=== PATIENT | female | born 1970 | race American Indian/Alaskan Native ===

== ENCOUNTER 2020-07-16 09:24 | Outpatient (REF) | payer OTHER, SELFPAY | END 2020-07-16 09:25 | disposition home or self-care (01) | LOC: HO.HAP 09:24 | PROVIDERS: Visit Provider Physician Assistant | DX: Z46.1 Encounter for fitting and adjustment of hearing aid (principal) | CPT/HCPCS: V5264; V5266 ==

== ENCOUNTER 2020-08-17 08:19 | Outpatient (REF) | payer OTHER, SELFPAY ==
--- NOTE | 2020-08-17 08:23 | CT_ITS ---
EXAMINATION: CT HEAD WITHOUT CONTRAST CLINICAL INFORMATION: Headaches. COMPARISON: None TECHNIQUE: Contiguous axial imaging was performed from the skull base to vertex without intravenous administration of contrast. Coronal and sagittal reformatted images were obtained. This CT examination was performed using dose optimization techniques as appropriate, variously including the following: *Automated exposure control *Adjustment of mA and/or kV according to patient size (this includes techniques or standardized protocols for targeted exams where dose is matched to indication/reason for exam; i.e. extremities or head) *Use of iterative reconstruction technique DLP: 708 mGy-cm FINDINGS: There is no evidence of acute intracranial hemorrhage or territorial infarction. No abnormal mass effect or midline shift is seen. Thompson to white matter differentiation is well preserved. No extra-axial fluid collections are identified. The ventricles are normal in size. There is no abnormal attenuation within the brain parenchyma. The osseous structures and soft tissues are normal. The visualized paranasal sinuses are clear. There is hypoaeration of the left mastoid air cells without abnormality. The right mastoid air cells are clear. CT/CT head/brain wo con IMPRESSION: No acute intracranial pathology.
== END 2020-08-17 08:20 | disposition home or self-care (01) ==
LOC: HO.CT 08:19
PROVIDERS: PCP Physician Assistant; Visit Provider Physician Assistant
DX: R51.9 Headache, unspecified (principal)
CPT/HCPCS: 70450

== ENCOUNTER 2020-11-02 12:11 | Outpatient (REF) | payer OTHER, SELFPAY | END 2020-11-02 12:12 | disposition home or self-care (01) | LOC: HO.LAB 12:11 | PROVIDERS: Visit Provider Internal Medicine | DX: Z20.822 Contact with and (suspected) exposure to COVID-19 (principal) | CPT/HCPCS: 36415; C9803; U0003; U0005 ==

== ENCOUNTER 2020-11-23 15:40 | Outpatient (REF) | payer OTHER, SELFPAY | END 2020-11-23 15:41 | disposition home or self-care (01) | LOC: HO.LAB 15:40 | PROVIDERS: Visit Provider Internal Medicine | DX: Z20.822 Contact with and (suspected) exposure to COVID-19 (principal) | CPT/HCPCS: 36415; C9803; U0003; U0005 ==

== ENCOUNTER 2020-11-28 12:06 | Outpatient (REF) | payer OTHER, SELFPAY ==
[2020-11-28 13:19] LABS: MANUAL DIFF FLAG NO
[2020-11-28 13:34] LABS: Basophils Percent Auto 0.5 % (0-2); Eosinophils Absolute Auto 0.1 X10*3/uL (0.0-0.4); Eosinophils Percent Auto 0.9 % (0-4); Hematocrit 35.9 % (37-47); Hemoglobin 11.2 g/dl (12.0-16.0); Imm Gran Abs Auto 0.03 X10*3/uL (0.00-0.03); Imm Gran Pct Auto 0.5 % (0.0-0.4); Lymphocytes Absolute Auto 1.9 X10*3/uL (1.2-4.9); Lymphocytes Percent Auto 29.2 % (20-40); Mean Corpuscular HGB Conc 31.2 g/dl (31.0-35.0); Mean Corpuscular Hemoglobin 26.4 pg (27.0-33.0); Mean Corpuscular Volume 84.7 fL (80-98); Mean Platelet Volume 10.6 fL (9.4-12.3); Monocytes Absolute Auto 0.6 X10*3/uL (0.1-1.2); Monocytes Percent Auto 9.1 % (2-11); Neutrophils Absolute Auto 3.9 X10*3/uL (2.0-8.3); Neutrophils Percent Auto 59.8 % (45-73); Platelet Count 415 X10*3/uL (160-400); Red Blood Count 4.24 X10*6/uL (4.20-5.50); Red Cell Distribution Width 12.4 % (11.0-16.0); White Blood Count 6.6 X10*3/uL (4.8-10.8)
[2020-11-28 13:48] LABS: Alanine Aminotransferase 21 U/L (0-31); Albumin Level 4.6 g/dL (3.5-5.0); Alkaline Phosphatase 70 U/L (39-117); Amylase 146 U/L (28-100); Anion Gap 13 (12-20); Aspartate Amino Transferase 19 U/L (5-31); Bilirubin Total 0.6 mg/dL (0.0-1.0); Blood Urea Nitrogen 14 mg/dL (9-16); Calcium 9.4 mg/dL (8.4-10.2); Carbon Dioxide 26 mmol/L (22-29); Chloride 104 mmol/L (96-108); Estimated Glomerular Filt Rate > 60; Glucose Fasting 92 mg/dL (60-99); Lipase 41 U/L (8-78); Potassium 4.6 mmol/L (3.3-5.1); Sodium 138 mmol/L (135-145); Total Protein 7.9 g/dL (6.5-8.0)
[2020-11-28 13:49] LABS: Glucose Urine UA NEG (NEG); Leukocyte Esterase Urine 2+ (NEG); Nitrite Urine NEG (NEG); Specific Gravity - Urine 1.025 (1.005-1.025); Urine Blood NEG (NEG); Urine Ketones NEG (NEG); Urine Protein NEG (NEG-TRACE)
[2020-11-28 13:58] LABS: Appearance Urine HAZY; Color Urine YELLOW
[2020-11-28 14:15] LABS: Bacteria Urine 1+ /LPF; Mucus Urine 1+ /LPF; RBC Urine 0 /HPF (0); Squamous Epithelial Cell Urine 2+ /LPF
== END 2020-11-28 12:07 | disposition home or self-care (01) ==
LOC: HO.LAB 12:06
PROVIDERS: PCP Physician Assistant; Visit Provider Nurse Practitioner Family
DX: K76.0 Fatty (change of) liver, not elsewhere classified (principal); Z87.19 Personal history of other diseases of the digestive system
CPT/HCPCS: 36415; 80053; 81001; 82150; 83690; 85025

== ENCOUNTER 2020-12-10 13:10 | Outpatient (REF) | payer OTHER, SELFPAY ==
--- NOTE | ~2020-12-10 | MM_ITS ---
EXAMINATION: MM SCREENING DIGITAL BREAST TOMOSYNTHESIS, BILATERAL CLINICAL INFORMATION: Screening. Asymptomatic. The lifetime risk of breast cancer based on the Tyrer-Cuzick Model is 11%. COMPARISON: Mammography: 12/07/2019, 10/15/2016 TECHNIQUE: Digital breast tomosynthesis is performed in both the craniocaudal and mediolateral oblique views along with computer-aided detection (CAD). Synthesized 2D images are generated from the tomosynthesis. FINDINGS: There are scattered areas of fibroglandular density (ACR BI-RADS breast composition Category b). There are no significant masses, abnormal calcifications, or other abnormalities. Parenchymal pattern is similar to prior study. There is biopsy clip marker again noted posterior 12:00 right breast. No significant changes. MM/MM tomosynthesis screening BI IMPRESSION: No mammographic evidence of malignancy. ASSESSMENT: BI-RADS 1: Negative RECOMMENDATION: Routine annual mammography screening. This patient's information was entered into a reminder system with a target due date for their next mammogram.
== END 2020-12-10 13:11 | disposition home or self-care (01) ==
LOC: HO.MAMMO 13:10
PROVIDERS: Visit Provider Physician Assistant
DX: Z12.31 Encounter for screening mammogram for malignant neoplasm of breast (principal)
CPT/HCPCS: 77063; 77067

== ENCOUNTER 2021-02-20 13:00 | Outpatient (RCR) | payer OTHER, SELFPAY ==
--- NOTE | 2021-02-05 13:23 | MHC.OT.OEV ---
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 WAS SEEN AT [facility] ER WITH ELEVATED BP, CP AND R UE PAIN. Pt REPORTS IMAGING CAME BACK NEGATIVE. DIAGNOSIS OF CELLULITIS. 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 (CLIENT A : 5 HOURS THURSDAY THROUGH THURSDAY + CLIENT B : 5 HOURS THURSDAY THROUGH THURSDAY) JOB DUTIES FOR CLIENT A INCLUDE: ROLLING, TRANSFERRING, HYGIENE, USING JENNY LIFT MACHINE (150 LB CLIENT) CLIENT B : COOKING, CLEANING, TRANSPORTATION, BATHING/DRESSING AND ASSISTING WITH BED MOBILITY (230 POUND CLIENT) AT HOME, DIFFICULTLY WITH LIFTING HEAVY ITEMS, OPENING A TIGHT JAR, USING NON-DOMINANT LUE FOR STIRRING, VACUUMING DUE TO PAIN IN RUE FOR IADLs Sleep: MODERATE INTERRUPTION WITH SLEEPING DUE TO PAIN Driving: PAIN WITH TURNING WHEEL Pain Assessment Pain Score: 3-9/10 Pain Scale Used: Numeric (0 - 10) Pain Location and Description: RIGHT AUXILIARY REGION, R LATERAL/ MEDIAL ELBOW AND VOLAR FOREARM AND WRIST NONSPECIFIC RADIATING PAIN Aggravating Factors: LIFTING, CARRYING Alleviating Factors: USING IBUPROPHEN FOR PAIN RELIEF, HAS NOT TRIED ICE OR HEAT Skin and Soft Tissue Assessment Skin and Soft Tissue: Swelling Ecchymosis Comments: R VOLAR FOREARM AND ELBOW WITH MILD SWELLING MEDIALLY > PROXIMALLY , SMALL AREAS OF ECCHYMOSIS AT R FOREARM Nerve assessment Ulnar Nerve: Not Tested Median Nerve: Not Tested Radial Nerve: Not Tested Comments: CONTINUE TO ASSESS Sensory Assessment Temperature: Light Touch: WFL Proprioception: Vibration: Comments: Edema Assessment Upper Extremity: Right Impaired Lower Extremity: Comments: CIRCUMFERENCE OF WRIST, DISTAL TO U.S. : RIGHT 14.6 CM, LEFT 14.9 CM CIRCUMFERENCE OF FOREARM, 17 CM FROM U.S.: RIGHT: 24.3 CM, LEFT 23.7 CM CIRCUMFERENCE OF ELBOW: RIGHT: 24.0 CM, LEFT: 23.8 CM Dexterity Assessment Dexterity: WFL Comments: FUNCTIONAL DEXTERITY TEST: RIGHT 32 SECONDS (MODERATELY FUNCTIONAL) , LEFT: 28 SECONDS (MODERATELY FUNCTIONAL) Special Tests Comments: RONNIE (+) ON R AROM(PROM) Strength Shoulder Flexion: R 150, L 180 Extension: Abduction: Internal Rotation: External Rotation: Comments: Flexion: Extension: Abduction: Internal Rotation: External Rotation: Comments: Elbow Flexion: R 140, L 140 Extension: R 0, L 0 Pronation: R 90, L 95 Supination: R 85, L 90 Comments: Flexion: Extension: Pronation: Supination: Comments: Wrist Flexion: R 80, L 70 Extension: R 75, L 70 Ulnar Deviation: Radial Deviation: Comments: Flexion: Extension: Ulnar Deviation: Radial Deviation: Comments: Digits Index MCP: PIP: DIP: Long MCP: PIP: DIP: Ring MCP: PIP: DIP: Small MCP: PIP: DIP: Comments: Gross Grasp: R 22, L 60 Lateral Pinch: R 6, L 13 Two-Point Pinch: R 4, L 8 Three-Jaw Lokesh: R 5, L 7 Comments: R ELBOW FLEXED 22 POUNDS, ELBOW EXTENDED 30 POUNDS Patient Education 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 Patient demonstrates Patient verbalizes Barriers to Learning: None Readiness for Learning: Accepting Who was educated? Patient Family/spouse Comments: Plan of Care Assessment: DALE PRESENTS WITH A DIAGNOSIS OF RIGHT LATERAL EPICONDYLITIS TO HER DOMINANT RUE. SHE REPORTS BEGINNING A NEW POSITION WITH A NEW CLIENT ABOUT A MONTH AND A HALF AGO. SHE WAS TRANSFERRING THIS PATIENT FROM BED TO CHAIR VIA A JENNY LIFT, WHEN SHE DEVELOPED A PAIN RADIATING DOWN HER RIGHT ARM. SHE HAS GENERALIZED PAIN FROM 3-9/10 THROUGHOUT HER RUE. SHE REPORTS A 41% LIMITATION PER THE QUICK DASH ASSESSMENT. 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 ONGOING SKILLED OT IS WARRANTED TO ACHIEVE HER OPTIMAL FUNCTIONAL LEVEL AND IMPROVE QOL. STG Duration: 2 WEEKS Short Term Goals: IND HEP IND USE OF HEAT/ ICE IND JOINT PROTECTION AND ACTIVITY MODIFICATION REPORT <5/10 PAIN WITH ADLs AND LIGHT IADLs LTG Duration: 4 WEEKS Mcc Goals: QUICKDASH <20 R GRASP > 40 POUNDS DEMO PROPER LIFTING, TRANSFERRING TECHNIQUES FOR WORK RELATED TASKS LIFT WAIST TO HEIGHT >10 POUNDS WITH <4/10 PAIN Frequency and Duration: The patient will be seen 2X/WEEK FOR 4 WEEKS Treatment Plan: Therapeutic Exercise Therapeutic Activity Home Exercise Program Splinting Neuro Re-ed Patient Education Desensitization/Sensory Re-ed Edema Control ADL Training Ultrasound NMES Iontophoresis Paraffin Fluidotherapy MHP Cold Packs Joint Mobilization Soft Tissue Mobilization Kinesiotaping Electronically Signed By: ARUNA YUSUF OTR/L Reviewed/agree with student documentation: N/A Therapist: Please sign and return to therapist, Thank you for your referral.
--- NOTE | 2021-03-18 13:43 | MHC.OT.DC ---
[address] [phone] F: [phone] Occupational Therapy Discharge Note Provider: Boston Garza Diagnosis: LATERAL EPICONDYLITIS OF RIGHT ELBOW Date of Evaluation: 02/05/21 Date of Discharge: 03/18/21 Treatments to Date: 4 Cancellations to Date: 3 No Shows to Date: 3 Discharge Status: Improved Function Patient Elected to Stop Discharge Summary: MS LAWSON REPORTED ONGOING PAIN TO HER DOMINANT, RIGHT ELBOW. SHE WAS EDUCATED ON JOINT PROTECTION AND THERAPEUTIC EXERCISE, WELL USE OF HEAT/COLD. SHE WAS MOTIVATED TO PARTICIPATE, HOWEVER DECLINED TO FOLLOW THROUGH WITH HER OT APPOINTMENTS DESPITE ATTEMPTS TO CONTACT PATIENT. SHE WILL BE DISCHARGED AT THIS TIME. D/C OT SERVICES. Electronically Signed By: ARUNA YUSUF OTR/Cheryl Reviewed/agree with student documentation: N/A Therapist: Please Sign and return to therapist, thank you for your referral.
== END 2021-03-18 13:45 | disposition other institution (70) ==
LOC: HO.OT 13:00
PROVIDERS: PCP Physician Assistant; Visit Provider Internal Medicine
DX: M77.11 Lateral epicondylitis, right elbow (principal)
CPT/HCPCS: 97035; 97110; 97140; 97165; 97166

== ENCOUNTER 2021-05-28 09:23 | Outpatient (REF) | payer OTHER, SELFPAY ==
[2021-05-28 10:21] LABS: Alanine Aminotransferase 16 U/L (0-31); Albumin Level 4.2 g/dL (3.5-5.0); Alkaline Phosphatase 83 U/L (39-117); Anion Gap 10 (12-20); Aspartate Amino Transferase 17 U/L (5-31); Bilirubin Total 0.6 mg/dL (0.0-1.0); Blood Urea Nitrogen 9 mg/dL (9-16); Calcium 9.1 mg/dL (8.4-10.2); Carbon Dioxide 26 mmol/L (22-29); Chloride 105 mmol/L (96-108); Cholesterol 210 mg/dL; Estimated Glomerular Filt Rate > 60; Glucose Fasting 90 mg/dL (60-99); HDL Cholesterol 57 mg/dL; LDL Cholesterol Calculated 118 mg/dl; Potassium 4.4 mmol/L (3.3-5.1); Sodium 137 mmol/L (135-145); Total Protein 7.1 g/dL (6.5-8.0); Triglycerides 175 mg/dL
[2021-05-28 10:44] LABS: TSH reflex Free T4 1.42 uIU/mL (0.32-4.0)
[2021-05-28 14:34] LABS: Estimated Average Glucose 94 mg/dL; Hemoglobin A1c % 4.9 %
== END 2021-05-28 09:24 | disposition home or self-care (01) ==
LOC: HO.LAB 09:23
PROVIDERS: PCP Physician Assistant; Visit Provider Physician Assistant
DX: Z13.220 Encounter for screening for lipoid disorders (principal); Z13.1 Encounter for screening for diabetes mellitus; I10 Essential (primary) hypertension
CPT/HCPCS: 36415; 80053; 80061; 83036; 84443

== ENCOUNTER 2021-06-28 09:44 | Outpatient (REF) | payer OTHER, SELFPAY ==
[2021-06-28 10:59] LABS: C Reactive Protein 0.43 mg/dL (< or = 0.50)
[2021-06-28 11:30] LABS: Erythrocyte Sedimentation Rate 25 MM/HR (0-20)
[2021-06-28 11:36] LABS: Appearance Urine CLEAR; Color Urine YELLOW; Glucose Urine UA NEG (NEG); Leukocyte Esterase Urine NEG (NEG); Nitrite Urine NEG (NEG); Specific Gravity - Urine 1.025 (1.005-1.025); Urine Blood NEG (NEG); Urine Ketones NEG (NEG); Urine Protein NEG (NEG-TRACE)
== END 2021-06-28 09:45 | disposition home or self-care (01) ==
LOC: HO.LAB 09:44
PROVIDERS: PCP Physician Assistant; Visit Provider Physician Assistant
DX: R51.9 Headache, unspecified (principal); R30.0 Dysuria; N39.0 Urinary tract infection, site not specified
CPT/HCPCS: 36415; 81003; 85652; 86140

== ENCOUNTER → 2021-07-02 10:31 | Outpatient (BNVA) | payer OTHER, SELFPAY | PROVIDERS: PCP Physician Assistant; Visit Provider Psychiatry & Neurology Neurology | DX: F51.01 Primary insomnia (principal); G47.9 Sleep disorder, unspecified; G47.10 Hypersomnia, unspecified; N39.0 Urinary tract infection, site not specified; A04.71 Enterocolitis due to Clostridium difficile, recurrent; Z88.6 Allergy status to analgesic agent; Z88.0 Allergy status to penicillin; Z88.7 Allergy status to serum and vaccine; Z88.8 Allergy status to other drugs, medicaments and biological substances | CPT/HCPCS: 99202 ==

== ENCOUNTER 2021-07-23 07:41 | Outpatient (REF) | payer OTHER, SELFPAY ==
--- NOTE | ~2021-07-23 | XR_ITS ---
EXAMINATION: XR KNEE AP STANDING, BILATERAL XR KNEE, 2 VIEWS, LEFT CLINICAL INFORMATION: Pain. COMPARISON: Bilateral knee radiographs dated 03/23/2020 TECHNIQUE: Standing AP view of both knees and lateral and sunrise views of the left knee. FINDINGS: Right knee: No joint space narrowing or marginal osteophytes. No osseous erosion. No abnormal soft tissue calcification. No fracture or dislocation. Left knee: No joint space narrowing. Tiny patellofemoral marginal osteophytes, unchanged. No osseous erosion. No fracture or dislocation. No significant joint effusion. XR/XR knee standing BI IMPRESSION: Mild left knee patellofemoral arthrosis, unchanged.
--- NOTE | ~2021-07-23 | XR_ITS ---
EXAMINATION: XR KNEE AP STANDING, BILATERAL XR KNEE, 2 VIEWS, LEFT CLINICAL INFORMATION: Pain. COMPARISON: Bilateral knee radiographs dated 03/23/2020 TECHNIQUE: Standing AP view of both knees and lateral and sunrise views of the left knee. FINDINGS: Right knee: No joint space narrowing or marginal osteophytes. No osseous erosion. No abnormal soft tissue calcification. No fracture or dislocation. Left knee: No joint space narrowing. Tiny patellofemoral marginal osteophytes, unchanged. No osseous erosion. No fracture or dislocation. No significant joint effusion. XR/XR knee LT 2V IMPRESSION: Mild left knee patellofemoral arthrosis, unchanged.
== END 2021-07-23 07:42 | disposition home or self-care (01) ==
LOC: HO.HOSX 07:41
PROVIDERS: Visit Provider Physician Assistant
DX: M17.12 Unilateral primary osteoarthritis, left knee (principal)
CPT/HCPCS: 20610; 73560; 73565; 99212; J1040

== ENCOUNTER → 2021-07-25 08:14 | Outpatient (REF) | payer OTHER, SELFPAY | LOC: HO.SL 08:14 | PROVIDERS: PCP Physician Assistant; Visit Provider Psychiatry & Neurology Neurology | DX: G47.10 Hypersomnia, unspecified (principal); G47.9 Sleep disorder, unspecified; F51.01 Primary insomnia | CPT/HCPCS: 95806 ==

== ENCOUNTER 2021-08-08 12:34 | Outpatient (REF) | payer OTHER, SELFPAY ==
--- NOTE | ~2021-08-08 | US_ITS ---
EXAMINATION: US TEMPORAL ARTERY, BILATERAL CLINICAL INFORMATION: Localized right temporal headache. COMPARISON: None TECHNIQUE: Color-flow duplex imaging and spectral waveform analysis was performed on the bilateral temporal arteries. FINDINGS: RIGHT: Common Temporal Artery: PSV: 98 cm/s Wall Appearance: Normal Focal Stenosis: None Frontal Ramus Artery: PSV: 84 cm/s Wall Appearance: Normal Focal Stenosis: None LEFT: Common Temporal Artery: PSV: 102 cm/s Wall Appearance: Normal Focal Stenosis: None Frontal Ramus Artery: PSV: 117 cm/s Wall Appearance: Normal Focal Stenosis: None ADDITIONAL: Along the right alevism in the subcutaneous tissues adjacent to the common temporal artery is a 3 x 5 x 4 mm ovoid hypoechoic focus with a thin vascular hilum most consistent with a small, morphologically normal-appearing lymph node. US/US soft tiss head and/or neck IMPRESSION: No duplex ultrasound evidence of temporal arteritis. Along the right alevism in the subcutaneous tissues is a 5 mm ovoid structure, most consistent with a small lymph node.
== END 2021-08-08 12:35 | disposition home or self-care (01) ==
LOC: HO.US 12:34
PROVIDERS: PCP Physician Assistant; Visit Provider Physician Assistant
DX: R51.9 Headache, unspecified (principal); H57.11 Ocular pain, right eye
CPT/HCPCS: 76536

== ENCOUNTER → 2021-11-05 14:44 | Outpatient (BNVA) | payer OTHER, SELFPAY | PROVIDERS: PCP Physician Assistant; Visit Provider Physician Assistant | DX: M23.92 Unspecified internal derangement of left knee (principal) | CPT/HCPCS: 99212 ==

== ENCOUNTER 2021-11-06 08:49 | Outpatient (REF) | payer OTHER, SELFPAY ==
[2021-11-06 10:17] LABS: Hematocrit 36.2 % (37.0-47.0); Hemoglobin 11.3 g/dl (12.0-16.0); Mean Corpuscular HGB Conc 31.2 g/dl (31.0-35.0); Mean Corpuscular Hemoglobin 26.9 pg (27.0-33.0); Mean Corpuscular Volume 86.2 fL (80.0-98.0); Mean Platelet Volume 11.3 fL (9.4-12.3); Platelet Count 342 X10*3/uL (160-400); Red Cell Distribution Width 11.6 % (11.0-16.0); White Blood Count 9.6 X10*3/uL (4.8-10.8)
[2021-11-06 12:23] LABS: Creatinine Urine 88.12 mg/dL; Microalbum/Creatinine Ratio Ur 11.3 ug/mg cr
[2021-11-06 13:08] LABS: TSH reflex Free T4 1.59 uIU/mL (0.32-4.0)
[2021-11-06 13:25] LABS: Alanine Aminotransferase 15 U/L (0-31); Albumin Level 4.4 g/dL (3.5-5.0); Alkaline Phosphatase 81 U/L (39-117); Anion Gap 12 (12-20); Aspartate Amino Transferase 18 U/L (5-31); Bilirubin Total 0.5 mg/dL (0.0-1.0); Carbon Dioxide 27 mmol/L (22-29); Chloride 106 mmol/L (96-108); Cholesterol 250 mg/dL; Estimated Glomerular Filt Rate > 60; Glucose Fasting 88 mg/dL (60-99); HDL Cholesterol 63 mg/dL; LDL Cholesterol Calculated 156 mg/dl; Potassium 4.5 mmol/L (3.3-5.1); Sodium 140 mmol/L (135-145); Total Protein 7.5 g/dL (6.5-8.0); Triglycerides 155 mg/dL
[2021-11-06 15:35] LABS: Blood Urea Nitrogen 17 mg/dL (9-16); Calcium 9.7 mg/dL (8.4-10.2)
== END 2021-11-06 08:50 | disposition home or self-care (01) ==
LOC: HO.LAB 08:49
PROVIDERS: PCP Physician Assistant; Visit Provider Physician Assistant
DX: I10 Essential (primary) hypertension (principal)
CPT/HCPCS: 36415; 80053; 80061; 82043; 84443; 85027

== ENCOUNTER 2021-12-03 10:33 | Outpatient (REF) | payer OTHER, SELFPAY ==
--- NOTE | ~2021-12-03 | MR_ITS ---
EXAMINATION: MR KNEE WITHOUT CONTRAST, LEFT CLINICAL INFORMATION: Internal derangement of left knee. COMPARISON: X-ray the left knee June 2021 TECHNIQUE: MRI of the knee without contrast was performed using routine sequences on a high-field scanner. FINDINGS: MENISCI: Medial Meniscus: There is blunting of the free edge of the medial meniscus. There appears to be a small meniscal fragment extending along the meniscal tibial recess in the region of the body. This has the appearance of a partially detached torn meniscal fragment. Lateral Meniscus: Intact LIGAMENTS: Cruciate: Intact Collateral: Intact EXTENSOR MECHANISM: Intact ARTICULAR CARTILAGE/BONE: Patellofemoral Compartment: There is scattered cartilage heterogeneity in surface fissuring of the median ridge and lateral facet of the patella. Trochlear cartilage normal. Medial Compartment: Normal Lateral Compartment: Normal JOINT FLUID AND BURSAE: There is a mild joint effusion and synovitis. MR/MR knee LT wo con IMPRESSION: 1. Tear the medial meniscus with a small partially detached meniscal fragment extending into the meniscal tibial recess. 2. Mild patellofemoral arthrosis.
== END 2021-12-03 10:34 | disposition home or self-care (01) ==
LOC: HO.MRI 10:33
PROVIDERS: Visit Provider Physician Assistant
DX: M17.12 Unilateral primary osteoarthritis, left knee (principal); M23.92 Unspecified internal derangement of left knee
CPT/HCPCS: 73721

== ENCOUNTER → 2021-12-16 11:02 | Outpatient (BNVA) | payer OTHER, SELFPAY | PROVIDERS: PCP Physician Assistant; Visit Provider Orthopaedic Surgery | DX: M25.562 Pain in left knee (principal); S83.242A Other tear of medial meniscus, current injury, left knee, initial encounter; X58.XXXA Exposure to other specified factors, initial encounter; Y93.9 Activity, unspecified; Y92.9 Unspecified place or not applicable; Y99.8 Other external cause status; Z88.6 Allergy status to analgesic agent; Z88.1 Allergy status to other antibiotic agents; Z88.0 Allergy status to penicillin; Z88.7 Allergy status to serum and vaccine; Z88.8 Allergy status to other drugs, medicaments and biological substances | CPT/HCPCS: 99212 ==

== ENCOUNTER 2021-12-27 07:26 | Day surgery (SDC) | payer OTHER, SELFPAY ==
[2021-12-23 11:00] VITALS: BMI 29.2
--- NOTE | 2021-12-25 13:53 | P.CONAN_ITS ---
Documented by User: Anushka Oden NP 12/25/21 13:58 HPI - Anesthesia Eval Consult details Narrative: 51yo F for Left Knee Arthroscopy *Multiple Med Allergies* PMFSH Active Problems Active Problems: All Active Problems (Updated 12/16/21 @ 11:55 by Neel Olivarez MD) Tear of medial meniscus of left knee (Acute) Colon cancer screening (Acute) Internal derangement of left knee (Acute) Osteoarthritis of left knee (Acute) Spastic bladder (Acute) Hypersomnia (Acute) Dermatitis (Acute) Right-sided headache (Acute) Ocular pain, right eye (Acute) HTN (hypertension) (Acute) Screening for hypercholesterolemia (Acute) Screening for diabetes mellitus (DM) (Acute) Annual physical exam (Acute) Sleep disturbance (Acute) Insomnia (Acute) Lateral epicondylitis of right elbow (Acute) Hypertriglyceridemia (Acute) Anemia (Acute) Blood pressure elevated without history of HTN (Acute) Frequency of micturition (Acute) Otitis media (Acute) Dysuria (Acute) Constipation (Acute) Allergic rhinitis (Acute) Insomnia (Acute) Migraines (Acute) UTI (urinary tract infection) (Acute) CHIDI (generalized anxiety disorder) (Acute) Frequent headaches (Acute) Hepatic steatosis (Acute) History of pancreatitis (Acute) GERD (gastroesophageal reflux disease) (Acute) Trigeminal neuralgia of right side of face (Acute) Chronic left-sided headache (Acute) Past Medical History Medical History History of Clostridioides difficile colitis UTI (urinary tract infection) Family History Family History Father Colon cancer Mother No problems noted. Sister No problems noted. 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 Allergies Allergy/AdvReac Type Severity Reaction Status Date / Time penicillin G [Penicillin G] Allergy Mild ITCH,HIVES Verified 11/06/21 08:02 codeine Allergy Unknown hives Verified 11/06/21 08:02 diphtheria,pertussis Allergy Unknown swollen Verified 11/06/21 08:02 (acellular),te [From Adacel(Tdap Adolesn/Adult)(PF)] Influenza Virus Vaccines Allergy Unknown arm Verified 11/06/21 08:02 swelling morphine Allergy Unknown hives Verified 11/06/21 08:02 trazodone Allergy Unknown rash Verified 11/06/21 08:02 amlodipine AdvReac Mild dizziness Verified 11/06/21 08:02 Exam Exam Date and Time: December 25, 2021 1353 Height,Weight and Vital Signs: Height 5 ft 1 in Weight 70.307 kg Pertinent Lab Results Pertinent Lab Results: Laboratory Tests 11/06/21 11/06/21 09:05 09:05 WBC 9.6 Hgb 11.3 L Hct 36.2 L Plt Count 342 Sodium 140 Potassium 4.5 Chloride 106 Carbon Dioxide 27 BUN 17 H Creatinine 0.78 Assessment and Plan Assessment Anesthesia Assessment: Chart Reviewed Documented by User: Jayna Pal MD 12/27/21 08:19 [facility] Past Medical History Medical History History of Clostridioides difficile colitis UTI (urinary tract infection) Family History Family History Father Colon cancer Mother No problems noted. Sister No problems noted. Maternal Grandmother Esophageal cancer Surgical History Surgical History History of laparoscopic cholecystectomy History of Problems with Anesthesia: No Social History Social History Housing: Apartment Alcohol intake: current Alcohol intake frequency: does not drink Patient Tobacco Use Status: Former Tobacco user Quit Date: 2015 e-Cigarette/Vaping Use: Never Used Second Hand Smoke Exposure: No Use of substances other than those prescribed or required for medical reasons: No Substance Use Type: Marijuana Are you DNR?: No Advance Directives: No Advance Directives Information Provided: Yes Current occupational status: 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 Allergies Allergy/AdvReac Type Severity Reaction Status Date / Time penicillin G [Penicillin G] Allergy Mild ITCH,HIVES Verified 11/06/21 08:02 codeine Allergy Unknown hives Verified 11/06/21 08:02 diphtheria,pertussis Allergy Unknown swollen Verified 11/06/21 08:02 (acellular),te [From Adacel(Tdap Adolesn/Adult)(PF)] Influenza Virus Vaccines Allergy Unknown arm Verified 11/06/21 08:02 swelling morphine Allergy Unknown hives Verified 11/06/21 08:02 trazodone Allergy Unknown rash Verified 11/06/21 08:02 amlodipine AdvReac Mild dizziness Verified 11/06/21 08:02 Exam Airway Mallampati Class: II TM Dist: >3cm Neck ROM: Full Partial: Upper Loose/Missing/Broken Teeth: Yes and Upper Heart: RRR Lungs: CTA Assessment and Plan Assessment Anesthesia Assessment: Anesthesia Plan Discussed Final Anesthetic Review History of Problems with Anesthesia: No NPO: Yes ASA Class: II Final Preanesthetic Review: Meds/Allgs Chart Reviewed, Consent Obtained/Reviewed and Anes Risks/Benef Reviewed Patient Risk: Low Procedure Risk: Low Anesthetic Plan Anesthetic Plan: GA Disposition: Standard PACU
[2021-12-27] VITALS (7 sets, daily range): BP systolic 131–159; BP diastolic 77–90; PULSE 76–100; RESP 16–18; TEMP 37.1–37.3; O2SAT 98–100
[2021-12-27] MEDS: Lactated Ringers 1,000 ML 100 ML IVCONT (08:09)
--- NOTE | 2021-12-27 08:35 | P.CONAN_ITS ---
REPLACED BY [facility] Active Problems Active Problems: All Active Problems (Updated 12/16/21 @ 11:55 by Neel Olivarez MD) Tear of medial meniscus of left knee (Acute) Colon cancer screening (Acute) Internal derangement of left knee (Acute) Osteoarthritis of left knee (Acute) Spastic bladder (Acute) Hypersomnia (Acute) Dermatitis (Acute) Right-sided headache (Acute) Ocular pain, right eye (Acute) HTN (hypertension) (Acute) Screening for hypercholesterolemia (Acute) Screening for diabetes mellitus (DM) (Acute) Annual physical exam (Acute) Sleep disturbance (Acute) Insomnia (Acute) Lateral epicondylitis of right elbow (Acute) Hypertriglyceridemia (Acute) Anemia (Acute) Blood pressure elevated without history of HTN (Acute) Frequency of micturition (Acute) Otitis media (Acute) Dysuria (Acute) Constipation (Acute) Allergic rhinitis (Acute) Insomnia (Acute) Migraines (Acute) UTI (urinary tract infection) (Acute) CHIDI (generalized anxiety disorder) (Acute) Frequent headaches (Acute) Hepatic steatosis (Acute) History of pancreatitis (Acute) GERD (gastroesophageal reflux disease) (Acute) Trigeminal neuralgia of right side of face (Acute) Chronic left-sided headache (Acute) Past Medical History Medical History History of Clostridioides difficile colitis UTI (urinary tract infection) Family History Family History Father Colon cancer Mother No problems noted. Sister No problems noted. Maternal Grandmother Esophageal cancer Family history of problems with anesthesia: No Surgical History Surgical History History of laparoscopic cholecystectomy History of Problems with Anesthesia: No Social History Social History Housing: Apartment Alcohol intake: current Alcohol intake frequency: does not drink Patient Tobacco Use Status: Former Tobacco user Quit Date: 2015 e-Cigarette/Vaping Use: Never Used Second Hand Smoke Exposure: No Use of substances other than those prescribed or required for medical reasons: No Substance Use Type: Marijuana Are you DNR?: No Advance Directives: No Advance Directives Information Provided: Yes Current occupational status: 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 Allergies Allergy/AdvReac Type Severity Reaction Status Date / Time penicillin G [Penicillin G] Allergy Mild ITCH,HIVES Verified 11/06/21 08:02 codeine Allergy Unknown hives Verified 11/06/21 08:02 diphtheria,pertussis Allergy Unknown swollen Verified 11/06/21 08:02 (acellular),te [From Adacel(Tdap Adolesn/Adult)(PF)] Influenza Virus Vaccines Allergy Unknown arm Verified 11/06/21 08:02 swelling morphine Allergy Unknown hives Verified 11/06/21 08:02 trazodone Allergy Unknown rash Verified 11/06/21 08:02 amlodipine AdvReac Mild dizziness Verified 11/06/21 08:02 Active Medications: Current Medications Acetaminophen (Acetaminophen 325 Mg Tablet) 650 mg PO ONCE PRN PRN Reason: Pain, Mild (Pain Scale 1-3) Albuterol Sulfate (Albuterol Sulfate (0.083%) 2.5 Mg/3 Ml Vial.Neb) 2.5 mg INHALE ONCE PRN PRN Reason: Wheezing Fentanyl (Fentanyl Citrate/Pf 100 Mcg/2 Ml Vial) 50 mcg IVPUSH Q5M PRN; Protocol PRN Reason: Pain, Severe (Pain Scale 7-10) Fentanyl (Fentanyl Citrate/Pf 100 Mcg/2 Ml Vial) 25 mcg IVPUSH Q5M PRN; Protocol PRN Reason: Pain, Moderate (Pain Scale 4-6 Lactated Ringer's (Lr) 1,000 mls @ 100 mls/hr IVCONT .Q10H RUBÉN Last Admin: 12/27/21 08:09 Dose: 100 mls/hr Documented by: Ondansetron HCl (Ondansetron Hcl 4 Mg/2 Ml Vial) 4 mg IVPUSH ONCE PRN PRN Reason: Nausea and Vomiting Oxycodone HCl (Oxycodone Hcl Immed Release 5 Mg Tablet) 10 mg PO ONCE PRN PRN Reason: Pain, Severe (Pain Scale 7-10) Oxycodone HCl (Oxycodone Hcl Immed Release 5 Mg Tablet) 5 mg PO ONCE PRN PRN Reason: Pain, Severe (Pain Scale 7-10) Exam Exam Date and Time: December 27, 2021 0835 Height,Weight and Vital Signs: Height 5 ft 1 in Weight 70.307 kg Last Vital Signs Temp 99.1 F 12/27/21 07:52 Pulse 76 12/27/21 07:52 Resp 16 12/27/21 07:52 BP 140/77 H 12/27/21 07:52 Pulse Ox 98 12/27/21 07:52 Airway Mallampati Class: II Neck ROM: Full Assessment and Plan Assessment Anesthesia Assessment: Anesthesia Plan Discussed and Chart Reviewed Final Anesthetic Review Family History of Problems with Anesthesia: No History of Problems with Anesthesia: No NPO: Yes ASA Class: II Final Preanesthetic Review: No Changes in Pt Med Stat, Meds/Allgs Chart Reviewed and Consent Obtained/Reviewed Patient Risk: Intermediate Procedure Risk: Intermediate Anesthetic Plan Anesthetic Plan: GA Disposition: Standard PACU
--- NOTE | 2021-12-27 09:07 | MHC.SHP ---
Pre-Procedural Eval Section A Date of Service: 12/27/21 The patient is an INPATIENT: No Changes since office visit: Yes Patient answered all questions; No Cold of Flu in the past 2 weeks, No New Medical Problems and No Changes in Medication The History & Physical has been completed within 30 days and I have reviewed it.: Yes Section B Chief Complaint: medial meniscus tear Allergies: Allergies Allergy/AdvReac Type Severity Reaction Status Date / Time penicillin G [Penicillin G] Allergy Mild ITCH,HIVES Verified 11/06/21 08:02 codeine Allergy Unknown hives Verified 11/06/21 08:02 diphtheria,pertussis Allergy Unknown swollen Verified 11/06/21 08:02 (acellular),te [From Adacel(Tdap Adolesn/Adult)(PF)] Influenza Virus Vaccines Allergy Unknown arm Verified 11/06/21 08:02 swelling morphine Allergy Unknown hives Verified 11/06/21 08:02 trazodone Allergy Unknown rash Verified 11/06/21 08:02 amlodipine AdvReac Mild dizziness Verified 11/06/21 08:02 Plan I have reviewed the history and physical and performed a pertinent physical examination on my patient. No changes have occurred unless specified.
--- NOTE | 2021-12-27 10:07 | P.BOP_ITS ---
Brief Operative Note Date of Service: 12/27/21 Pre-op diagnosis: left knee MMT Post-op diagnosis: same Procedure: left knee partial medial meniscectomy Implants: none Surgeon: Neel Olivarez MD Anesthesia: GETA Was an Charging Board Operator used for this Procedure?: No Estimated blood loss (mL): 0 IV fluids (mL): 800 Pathology: none sent Condition: stable Disposition: PACU
[2021-12-27] MEDS: oxyCODONE HCl Immed Release 5 MG TABLET PO (10:18)
[2021-12-27] MEDS: Acetaminophen 325 MG TABLET 650 MG PO (10:19)
--- NOTE | 2021-12-27 12:17 | W.PM.OPN ---
Operative Note Operative Note Date of Service: 12/27/21 Narrative: Pre-op diagnosis: left knee MMT Post-op diagnosis: same Procedure: left knee partial medial meniscectomy Implants: none Surgeon: Neel Olivarez MD Anesthesia: GETA Was an Jig Bore Operator used for this Procedure?: No Estimated blood loss (mL): 0 IV fluids (mL): 800 Pathology: none sent Condition: stable Disposition: PACU Procedure in detail: Patient was brought to the operating room placed supine on the arthroscopic table and prepped and draped in standard sterile fashion. A time-out was called to identify proper site proper procedure proper surgeon and IV antibiotics per weight were administered. I began by exsanguinating the limb and insufflating tourniquet to 300 mm Hg. I made a standard anterolateral stab incision. The knee was insufflated with water and 30 degree arthroscope was placed. There was grade 1 fibrillations of the patella but overall suprapatellar pouch was plane and the gutters were clean. I descended into the medial compartment where I made my medial portal under direct visualization. There was obvious of complex tear of the body and posterior horn of the medial meniscus with a loose flap of the undersurface of the meniscal body. Root was intact and there was grade 1 changes with some scattered grade 2 changes throughout the medial compartment. I used a combination of biter shaver and cautery to remove unstable portions of the meniscus. Approximately 40% meniscal volume was removed. Once I was happy with this the ACL was examined and found to be intact and the lateral compartment also was without the need for intervention. I then removed all instrumentation and closed the portals with skin glue. 25 mL of 2% Marcaine with epinephrine was injected into the joint and the surrounding soft tissues. Patient was then placed in sterile dressing extubated brought recovery room stable condition. There were no known complications.
== END 2021-12-27 11:35 | disposition home or self-care (01) ==
PROVIDERS: PCP Physician Assistant; Visit Provider Orthopaedic Surgery
PROC: (CPT 29870; principal; 2021-12-27 09:00)
DX: S83.232A Complex tear of medial meniscus, current injury, left knee, initial encounter (principal); X58.XXXA Exposure to other specified factors, initial encounter; Y93.9 Activity, unspecified; Y92.9 Unspecified place or not applicable; Y99.9 Unspecified external cause status; Z88.0 Allergy status to penicillin; Z88.5 Allergy status to narcotic agent; Z88.8 Allergy status to other drugs, medicaments and biological substances
CPT/HCPCS: 29881; J0171; J0690; J1100; J1885; J2250; J2405; J3010

== ENCOUNTER → 2022-01-02 09:20 | Outpatient (BNVA) | payer OTHER, SELFPAY | PROVIDERS: PCP Physician Assistant; Visit Provider Physician Assistant | DX: S83.242D Other tear of medial meniscus, current injury, left knee, subsequent encounter (principal) | CPT/HCPCS: 99212 ==

== ENCOUNTER 2022-01-29 11:00 | Outpatient (RCR) | payer OTHER, SELFPAY ==
--- NOTE | 2022-01-02 10:30 | MHC.PT.EP ---
[facility] [place] Office [place] [facility] [place] Office [address] Rubi Carrizales [address] [phone] F: [phone] F: [phone] F: [phone] F: [phone] Physical Therapy Plan of Care Date of Evaluation: Date of Surgery: 12/27/21 Diagnosis: S/P LEFT KNEE -> Left knee partial medial meniscectomy Assessment: 51 YO FEMALE S/P LEFT KNEE PARTIAL MEDIAL MENISCECTOMY ON 12/27/21; SHE IS CURRENTLY AMB [facility]. 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 OBJECTIVE FINDINGS: LIMITED AROM Lt KNEE, TIGHT PSOAS MM NINI AND DECR ANKLE DF NINI; DECR STRENGTH IN PROX / LUMBOPELVIC AND Lt LE, POST-OP PAIN IN LEFT KNEE ,AND HEALING ANT Lt KNEE INCISIONS. FUNCTIONALLY, Pt HAS COMPENSATORY GAIT, MODIFIED STAIR MGMT, DECR STANDING, SLEEPING, AND DECR BRIANNA TO ADLs REQ KNEE FLEX. Pt IS A VERY GOOD PT CANDIDATE TO GUIDE HER IN HER POST-OP COURSE, ADDRESSING THE ABOVE FINDINGS, PAIN MGMT, AND MAXIMIZING FUNCTIONAL INDEPENDENCE. Frequency and Duration: The patient will be seen 2 x WK X 8 wks Short Term Goals: Pt DEMON PROPER QUAD SET IN 1 WK Pt'S KNEE PAIN DECREASED TO 2-3/10 IN 2 WKS Pt DEMON WFL AROM HIP EXT AND ANKLE DF/PF AND AROM KNEE 0* TO 120* IN 3 WKS Pt DEMO IMPROVED GAIT MECH W LEAST RESTRICTIVE AD ON LEVEL GROUND AND STAIRS IN 2 WKS Cilnical Scientist Goals: Pt INDEP W HEP PROGRESSION AND SELF-SX MGMT STRATEGIES IN 5 WKS Pt RESUME REG ADLs EVIDENT W IMPROVED LEFI SCORE BY 8-10 POINTS (AT EVAL 24/80 ) IN 5 WKS Pt INCR LE STRENGTH BY 1 GRADE IN 5 WKS Treatment Plan: Modalities to reduce pain, spasms and effusion. Manual therapy to restore motion and function. Therapeutic exercise to improve strength and flexibility. Neuromuscular re-education for posture and balance. Therapeutic activities to return to functional activities of daily living. Electronically signed by: Rosio Boyer,PT Please sign and return to therapist. Thank you for your referral.
--- NOTE | 2022-04-15 08:31 | MHC.PT.DC ---
[facility] [place] Office [place] Office [place] Office [address] Rubi Carrizales 140 [facility] [phone] F: [phone] F: [phone] F: [phone] F: [phone] Physical Therapy Discharge Report Diagnosis: S/P LEFT KNEE -> Left knee partial medial meniscectomy Date of Surgery: 12/27/21 Date of Evaluation: 01/02/22 Date of Discharge: 04/15/22 Treatments to Date: 3 Cancellations to Date: 2 No Shows to Date: 2 Discharge Status: Improved Function Independent with HEP Patient Elected to Stop Discharge Summary: Pt PROGRESSED FAIRLY WELL IN PT- SHE HAS A THOROUGH HEP AND DEMON IMPROVED POSTURE/ EFFICIENT GAIT, AND OVERALL DECR PAIN IN LEFT LE. HER ATTENDANCE WAS INCONSISTENT NOTED ABOVE, DESPITE TEXTS / REMINDERS. Electronically signed by: Rosio Boyer,PT Please sign and return to therapist. Thank you for your referral.
== END 2022-04-15 08:31 | disposition home or self-care (01) ==
LOC: HO.PT 11:00
PROVIDERS: Visit Provider Physician Assistant
DX: S83.242D Other tear of medial meniscus, current injury, left knee, subsequent encounter (principal)
CPT/HCPCS: 97110; 97112; 97140; 97161

== ENCOUNTER → 2022-02-06 11:57 | Outpatient (BNVA) | payer OTHER, SELFPAY | PROVIDERS: PCP Physician Assistant; Visit Provider Physician Assistant | DX: S83.242D Other tear of medial meniscus, current injury, left knee, subsequent encounter (principal) | CPT/HCPCS: 99212 ==

== ENCOUNTER 2022-04-02 08:01 | Outpatient (REF) | payer OTHER, SELFPAY | END 2022-04-02 08:02 | disposition home or self-care (01) | LOC: HO.HOSX 08:01 | PROVIDERS: Visit Provider Orthopaedic Surgery | DX: Z13.89 Encounter for screening for other disorder (principal) ==

== ENCOUNTER 2022-04-24 10:22 | Outpatient (REF) | payer OTHER, SELFPAY ==
--- NOTE | ~2022-04-24 | MM_ITS ---
EXAMINATION: MM SCREENING DIGITAL BREAST TOMOSYNTHESIS, BILATERAL CLINICAL INFORMATION: Screening. Asymptomatic. The lifetime risk of breast cancer based on the Tyrer-Cuzick Model is 9%. COMPARISON: Mammography: 12/10/2020, 12/07/2019, outside exam 10/15/2016 ([facility]). TECHNIQUE: Digital breast tomosynthesis is performed in both the craniocaudal and mediolateral oblique views along with computer-aided detection (CAD). Synthesized 2D images are generated from the tomosynthesis. Additional right MLO view is provided. FINDINGS: There are scattered areas of fibroglandular density (ACR BI-RADS breast composition Category b). Parenchymal pattern is similar to prior studies. There is no interval mass or architectural abnormality or developing density. There is a stable intramammary node posterior upper outer right breast and a biopsy clip marker again seen posterior 12:00 right breast. Small parenchymal asymmetry posterior medial left breast on CC view is also chronic finding. The axilla and skin contours are unremarkable. MM/MM tomosynthesis screening BI IMPRESSION: No mammographic evidence of malignancy. ASSESSMENT: BI-RADS 2: Benign RECOMMENDATION: Routine annual mammography screening. This patient's information was entered into a reminder system with a target due date for their next mammogram.
== END 2022-04-24 10:23 | disposition home or self-care (01) ==
LOC: HO.MAMMO 10:22
PROVIDERS: PCP Physician Assistant; Visit Provider Physician Assistant
DX: Z12.31 Encounter for screening mammogram for malignant neoplasm of breast (principal)
CPT/HCPCS: 77063; 77067

== ENCOUNTER → 2022-05-19 | Outpatient (BNVA) | payer SELFPAY | PROVIDERS: PCP Physician Assistant; Visit Provider Internal Medicine | DX: Z02.79 Encounter for issue of other medical certificate (principal) ==

== ENCOUNTER 2022-05-31 09:16 | Outpatient (REF) | payer OTHER, SELFPAY ==
[2022-05-31 09:38] LABS: Hematocrit 36.4 % (37.0-47.0); Hemoglobin 11.4 g/dl (12.0-16.0); Mean Corpuscular HGB Conc 31.3 g/dl (31.0-35.0); Mean Corpuscular Hemoglobin 26.6 pg (27.0-33.0); Mean Corpuscular Volume 84.8 fL (80.0-98.0); Mean Platelet Volume 10.5 fL (9.4-12.3); Platelet Count 315 X10*3/uL (160-400); Red Blood Count 4.29 X10*6/uL (4.20-5.50); Red Cell Distribution Width 12.2 % (11.0-16.0); White Blood Count 6.9 X10*3/uL (4.8-10.8)
[2022-05-31 10:28] LABS: Alanine Aminotransferase 17 U/L (0-31); Albumin Level 4.3 g/dL (3.5-5.0); Alkaline Phosphatase 82 U/L (39-117); Anion Gap 14 (12-20); Aspartate Amino Transferase 19 U/L (5-31); Bilirubin Total 0.6 mg/dL (0.0-1.0); Blood Urea Nitrogen 14 mg/dL (9-16); Calcium 9.2 mg/dL (8.4-10.2); Carbon Dioxide 23 mmol/L (22-29); Chloride 105 mmol/L (96-108); Estimated Glomerular Filt Rate > 60; Glucose Fasting 103 mg/dL (60-99); Iron 58 mcg/dL (30-160); Percent Iron Saturation 16 % (15-50); Potassium 4.4 mmol/L (3.3-5.1); Sodium 138 mmol/L (135-145); Total Iron Binding Capacity 352 mcg/dL (228-428); Total Protein 7.7 g/dL (6.5-8.0); Unsaturated Iron Binding 294 ug/dL
[2022-05-31 10:50] LABS: TSH reflex Free T4 1.64 uIU/mL (0.32-4.0)
[2022-05-31 10:53] LABS: Appearance Urine Clear; Color Urine Yellow; Glucose Urine UA Negative (Negative); Leukocyte Esterase Urine Negative (Negative); Nitrite Urine Negative (Negative); Urine Blood Negative (Negative); Urine Ketones Negative (Negative); Urine Protein Negative (Neg-Trace)
[2022-05-31 11:38] LABS: Creatinine Urine 152.36 mg/dL; Microalbum/Creatinine Ratio Ur 6.5 ug/mg cr
== END 2022-05-31 09:17 | disposition home or self-care (01) ==
LOC: HO.LAB 09:16
PROVIDERS: Absent Provider Physician Assistant; PCP Physician Assistant; Visit Provider Internal Medicine
DX: R30.0 Dysuria (principal); I10 Essential (primary) hypertension; D50.9 Iron deficiency anemia, unspecified; D64.9 Anemia, unspecified
CPT/HCPCS: 36415; 80053; 81003; 82043; 83540; 84443; 85027

== ENCOUNTER 2022-06-11 17:46 | Outpatient (REF) | payer OTHER, SELFPAY ==
[2022-06-12 12:22] LABS: BV Int Neg Control Negative (Negative); BV Int Pos Control Positive (Positive)
== END 2022-06-11 17:47 | disposition home or self-care (01) ==
LOC: HO.LNP 17:46
PROVIDERS: Visit Provider Emergency Medicine
DX: N89.8 Other specified noninflammatory disorders of vagina (principal)
CPT/HCPCS: 87480; 87510; 87660

== ENCOUNTER 2022-07-10 11:06 | Outpatient (REF) | payer OTHER, SELFPAY ==
[2022-07-10 13:32] LABS: Appearance Urine Clear; Color Urine Yellow; Glucose Urine UA Negative (Negative); Leukocyte Esterase Urine Negative (Negative); Nitrite Urine Negative (Negative); Urine Blood Negative (Negative); Urine Ketones Negative (Negative); Urine Protein Negative (Neg-Trace)
== END 2022-07-10 11:07 | disposition home or self-care (01) ==
LOC: HO.LAB 11:06
PROVIDERS: PCP Physician Assistant; Visit Provider Physician Assistant
DX: R30.0 Dysuria (principal); I10 Essential (primary) hypertension
CPT/HCPCS: 81003

== ENCOUNTER → 2022-07-16 10:10 | Outpatient (BNVA) | payer OTHER, SELFPAY | PROVIDERS: PCP Physician Assistant; Referring Provider Physician Assistant; Visit Provider Nurse Practitioner | DX: K21.9 Gastro-esophageal reflux disease without esophagitis (principal); K59.00 Constipation, unspecified; J45.909 Unspecified asthma, uncomplicated; Z86.19 Personal history of other infectious and parasitic diseases | CPT/HCPCS: 99202 ==

== ENCOUNTER 2023-04-03 07:36 | Day surgery (SDC) | payer OTHER, SELFPAY ==
[2023-04-01 14:34] VITALS: BMI 28.9
--- NOTE | 2023-04-02 09:55 | P.CONAN_ITS ---
HPI - Anesthesia Eval Consult details Narrative: 52yo F for Colonoscopy [facility] Active Problems Active Problems: All Active Problems (Updated 04/01/23 @ 14:35 by Renata Daigle RN) Chronic left-sided headache (Acute) Trigeminal neuralgia of right side of face (Acute) GERD (gastroesophageal reflux disease) (Acute) History of pancreatitis (Acute) Hepatic steatosis (Acute) Frequent headaches (Acute) CHIDI (generalized anxiety disorder) (Acute) Migraines (Acute) Insomnia (Acute) Allergic rhinitis (Acute) Constipation (Acute) Dysuria (Acute) Otitis media (Acute) Frequency of micturition (Acute) Blood pressure elevated without history of HTN (Acute) Anemia (Acute) Hypertriglyceridemia (Acute) Lateral epicondylitis of right elbow (Acute) Insomnia (Acute) Sleep disturbance (Acute) Annual physical exam (Acute) Screening for diabetes mellitus (DM) (Acute) Screening for hypercholesterolemia (Acute) HTN (hypertension) (Acute) Ocular pain, right eye (Acute) Right-sided headache (Acute) Dermatitis (Acute) Hypersomnia (Acute) Spastic bladder (Acute) Osteoarthritis of left knee (Acute) Internal derangement of left knee (Acute) Colon cancer screening (Acute) Tear of medial meniscus of left knee (Acute) Tenosynovitis of left wrist (Acute) Annual physical exam (Acute) Colon cancer screening (Acute) Breast cancer screening (Acute) Obese (Acute) Asthma (Acute) HTN (hypertension) (Acute) Protein in urine (Acute) Pre-op examination (Acute) UTI (urinary tract infection) (Acute) Past Medical History Medical History (Updated 04/01/23 @ 14:35 by Renata Daigle RN) Anemia COPD (chronic obstructive pulmonary disease) GERD (gastroesophageal reflux disease) History of Clostridioides difficile colitis HTN (hypertension) Hypertriglyceridemia Osteoarthritis Pancreatitis Trigeminal neuralgia of right side of face UTI (urinary tract infection) Family History Family History Father Colon cancer Mother No problems noted. Sister No problems noted. Maternal Grandmother Esophageal cancer Family history of problems with anesthesia: No Surgical History Surgical History (Updated 04/01/23 @ 14:24 by Renata Daigle RN) H/O breast biopsy History of laparoscopic cholecystectomy Hx of arthroscopy of left knee History of Problems with Anesthesia: No Social History Social History Housing: Apartment Alcohol intake: current Alcohol intake frequency: holidays/special occasions o nly Alcohol type: wine Patient Tobacco Use Status: Never used Tobacco e-Cigarette/Vaping Use: Never Used Second Hand Smoke Exposure: No Substance Use Type: Marijuana Current occupational status: employed 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 Cognitive needs: No Hearing needs: Yes Vision needs: Yes (reading glasses) Meds Allergies Allergy/AdvReac Type Severity Reaction Status Date / Time diphtheria,pertussis Allergy Severe Swelling Verified 04/01/23 14:34 (acellular),te [From Adacel(Tdap Adolesn/Adult)(PF)] codeine Allergy Intermediate hives Verified 04/01/23 14:34 Influenza Virus Vaccines Allergy Intermediate arm Verified 04/01/23 14:34 swelling morphine Allergy Intermediate hives Verified 04/01/23 14:34 penicillin G [Penicillin G] Allergy Mild ITCH,HIVES Verified 09/18/22 12:20 doxepin AdvReac Intermediate urinary Verified 09/18/22 12:20 frequency lisinopril AdvReac Intermediate Cough Verified 09/18/22 12:20 amlodipine AdvReac Mild dizziness Verified 09/18/22 12:20 Home Medications Medication Instructions Recorded Confirmed Last Taken Type ascorbic acid (vitamin C) 500 mg 500 mg PO DAILY 07/16/22 04/01/23 Unknown History capsule cholecalciferol (vitamin D3) 25 25 mcg PO DAILY 07/16/22 04/01/23 Unknown History mcg (1,000 unit) capsule multivitamin 1 tab PO DAILY 07/16/22 04/01/23 Unknown History multivitamin with minerals 1 tab PO DAILY 07/16/22 09/18/22 Unknown History (Hair,Skin and Nails tablet) Exam Exam Date and Time: April 02, 2023 0955 Height,Weight and Vital Signs: Height 5 ft 1 in Weight 69.4 kg Assessment and Plan Assessment Anesthesia Assessment: Chart Reviewed Final Anesthetic Review Family History of Problems with Anesthesia: No History of Problems with Anesthesia: No
[2023-04-03 08:24] VITALS: BP 141/84; PULSE 65; RESP 18; TEMP 36.7; O2SAT 99
--- NOTE | 2023-04-03 08:31 | HO.ANESPROP2 ---
[facility] Active Problems Active Problems: All Active Problems (Updated 04/01/23 @ 14:35 by Renata Daigle RN) Chronic left-sided headache (Acute) Trigeminal neuralgia of right side of face (Acute) GERD (gastroesophageal reflux disease) (Acute) History of pancreatitis (Acute) Hepatic steatosis (Acute) Frequent headaches (Acute) CHIDI (generalized anxiety disorder) (Acute) Migraines (Acute) Insomnia (Acute) Allergic rhinitis (Acute) Constipation (Acute) Dysuria (Acute) Otitis media (Acute) Frequency of micturition (Acute) Blood pressure elevated without history of HTN (Acute) Anemia (Acute) Hypertriglyceridemia (Acute) Lateral epicondylitis of right elbow (Acute) Insomnia (Acute) Sleep disturbance (Acute) Annual physical exam (Acute) Screening for diabetes mellitus (DM) (Acute) Screening for hypercholesterolemia (Acute) HTN (hypertension) (Acute) Ocular pain, right eye (Acute) Right-sided headache (Acute) Dermatitis (Acute) Hypersomnia (Acute) Spastic bladder (Acute) Osteoarthritis of left knee (Acute) Internal derangement of left knee (Acute) Colon cancer screening (Acute) Tear of medial meniscus of left knee (Acute) Tenosynovitis of left wrist (Acute) Annual physical exam (Acute) Colon cancer screening (Acute) Breast cancer screening (Acute) Obese (Acute) Asthma (Acute) HTN (hypertension) (Acute) Protein in urine (Acute) Pre-op examination (Acute) UTI (urinary tract infection) (Acute) Past Medical History Medical History Anemia COPD (chronic obstructive pulmonary disease) GERD (gastroesophageal reflux disease) History of Clostridioides difficile colitis HTN (hypertension) Hypertriglyceridemia Osteoarthritis Pancreatitis Trigeminal neuralgia of right side of face UTI (urinary tract infection) Family History Family History Father Colon cancer Mother No problems noted. Sister No problems noted. Maternal Grandmother Esophageal cancer Family history of problems with anesthesia: No Surgical History Surgical History H/O breast biopsy History of laparoscopic cholecystectomy Hx of arthroscopy of left knee History of Problems with Anesthesia: No Social History Social History Housing: Apartment Alcohol intake: current Alcohol intake frequency: holidays/special occasions only Alcohol type: wine Patient Tobacco Use Status: Never used Tobacco e-Cigarette/Vaping Use: Never Used Second Hand Smoke Exposure: No Substance Use Type: Marijuana Are you DNR?: No Advance Directives: No Advance Directives Information Provided: Yes Nutrition Risks: No Nutritional Risk FDLMP: just finished Current occupational status: employed 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 Cognitive needs: No Hearing needs: Yes Vision needs: Yes (reading glasses) Meds Allergies Allergy/AdvReac Type Severity Reaction Status Date / Time diphtheria,pertussis Allergy Severe Swelling Verified 04/03/23 08:12 (acellular),te [From Adacel(Tdap Adolesn/Adult)(PF)] codeine Allergy Intermediate hives Verified 04/03/23 08:12 Influenza Virus Vaccines Allergy Intermediate arm Verified 04/03/23 08:12 swelling morphine Allergy Intermediate hives Verified 04/03/23 08:12 penicillin G [Penicillin G] Allergy Mild ITCH,HIVES Verified 04/03/23 08:12 doxepin AdvReac Intermediate urinary Verified 04/03/23 08:12 frequency lisinopril AdvReac Intermediate Cough Verified 04/03/23 08:12 amlodipine AdvReac Mild dizziness Verified 04/03/23 08:12 Active Medications: Current Medications Albuterol Sulfate (Albuterol Sulfate (0.083%) 2.5 Mg/3 Ml Vial.Neb) 2.5 mg INHALE ONCE PRN PRN Reason: Shortness of Breath/Wheezing Lactated Ringer's (Lr) 1,000 mls @ 100 mls/hr IVCONT .Q10H RUBÉN Last Admin: 04/03/23 08:21 Dose: 100 mls/hr Ondansetron HCl (Ondansetron Hcl 4 Mg/2 Ml Vial) 4 mg IVPUSH ONCE PRN PRN Reason: Nausea and Vomiting Ondansetron HCl (Ondansetron Hcl 4 Mg/2 Ml Vial) 4 mg IVPUSH ONCE PRN PRN Reason: Nausea and Vomiting Home Medications Medication Instructions Recorded Confirmed Last Taken Type ascorbic acid (vitamin C) 500 mg 500 mg PO DAILY 07/16/22 04/01/23 Unknown History capsule cholecalciferol (vitamin D3) 25 25 mcg PO DAILY 07/16/22 04/01/23 Unknown History mcg (1,000 unit) capsule multivitamin 1 tab PO DAILY 07/16/22 04/01/23 Unknown History multivitamin with minerals 1 tab PO DAILY 07/16/22 09/18/22 Unknown History (Hair,Skin and Nails tablet) Exam Exam Date and Time: April 03, 202331 Height,Weight and Vital Signs: Height 5 ft 1 in Weight 69.4 kg Last Vital Signs Temp 98.1 F 04/03/23 08:24 Pulse 65 04/03/23 08:24 Resp 18 04/03/23 08:24 BP 141/84 H 04/03/23 08:24 Pulse Ox 99 04/03/23 08:24 O2 Del Method Room Air 04/03/23 08:24 Pertinent Lab Results Pertinent Lab Results: Laboratory Tests 04/03/23 08:00 Urine Test NEGATIVE Airway Mallampati Class: I Partial: Upper Heart: rrr Lungs: clear Assessment and Plan Final Anesthetic Review Family History of Problems with Anesthesia: No History of Problems with Anesthesia: No NPO: Yes ASA Class: II Final Preanesthetic Review: No Changes in Pt Med Stat, Meds/Allgs Chart Reviewed, Consent Obtained/Reviewed and Anes Risks/Benef Reviewed Patient Risk: Intermediate Procedure Risk: Low Anesthetic Plan Anesthetic Plan: MAC: Disposition: Standard PACU
--- NOTE | 2023-04-03 08:36 | MHC.SHP ---
Pre-Procedural Eval Section A Date of Service: 04/03/23 The patient is an INPATIENT: No The History & Physical has been completed within 30 days and I have reviewed it.: No Section B Chief Complaint: Encounter for screening for malignant neoplasm Relevant Family History (Specify if Yes): Yes Relevant Social History: None Present Medications: see Short Stay Collaborative assessment Medical History: Significant History (Asthma Allergic rhinitis Hypertension Obesity High cholesterol Migraines History of pancreatitis Hepatic steatosis GERD Trigeminal neuralgia) History of Previous Operations: Relevant previous surgery/procedure and date(s) (H/O breast biopsy History of laparoscopic cholecystectomy) Allergies: Allergies Allergy/AdvReac Type Severity Reaction Status Date / Time diphtheria,pertussis Allergy Severe Swelling Verified 04/03/23 08:12 (acellular),te [From Adacel(Tdap Adolesn/Adult)(PF)] codeine Allergy Intermediate hives Verified 04/03/23 08:12 Influenza Virus Vaccines Allergy Intermediate arm Verified 04/03/23 08:12 swelling morphine Allergy Intermediate hives Verified 04/03/23 08:12 penicillin G [Penicillin G] Allergy Mild ITCH,HIVES Verified 04/03/23 08:12 doxepin AdvReac Intermediate urinary Verified 04/03/23 08:12 frequency lisinopril AdvReac Intermediate Cough Verified 04/03/23 08:12 amlodipine AdvReac Mild dizziness Verified 04/03/23 08:12 Review of Systems Sugical H&P ROS: Negative: Constitution, Cardiovascular, Respiratory and Gastrointestinal Exam Surgical H&P Exam: Normal: Heart, Normal: Lungs, Normal: Extremities and Normal: Abdomen Plan Diagnosis/Plan: Unchanged I have reviewed the history and physical and performed a pertinent physical examination on my patient. No changes have occurred unless specified. Time Spent With Patient Time: Total time managing care of this patient today ____ minutes.
--- NOTE | 2023-04-03 09:18 | W.PM.OPN ---
Operative Note Operative Note Date of Service: 04/03/23 Narrative: COLONOSCOPY TILL CECUM Pre-op diagnosis: colon cancer screening, family history of colon cancer ( Dad in his 90's) Post-op diagnosis:? diverticulosis, hemorrhoids Endoscopist:? Lars Casanova MD Anesthesia:?MAC Consent: Indications for the procedure and potential complications of bleeding, perforation, reaction to medications and missed diagnosis were discussed with the patient and informed consent was obtained. Instrument: Olympus PCF H 190 L variable stiffness pediatric colonoscope Monitoring: Vital signs and clinical assessment, intermittent blood pressure monitoring, continuous EKG monitoring, Pulse oximetry and Carbon Dioxide monitoring were done throughout the procedure. Please see anesthesia flowsheet. Colon withdrawl time was 14 minutes. Procedure: The patient was placed in the left lateral decubitis position and pre-procedure medications were administered. After a digital rectal examination of the ano-rectum, the video colonoscope was inserted into the rectum and advanced through the colon to the cecum. The colonoscope was slowly withdrawn in a retrograde panoramic fashion and the colon mucosa was carefully examined including a retroflexed view of the rectum. Findings and interventions are described below. Procedure Difficulty: Without difficulty Findings: Terminal Ileum: Not evaluated Cecum: Normal Ascending Colon: Normal Transverse Colon: Normal Descending Colon: Normal Sigmoid Colon: Mild diverticulosis Rectum: Normal Ano-rectum: Moderate internal hemorrhoids Colon preparation: Good after some irrigation Impression and Post Procedure Diagnosis: Colonoscopy Findings: No polyps were detected Mild diverticulosis seen in the sigmoid colon Moderate hemorrhoids on retroflexed exam. Plan: Patient has an appointment on 04/15/23 in the GI Clinic with Anette Cabrales NP. Repeat Colonoscopy in 10 years. Above findings were reviewed with the patient and diverticulosis handouts was given in the discharge area
[2023-04-03 10:00] VITALS: BP 125/79; PULSE 73; RESP 20; TEMP 36.9; O2SAT 100
[2023-04-03 10:15] VITALS: BP 120/81; PULSE 61; RESP 20; TEMP 36.8; O2SAT 99
== END 2023-04-03 10:40 | disposition home or self-care (01) ==
PROVIDERS: PCP Physician Assistant; Visit Provider Internal Medicine Gastroenterology
PROC: 0DJD8ZZ Inspection of Lower Intestinal Tract, Via Natural or Artificial Opening Endoscopic (ICD-10-PCS; CPT 45378; principal; 2023-04-03 09:20)
DX: Z12.11 Encounter for screening for malignant neoplasm of colon (principal); Z80.0 Family history of malignant neoplasm of digestive organs; K57.30 Diverticulosis of large intestine without perforation or abscess without bleeding; K64.8 Other hemorrhoids; K76.0 Fatty (change of) liver, not elsewhere classified; K21.9 Gastro-esophageal reflux disease without esophagitis; I10 Essential (primary) hypertension; E78.00 Pure hypercholesterolemia, unspecified; J45.909 Unspecified asthma, uncomplicated; G50.0 Trigeminal neuralgia; Z87.19 Personal history of other diseases of the digestive system; Z79.899 Other long term (current) drug therapy; Z88.0 Allergy status to penicillin; Z88.7 Allergy status to serum and vaccine; Z88.8 Allergy status to other drugs, medicaments and biological substances
CPT/HCPCS: 45378; 81025

== ENCOUNTER 2023-05-06 10:51 | Outpatient (REF) | payer OTHER, SELFPAY ==
--- NOTE | ~2023-05-06 | MM_ITS ---
EXAMINATION: MM SCREENING DIGITAL BREAST TOMOSYNTHESIS, BILATERAL CLINICAL INFORMATION: Screening. Asymptomatic. The lifetime risk of breast cancer based on the Tyrer-Cuzick Model is 4.5 COMPARISON: Mammography: This study is compared with prior exams dating back to 2017. TECHNIQUE: Digital breast tomosynthesis is performed in both the craniocaudal and mediolateral oblique views along with computer-aided detection (CAD). Synthesized 2D images are generated from the tomosynthesis. FINDINGS: There are scattered areas of fibroglandular density (ACR BI-RADS breast composition Category b). There are no significant masses, abnormal calcifications, or other abnormalities. There is a tissue marker in the right breast from prior benign percutaneous biopsy. MM/MM tomosynthesis screening BI IMPRESSION: No mammographic evidence of malignancy. ASSESSMENT: BI-RADS BI-RADS 2 - Benign Findings RECOMMENDATION: Routine annual mammography screening. 1 year F/U This examination should not preclude the clinical evaluation of a suspicious palpable abnormality. This patient's information was entered into a reminder system with a target due date for their next mammogram.
== END 2023-05-06 10:52 | disposition home or self-care (01) ==
LOC: HO.MAMMO 10:51
PROVIDERS: Visit Provider Physician Assistant
DX: Z12.31 Encounter for screening mammogram for malignant neoplasm of breast (principal)
CPT/HCPCS: 77063; 77067

== ENCOUNTER → 2023-05-06 11:15 | Outpatient (BNV) | payer OTHER, SELFPAY | PROVIDERS: Visit Provider Radiology Diagnostic Radiology | DX: Z12.31 Encounter for screening mammogram for malignant neoplasm of breast (principal) | CPT/HCPCS: 77063; 77067 ==

== ENCOUNTER 2023-05-21 10:12 | Outpatient (REF) | payer OTHER, SELFPAY ==
[2023-05-21 10:45] LABS: Hematocrit 37.7 % (37.0-47.0); Hemoglobin 11.7 g/dl (12.0-16.0); Mean Corpuscular Hemoglobin 27.4 pg (27.0-33.0); Mean Corpuscular Volume 88.3 fL (80.0-98.0); Mean Platelet Volume 10.5 fL (9.4-12.3); Platelet Count 362 X10*3/uL (160-400); Red Blood Count 4.27 X10*6/uL (4.20-5.50); Red Cell Distribution Width 11.8 % (11.0-16.0); White Blood Count 6.4 X10*3/uL (4.8-10.8)
[2023-05-21 11:42] LABS: Alanine Aminotransferase 12 U/L (0-31); Albumin Level 4.5 g/dL (3.5-5.0); Alkaline Phosphatase 71 U/L (39-117); Anion Gap 11 (12-20); Aspartate Amino Transferase 16 U/L (5-31); Bilirubin Total 0.4 mg/dL (0.0-1.0); Blood Urea Nitrogen 12 mg/dL (9-16); Calcium 9.8 mg/dL (8.4-10.2); Carbon Dioxide 27 mmol/L (22-29); Chloride 105 mmol/L (96-108); Cholesterol 246 mg/dL (<200); Estimated Glomerular Filt Rate > 60; Glucose Fasting 96 mg/dL (60-99); HDL Cholesterol 71 mg/dL (>40); LDL Cholesterol Calculated 146 mg/dL (<100); Potassium 4.5 mmol/L (3.3-5.1); Sodium 138 mmol/L (135-145); Triglycerides 145 mg/dL (<150)
[2023-05-21 11:57] LABS: TSH reflex Free T4 1.45 uIU/mL (0.32-4.0)
[2023-05-21 13:15] LABS: Creatinine Urine 125.09 mg/dL; Microalbum/Creatinine Ratio Ur 4.7 ug/mg cr (<30)
== END 2023-05-21 10:13 | disposition home or self-care (01) ==
LOC: HO.LAB 10:12
PROVIDERS: PCP Physician Assistant; Visit Provider Physician Assistant
DX: I10 Essential (primary) hypertension (principal)
CPT/HCPCS: 36415; 80053; 80061; 82043; 84443; 85027

== ENCOUNTER 2023-07-11 11:58 | Emergency (ER) | payer OTHER, SELFPAY ==
--- NOTE | ~2023-07-11 | XR_ITS ---
EXAMINATION: XR CHEST CLINICAL INFORMATION: Chest pain COMPARISON: May 2009 TECHNIQUE: 2 views of the chest were obtained. FINDINGS: No significant abnormality is noted involving the heart, lungs, mediastinum, bony thorax or soft tissues. XR/XR chest 2V IMPRESSION: Unremarkable examination, without interval change.
[2023-07-11 12:42] VITALS: BP 152/93; PULSE 91; RESP 16; TEMP 36.4; O2SAT 97; BMI 27.6
--- NOTE | 2023-07-11 12:42 | ED_ITS ---
HPI - Headache General Chief Complaint: Neck Pain/Injury Stated Complaint: head and neck pain Time Seen by Provider: 07/11/23 13:08 Source: patient Mode of arrival: ambulatory Limitations: no limitations History of Present Illness HPI Narrative: Patient is a 52-year-old female with history of COPD, hypertension, osteoarthritis, anemia, pancreatitis, GERD, trigeminal neuralgia of right-side of face presenting to the emergency department with primary complaint of left lateral neck pain for 5 days. States over the past several days pain has begun to radiate up to the occipital area of her head and down into her left shoulder and chest area. She also complains of left lower extremity pain/cramping which she feels is unrelated to her neck pain, states symptoms began at separate times. She denies any shortness of breath or palpitations. Denies any fevers. 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 Denies any rashes or tick bites. Reports that she received her shingles vaccine yesterday but symptoms began prior to that. Reports headache has been a gradual onset, denies worst headache of life. Denies any visual changes. Denies any dizziness, lightheadedness, syncope. MD elicited complaint: other (Neck pain) Onset (ago): day(s) Onset description: gradually Location: left and occipital Severity: severe Quality & Timing: aching and squeezing Exacerbating factors: movement of head/neck Relieving factors: nothing Context: occurred at rest Associated symptoms: none Treatments prior to arrival: ibuprofen Related Data Home Medications Medication Instructions Recorded Confirmed ascorbic acid (vitamin C) 500 mg 500 mg PO DAILY 07/16/22 04/01/23 capsule cholecalciferol (vitamin D3) 25 25 mcg PO DAILY 07/16/22 04/01/23 mcg (1,000 unit) capsule multivitamin 1 tab PO DAILY 07/16/22 04/01/23 multivitamin with minerals 1 tab PO DAILY 07/16/22 09/18/22 (Hair,Skin and Nails tablet) Previous Rx's Medication Instructions Recorded triamcinolone acetonide 0.1 % 1 appl topical DAILY 7 days #30 06/18/21 topical cream grams loratadine 10 mg tablet 10 mg PO DAILY 90 days #90 tabs 09/18/22 losartan 25 mg tablet 25 mg PO DAILY 90 days #90 tabs 09/18/22 omeprazole 20 mg capsule,delayed 20 mg PO DAILY 30 days #30 caps 09/18/22 release doxepin 25 mg capsule 25 mg PO BEDTIME 30 days #30 caps 09/23/22 fluticasone propionate 50 1 spray intranasal DAILY #16 mL 01/02/23 mcg/actuation nasal spray,suspension albuterol sulfate 90 mcg/actuation 1 puff inhalation QID PRN for 02/24/23 aerosol inhaler (Ventolin HFA) wheezing #18 ea ibuprofen 600 mg tablet 600 mg PO Q8H PRN pain 30 days #90 04/02/23 tabs trazodone 100 mg tablet 200 mg (2 x 100 mg) PO DAILY 90 04/29/23 days #180 tabs cyclobenzaprine 5 mg tablet 5 mg PO TID PRN muscle spasm #10 07/11/23 tabs lidocaine 5 % topical patch 1 patch topical DAILY #15 ea 07/11/23 Allergies Allergy/AdvReac Type Severity Reaction Status Date / Time diphtheria,pertussis Allergy Severe Swelling Verified 04/03/23 08:12 (acellular),te [From Adacel(Tdap Adolesn/Adult)(PF)] codeine Allergy Intermediate hives Verified 04/03/23 08:12 Influenza Virus Vaccines Allergy Intermediate arm Verified 04/03/23 08:12 swelling morphine Allergy Intermediate hives Verified 04/03/23 08:12 penicillin G [Penicillin G] Allergy Mild ITCH,HIVES Verified 04/03/23 08:12 doxepin AdvReac Intermediate urinary Verified 04/03/23 08:12 frequency lisinopril AdvReac Intermediate Cough Verified 04/03/23 08:12 amlodipine AdvReac Mild dizziness Verified 04/03/23 08:12 Review of Systems 2 Review of Systems: As per HPI. Yes all other systems are reviewed and are negative Constitutional: Constitutional: Reports as per HPI [facility] Past Medical History Medical History (Updated 07/11/23 @ 14:53 by Ailyn Mosley NP) COPD (chronic obstructive pulmonary disease) Osteoarthritis HTN (hypertension) Hypertriglyceridemia Anemia Pancreatitis GERD (gastroesophageal reflux disease) Trigeminal neuralgia of right side of face UTI (urinary tract infection) History of Clostridioides difficile colitis Surgical History Hx of arthroscopy of left knee H/O breast biopsy History of laparoscopic cholecystectomy Family History Family History Father Colon cancer Mother No problems noted. Sister No problems noted. 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 Blood pressure elevated. Heart rate normal. Respiratory rate normal. Temperature normal. Oxygen saturation normal. Const: General: cooperative, healthy appearing and no acute distress O rientation/consciousness: oriented to person, oriented to place, oriented to time and patient oriented x3 Limitations: no limitations HEENT: Head: Yes normal to inspection, Yes No palpable skull fracture present, Yes normocephalic, Yes atraumatic, No scalp tenderness and No Temporal artery tenderness present Ears: external ears normal General nose exam: Normal external nose present Face and sinus: Yes face symmetric Mouth: oropharynx normal and moist mucous membranes Throat: Yes uvula midline Eyes: Pupils: Equal, round and reactive pupils present Neck: Neck: Yes normal visual inspection, Yes full ROM, Yes no lymphadenopathy, Yes no meningeal signs, Yes trachea midline, Yes supple, No anterior neck swelling and Yes tender (left lateral) Lymphatic: no lymphadenopathy noted Chest: Chest palpation & inspection: normal inspection of the chest and normal palpation of entire chest wall Resp: Effort & Inspection: normal respiratory effort and able to speak in complete sentences Auscultation: clear to auscultation bilaterally Cardio: Rate: regular rate Rhythm: regular rhythm Heart sounds: S1 normal heart sound present and S2 normal heart sound present GI: Palpation (GI): Soft to palpation and nontender Auscultation: n ormoactive bowel sounds : General: Yes no CVA tenderness Back/Spine/Pelvis: Back: no CVA tenderness Skin: General skin exam: elasticity normal and turgor normal Neuro: General: oriented to person, oriented to place, oriented to time, patient oriented x3, moves all extremities, no meningeal signs, no focal motor deficits and CN's II-XI intact bilaterally Cranial nerves: Yes Equal, round and reactive pupils present Cognition (Neuro): normal cognition Extrem: General: Yes full ROM, Yes no pedal edema and Yes no calf tenderness Left upper extremity: shoulder/upper arm (Localized erythema to left upper arm an area of recent IM injection) Left lower extremity: normal to inspection, normal capillary refill, lower leg Details: normal to inspection and no edema; no erythema, no tenderness, no localized swelling, no palpable cords, no ecchymosis and no unusual warmth and foot Details: vascular exam Details: dorsalis pedis pulse present and posterior tibial pulse present Psych: Mental Status: mental status grossly normal Affect: normal affect Thought process: Normal thought process present Course Course Course Narrative: This is a rapid medical exam. Deferred additional HPI, ROS, PE to primary provider. 52 yo female with no known medical history here with complaints of left sided neck pain with radiation to the left side of the face/left head and into left chest x 5 days. Worsened with head movement. Also c/o left knee pain with radiation down left leg since yesterday. No injury or trauma. Will obtain labs, EKG, CXR VSS Medications Administered Discontinued Medications Generic Name Dose Route Start Last Admin Trade Name Freq PRN Reason Stop Dose Admin Acetaminophen 975 mg 07/11/23 14:53 07/11/23 14:59 Acetaminophen 325 Mg Tablet PO 07/11/23 14:54 975 mg ONCE ONE Administration Ketorolac Tromethamine 30 mg 07/11/23 14:53 07/11/23 14:59 Ketorolac Tromethamine 30 Mg/Ml Vial IM 07/11/23 14:54 30 mg ONCE ONE Administration Medical Decision Making Medical Decision Making MDM Narrative: Patient is a 52-year-old female with history of COPD, hypertension, osteoarthritis, anemia, pancreatitis, GERD, trigeminal neuralgia of right-side of face presenting to the emergency department with primary complaint of left lateral neck pain for 5 days. On exam patient is awake, A+Ox3, BP elevated, VS otherwise WNL, afebrile, normal neurological exam without focal deficits, physical exam findings as above. Given reported symptoms and physical exam findings, initial differential includes cervical strain, cervical radiculopathy, spondylosis, osteoarthritis, tick borne illness. Low concern for ACS, will obtain EKG and troponin. Labs notable for no leukocytosis, mild anemia consistent with baseline, no electrolyte abnormalities, negative troponin. EKG shows normal sinus rhythm. X-ray chest unremarkable. My interpretation is in agreement with the radiologist's interpretation. Feel neck symptoms are likely related to cervical muscle strain causing a tension headache. Do not suspect DVT based on Wells score. Feel lower leg pain is likely a muscle strain. Upon reassessment patient noted to be hypertensive. She states that she is no longer taking BP medications as her PCP told her she did not need to be on anything anymore. Discussed with patient that she should follow-up with PCP and advised them that her blood pressure readings were elevated while she was at the ED today. Will medicate for pain and reassess. Patient reports decreased pain after medications and BP has improved. Feel patient is stable for discharge home at this time. Tick panel is pending, patient will be contacted with any positive results. Will send prescriptions for cyclobenzaprine and lidocaine patches to pharmacy. Instructed patient follow-up with primary care provider this week. Return precautions discussed at bedside. Patient verbalized understanding of agreement with plan. Wells' Criteria for DVT from [email or web address] on 07/11/2023 All calculations should be rechecked by clinician prior to use RESULT SUMMARY: -2 points Low risk group for DVT. ?Unlikely? according to Wells? DVT studies. INPUTS: Active cancer ?> 0 = No Bedridden recently >3 days or major surgery within 12 weeks ?> 0 = No Calf swelling >3 cm compared to the other leg ?> 0 = No Collateral (nonvaricose) superficial veins present ?> 0 = No Entire leg swollen ?> 0 = No Localized tenderness along the deep venous system ?> 0 = No Pitting edema, confined to symptomatic leg ?> 0 = No Paralysis, paresis, or recent plaster immobilization of the lower extremity ?> 0 = No Previously documented DVT ?> 0 = No Alternative diagnosis to DVT as likely or more likely ?> -2 = Yes Differential Diagnosis Differential Diagnoses: The differential diagnosis associated with the presentation includes As per [facility]. Lab Data [facility] Lab Attestation statement: I reviewed the patient's lab results. As per [facility]. 07/11/23 13:03 07/11/23 13:03 Labs: Lab Results 07/11/23 07/11/23 Range/Units 13:02 13:03 WBC 6.9 (4.8-10.8) X10*3/uL RBC 4.25 (4.20-5.50) X10*6/uL Hgb 11.6 L (12.0-16.0) g/dl Hct 36.3 L (37.0-47.0) % MCV 85.4 (80.0-98.0) fL MCH 27.3 (27.0-33.0) pg MCHC 32.0 (31.0-35.0) g/dl RDW 11.4 (11.0-16.0) % Plt Count 293 (160-400) X10*3/uL MPV 10.6 (9.4-12.3) fL Immature Gran % (Auto) 0.3 (0.0-0.4) % Neut % (Auto) 69.1 (45-73) % Lymph % (Auto) 19.0 L (20-40) % Potter % (Auto) 10.8 (2-11) % Eos % (Auto) 0.4 (0-4) % Baso % (Auto) 0.4 (0-2) % Lymph # (Auto) 1.3 (1.2-4.9) X10*3/uL Potter # (Auto) 0.7 (0.1-1.2) X10*3/uL Eos # (Auto) 0.0 (0.0-0.4) X10*3/uL Baso # (Auto) 0.0 (0.0-0.2) X10*3/uL Abs Immat Gran (auto) 0.02 (0.00-0.03) X10*3/uL Absolute Neuts (auto) 4.7 (2.0-8.3) x10*3/uL Absolute Nucleated RBC 0.000 (0.0-0.012) X10*3/uL Nucleated RBC % (auto) 0.0 (0.0-0.2) /100WBC Sodium 140 (135-145) mmol/L Potassium 4.3 (3.3-5.1) mmol/L Chloride 107 (96-108) mmol/L Carbon Dioxide 24 (22-29) mmol/L Anion Gap 13 (12-20) BUN 11 (9-16) mg/dL Creatinine 0.77 (0.5-1.4) mg/dL Estim Creat Clear Calc 75.2 Estimated GFR > 60 Random Glucose 100 (60-115) mg/dL Calcium 9.7 (8.4-10.2) mg/dL Total Bilirubin 0.7 (0.0-1.0) mg/dL Direct Bilirubin 0.2 (0.0-0.5) mg/dL AST 17 (5-31) U/L ALT 13 (0-31) U/L Alkaline Phosphatase 73 (39-117) U/L Troponin I High Sens < 2.7 (<3.5-17.0) ng/L Total Protein 7.8 (6.5-8.0) g/dL Albumin 4.3 (3.5-5.0) g/dL Independent Interpretation I performed an independent interpretation of an: EKG and Plain X-Ray Interpretation: EKG shows normal sinus rhythm, rate 69 beats per minute, normal [place] interval, no evidence of STEMI. No acute abnormality on chest x-ray Radiology Impression Discussion of test interpretation with radiology: I have reviewed the radiologist's reading. Radiologist Impression: XR/XR chest 2V IMPRESSION: Unremarkable examination, without interval change. External Record Review External record reviewed: Inpatient record, Office record and Outpatient record Prescription Management I considered prescription management with: Pain Medication and Other Discharge Plan Discharge Clinical Impression: Cervical muscle strain Patient Disposition: Home, Self-Care Instructions: Cervical Strain (DC) Additional Instructions: You were evaluated in the emergency department today for neck pain. Your symptoms are likely related to a cervical muscle strain. Your EKG and blood work were reassuring. You were tested for tick-borne illnesses today and you will be contacted with any positive results. Please follow-up with her primary care provider this week and discuss your elevated blood pressure readings in the emergency department today. Return to the emergency department if you develop worsening chest pain, shortness of breath, fever 100.4F or greater, new weakness, numbness, or tingling in your arms or legs or any other concerning symptoms. Prescriptions: New cyclobenzaprine 5 mg tablet 5 mg PO TID PRN (Reason: muscle spasm) Qty: 10 0RF lidocaine 5 % adhesive patch,medicated 1 patch topical DAILY Qty: 15 0RF Rx Instructions: leave on most painful area for up to 12 hrs No Action doxepin 25 mg capsule 25 mg PO BEDTIME 30 Days Qty: 30 0RF fluticasone propionate 50 mcg/actuation spray,suspension 1 spray intranasal DAILY Qty: 16 3RF albuterol sulfate [Ventolin HFA] 90 mcg/actuation HFA aerosol inhaler 1 puff inhalation QID PRN (Reason: for wheezing) Qty: 18 2RF ibuprofen 600 mg tablet 600 mg PO Q8H PRN (Reason: pain) 30 Days Qty: 90 2RF trazodone 100 mg tablet 200 mg PO DAILY 90 Days Qty: 180 1RF triamcinolone acetonide 0.1 % cream 1 appl topical DAILY 7 Days Qty: 30 0RF loratadine 10 mg tablet 10 mg PO DAILY 90 Days Qty: 90 2RF losartan 25 mg tablet 25 mg PO DAILY 90 Days Qty: 90 2RF omeprazole 20 mg capsule,delayed release(DR/EC) 20 mg PO DAILY 30 Days Qty: 30 3RF multivitamin Tablet 1 tab PO DAILY Hair,Skin and Nails Tablet 1 tab PO DAILY cholecalciferol (vitamin D3) 25 mcg (1,000 unit) capsule 25 mcg PO DAILY ascorbic acid (vitamin C) 500 mg capsule 500 mg PO DAILY
--- NOTE | 2023-07-11 12:45 | ECG_ITS ---
Test Reason : LEFT SIDE CP Blood Pressure : / mmHG Vent. Rate : 069 BPM Atrial Rate : 069 BPM P-R Int : 146 ms QRS Dur : 072 ms QT Int : 406 ms P-R-T Axes : 031 044 007 degrees QTc Int : 435 ms Normal sinus rhythm RSR' or QR pattern in V1 suggests right ventricular conduction delay Nonspecific T wave abnormality Abnormal ECG No previous ECGs available Referred By: Veronica Peñaloza Electronically Signed By:FATUMA BARBA MD
--- NOTE | 2023-07-11 12:50 | PC.NURSE ---
While being assessed by SANTIAGO in triage the patient added she is also having chest tightness. she also reported getting her SHingle shot yesterday, redness localized to left deltoid
[2023-07-11 13:06] LABS: MANUAL DIFF FLAG NO
[2023-07-11 13:17] LABS: Basophils Percent Auto 0.4 % (0-2); Eosinophils Percent Auto 0.4 % (0-4); Hematocrit 36.3 % (37.0-47.0); Hemoglobin 11.6 g/dl (12.0-16.0); Imm Gran Abs Auto 0.02 X10*3/uL (0.00-0.03); Imm Gran Pct Auto 0.3 % (0.0-0.4); Lymphocytes Absolute Auto 1.3 X10*3/uL (1.2-4.9); Mean Corpuscular Hemoglobin 27.3 pg (27.0-33.0); Mean Corpuscular Volume 85.4 fL (80.0-98.0); Mean Platelet Volume 10.6 fL (9.4-12.3); Monocytes Absolute Auto 0.7 X10*3/uL (0.1-1.2); Monocytes Percent Auto 10.8 % (2-11); Neutrophils Absolute Auto 4.7 x10*3/uL (2.0-8.3); Neutrophils Percent Auto 69.1 % (45-73); Platelet Count 293 X10*3/uL (160-400); Red Blood Count 4.25 X10*6/uL (4.20-5.50); Red Cell Distribution Width 11.4 % (11.0-16.0); White Blood Count 6.9 X10*3/uL (4.8-10.8)
[2023-07-11 13:24] LABS: Alanine Aminotransferase 13 U/L (0-31); Albumin Level 4.3 g/dL (3.5-5.0); Alkaline Phosphatase 73 U/L (39-117); Anion Gap 13 (12-20); Aspartate Amino Transferase 17 U/L (5-31); Bilirubin Direct 0.2 mg/dL (0.0-0.5); Bilirubin Total 0.7 mg/dL (0.0-1.0); Blood Urea Nitrogen 11 mg/dL (9-16); Calcium 9.7 mg/dL (8.4-10.2); Carbon Dioxide 24 mmol/L (22-29); Chloride 107 mmol/L (96-108); Creatinine Clr Calc Pharmacy 75.2; Estimated Glomerular Filt Rate > 60; Glucose Random 100 mg/dL (60-115); Potassium 4.3 mmol/L (3.3-5.1); Sodium 140 mmol/L (135-145); Total Protein 7.8 g/dL (6.5-8.0)
[2023-07-11 13:35] LABS: Troponin-I High Sensitivity < 2.7 ng/L (<3.5-17.0)
[2023-07-11 14:50] VITALS: BP 190/101; PULSE 88; RESP 18; TEMP 36.8; O2SAT 100
[2023-07-11] MEDS: Ketorolac Tromethamine 30 MG/ML VIAL IM (14:59)
[2023-07-11] MEDS: Acetaminophen 325 MG TABLET 975 MG PO (14:59)
[2023-07-11 15:26] VITALS: BP 146/82; PULSE 70
[2023-07-14 14:38] LABS: A. Phagocytphilium DNA,RT-PCR NOT DETECTED (NOT DETECTED); Babesia Microti DNA, RT-PCR NOT DETECTED (NOT DETECTED); Borrelia Miyamotoi,DNA RT-PCR NOT DETECTED (NOT DETECTED); E.Chaffeensis DNA RT-PCR NOT DETECTED (NOT DETECTED); Lyme(Borrelia ssp)DNA RT-PCR NOT DETECTED (NOT DETECTED)
== END 2023-07-11 15:46 | disposition home or self-care (01) ==
PROVIDERS: Nurse Practitioner Family; Registered Nurse Emergency; Emergency Provider Emergency Medicine; PCP Physician Assistant
DX: S16.1XXA Strain of muscle, fascia and tendon at neck level, initial encounter (principal); X58.XXXA Exposure to other specified factors, initial encounter; Y93.9 Activity, unspecified; Y92.9 Unspecified place or not applicable; Y99.9 Unspecified external cause status; R07.9 Chest pain, unspecified; J44.9 Chronic obstructive pulmonary disease, unspecified; I10 Essential (primary) hypertension; M54.2 Cervicalgia; G50.0 Trigeminal neuralgia
CPT/HCPCS: 36415; 71046; 80048; 80076; 84484; 85025; 87468; 87469; 87478; 87484; 87798; 93005; 96372; 99284; J1885

== ENCOUNTER 2023-07-22 10:29 | Outpatient (AMB) | payer OTHER, SELFPAY ==
--- NOTE | 2023-07-22 10:38 | A.OFFPC_ITS ---
Vital Signs 07/22/23 10:41 Height 5 ft 1 in Weight 151 lb 8 oz BMI 28.6 BP 120/70 Blood Pressure Location Lt brachial Position Sitting Pulse 78 Pulse Source Pulse Oximeter Pulse Oximetry (%) 94 Oxygen Delivery Method Room Air Intake [place] [facility] [place] pain NEEDS PHQ9+THRIVE Intake Note: Patient is here to follow-up after a visit the emergency department at [facility] [place]. Epic Radiant Analyst Required: No Instructor Of Sociology: Not Required per policy Accompanied by: Self / Same As Patient Allergies diphtheria,pertussis (acellular),te [From Adacel(Tdap Adolesn/Adult)(PF)] Allergy (Severe, Verified 07/22/23 13:33) Swelling codeine Allergy (Intermediate, Verified 07/22/23 13:33) hives Influenza Virus Vaccines Allergy (Intermediate, Verified 07/22/23 13:33) arm swelling morphine Allergy (Intermediate, Verified 07/22/23 13:33) hives penicillin G [Penicillin G] Allergy (Mild, Verified 07/22/23 13:33) ITCH,HIVES doxepin Adverse Reaction (Intermediate, Verified 07/22/23 13:33) urinary frequency lisinopril Adverse Reaction (Intermediate, Verified 07/22/23 13:33) Cough amlodipine Adverse Reaction (Mild, Verified 07/22/23 13:33) dizziness Medication List - Last Reconciled 07/22/23 by Peter Singh MD albuterol sulfate 90 mcg/actuation (Ventolin HFA) 1 puff inhalation QID PRN ascorbic acid (vitamin C) 500 mg PO DAILY cholecalciferol (vitamin D3) 25 mcg PO DAILY cyclobenzaprine 5 mg PO TID PRN doxepin 25 mg PO BEDTIME 30 days ibuprofen 600 mg PO Q8H PRN 30 days loratadine 10 mg PO DAILY 90 days losartan 25 mg PO DAILY 90 days multivitamin 1 tab PO DAILY multivitamin with minerals (Hair,Skin and Nails tablet) 1 tab PO DAILY omeprazole 20 mg PO DAILY 30 days trazodone 200 mg (2 x 100 mg) PO DAILY 90 days triamcinolone acetonide 0.1% 1 appl topical DAILY 7 days Tobacco use date assessed: 07/22/23 Dental Screening Dental Screen Date: 07/22/23 Did you have a dental visit in the last 12 months?: Yes Did you have a dental problem in the last 6 months where you did not have access to dental care?: No Was dental information given to patient?: Patient has dentist [facility], 07/11,head+neck pain NEEDS PHQ9+BEBO [facility] Details 52-year-old female presents [facility] a sick visit. Patient was seen in the emergency room for neck pain on July 11. Patient was found to have elevated blood pressures and was started on a medication. She seems to be tolerating the medication well. In addition she got a muscle relaxant. Pain symptoms in her neck have subsided. Patient presents here for a follow-up on her elevated blood pressure. Reporting no symptoms of headache. Able to function and do all activities of daily living. [facility] Medical History (Updated 07/12/23 @ 00:01 by Fang Barragan) COPD (chronic obstructive pulmonary disease) Osteoarthritis HTN (hypertension) Hypertriglyceridemia Anemia Pancreatitis GERD (gastroesophageal reflux disease) Trigeminal neuralgia of right side of face UTI (urinary tract infection) History of Clostridioides difficile colitis Surgical History Hx of arthroscopy of left knee H/O breast biopsy History of laparoscopic cholecystectomy Family History Father Colon cancer Mother No problems noted. Sister No problems noted. 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 1. Little interest or pleasure in doing things: not at all 2. Feeling down, depressed, or hopeless: several days 3. Trouble falling or staying asleep, or sleeping too much: nearly every day 4. Feeling tired or having little energy: not at all 5. Poor appetite or overeating: not at all 6. Feeling bad about yourself - or that you are a failure or have let yourself or your family down: not at all 7. Trouble concentrating on things, such as reading the newspaper or watching television: not at all 8. Moving or speaking so slowly that other people could have noticed. Or the opposite - being so fidgety or restless that you have been moving around a lot more than usual: not at all 9. Thoughts that you would be better off or of hurting yourself in some way: not at all Total score: 4 Source: Developed by Drs. Russ Armstrong, Chantelle Kent, Jason Lilly and colleagues, with an educational billy from [employer]. Thrive Questionnaire Date Thrive assessed: 07/22/23 I am a: Patient What is your living situation today?: I have a steady place to live Within the past 12 months, did the food you bought not last and you didn't have the money to get more?: Never true Within the past 12 months, did you worry whether your food would run out before you got money to buy more?: Never true Do you have trouble paying for medicines?: No Do you have trouble getting transportation to medical appointments?: No Do you have trouble paying your heating and electricity bill?: No Do you have trouble taking care of your child, family member or friend?: No Do you have trouble with day-to-day activities such as bathing, preparing meals, shopping, managing finances, etc.?: No Are you currently unemployed and looking for a job?: No Are you interested in more education?: No Currently or been in a relationship where the following occur: no concerns reported AUDIT C Alcohol Use Questionnaire (AUDIT-C) 1. How often do you have a drink containing alcohol?: Never Total Score: 0 CHIDI-7 AMB Questionnaire CHIDI-7 Date CHIDI - 7 assessed: 07/22/23 Feeling nervous, anxious, or on edge: 0 = Not at all Not being able to stop or control worryin = Not at all Worrying too much about different things: 0 = Not at all Trouble relaxin = Not at all Being so restless that it is hard to sit still: 0 = Not at all Becoming easily annoyed or irritable: 0 = Not at all Feeling afraid as if something awful might happen: 0 = Not at all Total CHIDI-7 score (0-4 normal; 5-9 mild; 10-14 moderate; 15-21 severe): 0 Source: Developed by Drs. Russ Armstrong, Chantelle Kent, Jason Lilly and colleagues, with an educational billy from [employer]. Physical exam (Primary Care) Vital Signs: Last Vital Signs Pulse 78 07/22/23 10:41 BP 120/70 07/22/23 10:41 Pulse Ox 94 07/22/23 10:41 Oxygen Delivery Method Room Air 07/22/23 10:41 BMI result Body Mass Index 28.6 Tobacco/Smoking Status: Tobacco use Status Tobacco use date assessed 07/22/23 07/22/23 10:51 Patient Tobacco Use Status Never used Tobacco 07/22/23 10:51 e-Cigarette/Vaping Use Never Used 07/22/23 10:51 PHQ-9: PHQ-9 Score PHQ-9: Total score 4 07/22/23 10:51 Thrive Assessment: Date of Thrive Assessment Date Thrive assessed 07/22/23 07/22/23 10:51 Currently or been in a relationship where the following occur: no concerns reported Const General: cooperative and healthy appearing Nutritional Appearance: well nourished Orientation/consciousness: patient oriented x3 Limitations: no limitations HENMT Head: Yes normal to inspection Eyes General: appearance normal, both eyes and all related structures Neck Other: Neck: No spinal tenderness. Full range of motion. Neck: Yes normal visual inspection Chest Chest palpation & inspection: normal palpation of entire chest wall Resp Effort & Inspection: normal respiratory effort Neuro General: patient oriented x3 Assessment and Plan Assessment & Plan (1) HTN (hypertension): Code(s): I10 - Essential (primary) hypertension Qualifiers: Hypertension type: primary hypertension Qualified Code(s): I10 - Essential (primary) hypertension Plan: Continue the ARB. Blood pressure is in range. Continue current medications. Medications: Refilled cyclobenzaprine 5 mg PO TID PRN 10 tabs 0RF muscle spasm ibuprofen 600 mg PO Q8H 30 days PRN 90 tabs 2RF pain M77.11 - Lateral epicondylitis, right elbow loratadine 10 mg PO DAILY 90 days 90 tabs 2RF J30.9 - Allergic rhinitis, unspecified losartan 25 mg PO DAILY 90 days 90 tabs 2RF I10 - Essential (primary) hypertension trazodone 200 mg (2 x 100 mg) PO DAILY 90 days 180 tabs 1RF F51.01 - Primary insomnia doxepin 25 mg PO BEDTIME 30 days 30 caps 0RF F41.1 - Generalized anxiety disorder omeprazole 20 mg PO DAILY 30 days 30 caps 3RF K21.9 - Gastro-esophageal reflux disease without esophagitis triamcinolone acetonide 0.1% 1 appl topical DAILY 7 days 30 grams 0RF L30.9 - Dermatitis, unspecified Coding Level of Care Code Est Pt Level 3 (61060) Diagnoses Primary hypertension I10 Hypertension type: primary hypertension
[2023-07-22 10:41] VITALS: BP 120/70; PULSE 78; O2SAT 94; BMI 28.6
== END 2023-07-22 11:18 | disposition home or self-care (01) ==
PROVIDERS: PCP Physician Assistant; Visit Provider Internal Medicine
DX: I10 Essential (primary) hypertension (principal)
CPT/HCPCS: 99213

== ENCOUNTER 2023-10-26 11:20 | Outpatient (AMB) | payer OTHER, SELFPAY ==
[2023-10-26 11:39] VITALS: BP 122/80; PULSE 68; O2SAT 98; BMI 29.2
--- NOTE | 2023-10-26 11:39 | A.OFFPC_ITS ---
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 Accompanied by: Self / Same As Patient Allergies diphtheria,pertussis (acellular),te [From Adacel(Tdap Adolesn/Adult)(PF)] Allergy (Severe, Verified 10/26/23 12:12) Swelling codeine Allergy (Intermediate, Verified 10/26/23 12:12) hives Influenza Virus Vaccines Allergy (Intermediate, Verified 10/26/23 12:12) arm swelling morphine Allergy (Intermediate, Verified 10/26/23 12:12) hives penicillin G [Penicillin G] Allergy (Mild, Verified 10/26/23 12:12) ITCH,HIVES doxepin Adverse Reaction (Intermediate, Verified 10/26/23 12:12) urinary frequency lisinopril Adverse Reaction (Intermediate, Verified 10/26/23 12:12) Cough amlodipine Adverse Reaction (Mild, Verified 10/26/23 12:12) dizziness Medication List - Last Reconciled 10/26/23 by Angel Heard PA-C albuterol sulfate 90 mcg/actuation (Ventolin HFA) 1 puff inhalation QID PRN ascorbic acid (vitamin C) 500 mg PO DAILY cholecalciferol (vitamin D3) 25 mcg PO DAILY cyclobenzaprine 5 mg PO TID PRN doxepin 25 mg PO BEDTIME 30 days ibuprofen 600 mg PO Q8H PRN 30 days loratadine 10 mg PO DAILY 90 days losartan 25 mg PO DAILY 90 days multivitamin 1 tab PO DAILY multivitamin with minerals (Hair,Skin and Nails tablet) 1 tab PO DAILY omeprazole 20 mg PO DAILY 30 days trazodone 200 mg (2 x 100 mg) PO DAILY 90 days triamcinolone acetonide 0.1% 1 appl topical DAILY 7 days Tobacco use date assessed: 10/26/23 Dental Screening Dental Screen Date: 10/26/23 Did you have a dental visit in the last 12 months?: Yes Did you have a dental problem in the last 6 months where you did not have access to dental care?: No Was dental information given to patient?: Patient has dentist HPI PE HPI Details Patient is a 53-year-old female here today for a annual physical ? Patient has a past medical history significant for hypertension, migraines, spastic bladder, osteoarthritis. Concern--> reports over the past few weeks she has been having hot and cold flashes. She does report she is still having menstruations though have been more heavy as of lately. Likely in perimenopause. Has no follow-up with a tailer in. . .. Insomnia: Patient continues on trazodone 200 mg at night before bed with good effect.? She would like to continue this current dose.? Unfortunately still having trouble sleeping even with high dose of trazodone. Will add on magnesium before bed to help sleep. Hypertension:? Blood pressure acceptable today in office.? She had a cough with lisinopril and was transition to losartan. She reports she has not been taking losartan for some unclear reason. Will refill ? Otherwise denies any headaches, chest discomfort, vision issues of shortness of breath. ? promises to consistently take her amlodipine for better blood pressure control.? .. Borderline high cholesterol: Most recent lipid panel done October of 2019 to showing borderline high cholesterol. Patient has been working on lifestyle modifications to reduce her cholesterol. Will recheck fasting total cholesterol to assure normal? colorectal cancer screening: normal colonoscopy in 2022 repeat in 10 years vaccines: today with COVID vaccine, up-to-date with tetanus, needs flu vaccine mammograms: Mammogram done in April of 2023 BI-RADS 1 Laboratory Tests 05/31/22 06/11/22 05/21/23 09:30 13:30 10:24 Hgb Cholesterol 246 H TSH 1.64 Candie species DN A Negative Gardnerella DNA Pr obe Negative Trichomonas DNA Pr obe Negative 07/11/23 13:03 Hgb 11.6 L Cholesterol TSH Candie species DN A Gardnerella DNA Pr obe Trichomonas DNA Pr obe PFSH Medical History (Updated 10/26/23 @ 14:40 by Angel Heard PA-C) COPD (chronic obstructive pulmonary disease) Osteoarthritis HTN (hypertension) Hypertriglyceridemia Anemia Pancreatitis GERD (gastroesophageal reflux disease) Trigeminal neuralgia of right side of face UTI (urinary tract infection) History of Clostridioides difficile colitis Surgical History Hx of arthroscopy of left knee H/O breast biopsy History of laparoscopic cholecystectomy Family History Father Colon cancer Mother No problems noted. Sister No problems noted. 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 1. Little interest or pleasure in doing things: not at all 2. Feeling down, depressed, or hopeless: several days 3. Trouble falling or staying asleep, or sleeping too much: nearly every day 4. Feeling tired or having little energy: not at all 5. Poor appetite or overeating: not at all 6. Feeling bad about yourself - or that you are a failure or have let yourself or your family down: not at all 7. Trouble concentrating on things, such as reading the newspaper or watching television: not at all 8. Moving or speaking so slowly that other people could have noticed. Or the opposite - being so fidgety or restless that you have been moving around a lot more than usual: not at all 9. Thoughts that you would be better off or of hurting yourself in some way: not at all Total score: 4 Depression Screening Interpretation: Negative Depression Screening Done: Yes [id number] - PHQ-9 Billing: Yes Source: Developed by Drs. Russ Armstrong, Chantelle Kent, Jason Lilly and colleagues, with an educational billy from [employer]. Thrive Questionnaire Date Thrive assessed: 10/26/23 I am a: Patient What is your living situation today?: I have a steady place to live Within the past 12 months, did the food you bought not last and you didn't have the money to get more?: Never true Within the past 12 months, did you worry whether your food would run out before you got money to buy more?: Never true Do you have trouble paying for medicines?: No Do you have trouble getting transportation to medical appointments?: No Do you have trouble paying your heating and electricity bill?: No Do you have trouble taking care of your child, family member or friend?: No Do you have trouble with day-to-day activities such as bathing, preparing meals, shopping, managing finances, etc.?: No Are you currently unemployed and looking for a job?: No Are you interested in more education?: No Please select the resources that you would like help with: None Currently or been in a relationship where the following occur: no concerns reported THRIVE Score: 0 AUDIT C Alcohol Use Questionnaire (AUDIT-C) 1. How often do you have a drink containing alcohol?: Never Total Score: 0 CHIDI-7 AMB Questionnaire CHIDI-7 Date CHIDI - 7 assessed: 10/26/23 Feeling nervous, anxious, or on edge: 0 = Not at all Not being able to stop or control worryin = Not at all Worrying too much about different things: 0 = Not at all Trouble relaxin = Not at all Being so restless that it is hard to sit still: 0 = Not at all Becoming easily annoyed or irritable: 0 = Not at all Feeling afraid as if something awful might happen: 0 = Not at all Total CHIDI-7 score (0-4 normal; 5-9 mild; 10-14 moderate; 15-21 severe): 0 Source: Developed by Drs. Russ Armstrong, Chantelle Kent, Jason Lilly and colleagues, with an educational billy from [employer]. CHIDI-7 Assessment Billing CHIDI-7 Assessment Tool: CHIDI-7 Assessment 94601 Review of Systems Const Denies body aches, Denies chills, Denies excessive sweating, Denies fatigue, Denies fever(s) and Denies headache(s) Eyes Denies blurry vision ENT Denies dysphagia, Denies vertigo, Denies dizziness, Denies headache(s), Denies hearing loss and Denies tinnitus Card Denies chest pain, Denies chest pain with activity, Denies syncope, Denies irregular heart rhythm and Denies dyspnea Resp Denies chest congestion, Denies cough, Denies hemoptysis, Denies dyspnea and Denies wheezing GI Denies abdominal pain, Denies melena, Denies hematochezia, Denies coffee ground emesis, Denies dysphagia, Denies diarrhea, Denies nausea and Denies vomiting Denies urinary frequency, Denies dysuria, Denies urinary hesitancy and Denies urinary urgency Musc Denies arthralgias, Denies limited range of motion, Denies muscle cramps and Denies muscle weakness Skin/Breast Denies rash and Denies skin ulcer Neuro Denies Abnormal speech present, Denies confusion, Denies vertigo, Denies dizziness, Denies syncope, Denies headache(s), Denies memory loss and Denies seizure-like activity Psych Denies anxiety, Denies confusion, Denies depression, Denies memory loss, Denies panic attacks and Denies paranoia Endo Denies excessive sweating, Denies fatigue, Denies flushing, Denies polydipsia and Denies polyuria Aller/Immun Denies wheezing Physical exam (Primary Care) Vital Signs: Last Vital Signs Pulse 68 10/26/23 11:39 BP 122/80 10/26/23 11:39 Pulse Ox 98 10/26/23 11:39 Oxygen Delivery Method Room Air 10/26/23 11:39 BMI result Body Mass Index 29.2 Tobacco/Smoking Status: Tobacco use Status Tobacco use date assessed 10/26/23 10/26/23 11:45 Patient Tobacco Use Status Never used Tobacco 10/26/23 11:45 e-Cigarette/Vaping Use Never Used 10/26/23 11:45 PHQ-9: PHQ-9 Score PHQ-9: Total score 4 10/26/23 12:31 Depression Screening Interpretation: Negative Thrive Assessment: Date of Thrive Assessment Date Thrive assessed 10/26/23 10/26/23 11:45 Currently or been in a relationship where the following occur: no concerns reported Const General: cooperative, comfortable, no acute distress, alert and awake; No c onfusion Orientation/consciousness: oriented to person, oriented to place, patient oriented x3 and No confusion HENMT Head: Yes normocephalic Ears: external ears normal and TM's normal bilaterally Face and sinus: No sinus tenderness Mouth: Normal oral and palatal mucosa present and tongue normal Teeth and gingiva: dentition normal and gingiva normal Throat: Yes posterior oropharynx normal, Yes tonsils normal and Yes uvula midline Eyes Conjunctivae: conjunctivae normal Sclerae: sclerae normal Pupils: Equal, round and reactive pupils present EOM: EOMs intact bilaterally Direct Ophthalmoscopy: No no photophobia Neck Neck: Yes no lymphadenopathy, No tender and Yes no JVD Thyroid: Thyroid normal Carotids: no bruits Chest Chest palpation & inspection: no tenderness Resp Effort & Inspection: normal respiratory effort, no audible wheezes, not labored and no stridor Auscultation: no crackles, no rales, no rhonchi and no wheezes Cardio Jugular venous distension: no JVD Rate: regular rate, not bradycardic and not tachycardic Rhythm: regular rhythm Bruits: no carotid bruits Peripheral pulses: Peripheral pulses 2+ throughout GI Inspection: Yes normal to inspection, No abdominal wall ecchymosis and No visible herniation Palpation (GI): Soft to palpation, nontender, no guarding, not rigid and No hepatosplenomegaly present Auscultation: normoactive bowel sounds General: Yes no CVA tenderness Back/Spine/Pelvis Back: no CVA tenderness and No back tenderness Cervical Spine: cervical ROM normal Thoracic/Lumbar Spine: thoracic and lumbar spine normal to inspection, straight leg raise negative bilaterally, No thoraco-lumbar ROM limited and No lumbar spinal tenderness Skin Lesions: no lesions Rashes: no rashes Wounds: no wounds Neuro General: oriented to person, oriented to place, patient oriented x3, CN's II-XI intact bilaterally and No confusion Cranial nerves: Yes Equal, round and reactive pupils present and Yes Normal accommodation reflex present Cognition (Neuro): normal cognition Speech: No Abnormal speech present Gait exam (Neuro): Normal gait present Motor exam (neuro): 5/5 motor strength present throughout Extrem Right upper extremity: full ROM; no cyanosis Left upper extremity: full ROM; no cyanosis Right lower extremity: no edema Left lower extremity: no edema Psych Appearance: grossly normal Mental Status: mental status grossly normal Affect: normal affect Attitude: cooperative Thought process: Normal thought process present Office Procedures Flu Questionnaire Does the patient have a severe egg allergy?: No Does the patient have severe life threatening allergies?: No Does the patient have a fever or illness today?: No Has the patient ever had Guillain-Denver Syndrome?: No Has the patient ever had any past reaction to a flu shot?: No Immunizations flu vacc [id number] 6mos up(PF) 60 mcg(15 mcgx4)/0.5 mL IM syringe Performing Provider: Angel Heard PA-C [facility] Administered by: ASHELY Montano on 10/26/23 12:31 Dose Route Admin Location Dispensed Lot Number Expiration Date NDC Digester 0.5 mL IM Left Deltoid 0.5 mL [id number] 03/27/24 [id number] [employer] VIS Given Date VIS Provided VIS Publication Date 10/26/23 Single Vaccine 21 Eligibility Eligibility Date Funding Source Not [facility] Eligible 10/26/23 Private Assessment and Plan Assessment & Plan (1) Annual physical exam: Code(s): Z00.00 - Encounter for general adult medical examination without abnormal findings (2) HTN (hypertension): Code(s): I10 - Essential (primary) hypertension Qualifiers: Hypertension type: primary hypertension Qualified Code(s): I10 - Essential (primary) hypertension Plan: Blood pressure acceptable today in office. Will continue losartan 25 mg. 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 Advised to monitor blood pressure at home. Goal below 140/90 (3) Asthma: Code(s): J45.909 - Unspecified asthma, uncomplicated Qualifiers: Asthma complication type: uncomplicated Asthma persistence: inter mittent Asthma severity: mild Qualified Code(s): J45.20 - Mild intermittent asthma, uncomplicated Plan: Patient reports his asthma has been fairly well controlled with only p.r.n. use of her albuterol inhaler. Otherwise denies any nighttime awakenings with asthma symptoms. (4) Hypertriglyceridemia: Code(s): E78.1 - Pure hyperglyceridemia Plan: Patient's most recent lipid panel showing elevated total cholesterol and triglycerides. She will continue working on lifestyle modifications to reduce her high cholesterol foods in her diet. (5) Insomnia: Code(s): G47.00 - Insomnia, unspecified Qualifiers: Insomnia type: unspecified Qualified Code(s): G47.00 - Insomnia, unspecified Plan: Patient reports trazodone to 200 mg at night before bed which has not been working well for sleep as of late. Will add on magnesium 250mg. Will like to continue this dose of trazodone. Of note has been on Ambien, doxepin though has side effects, . Melatonin was not effective (6) RLQ abdominal pain: Code(s): R10.31 - Right lower quadrant pain Plan: Reports having right lower quadrant pain as of late. Advised on x-ray or ultrasound of abdomen though she declines at this time would like to wait to get labs. (7) Cervical cancer screening: Code(s): Z12.4 - Encounter for screening for malignant neoplasm of cervix Plan: Would like Pap screening Orders: Orders Microalbumin, Random (w Creat) Today I10 - Essential (primary) hypertension Comprehensive [place]. Panel Fast Today I10 - Essential (primary) hypertension Lipid Panel Today E78.1 - Pure hyperglyceridemia Influenza [id number] Immunization Today Z23 - Encounter for immunization Referrals [facility] Referral Z12.4 - Encounter for screening for malignant neoplasm of cervix Medications: New magnesium oxide 250 mg PO BEDTIME 30 tabs 4RF 30 days F51.01 - Primary insomnia, R51.9 - Headache, unspecified Refilled losartan 25 mg PO DAILY 90 tabs 2RF 90 days I10 - Essential (primary) hypertension Coding Level of Care Code Est Pt Prev Care 40-64y(80702) Diagnoses Annual physical exam Z00.00 Primary hypertension I10 Hypertension type: primary hypertension Mild intermittent asthma without complication J45.20 Asthma complication type: uncomplicated Asthma persistence: intermittent Asthma severity: mild Hypertriglyceridemia E78.1 Insomnia, unspecified type G47.00 Insomnia type: unspecified RLQ abdominal pain R10.31 Cervical cancer screening Z12.4 Additional Codes CHIDI-7 Assessment Billing - CHIDI-7 Assessment Tool: CHIDI-7 Assessment [id number] ([id number])
== END 2023-10-26 12:40 | disposition home or self-care (01) ==
PROVIDERS: PCP Physician Assistant; Visit Provider Physician Assistant
DX: Z00.00 Encounter for general adult medical examination without abnormal findings (principal); I10 Essential (primary) hypertension; J45.20 Mild intermittent asthma, uncomplicated; Z23 Encounter for immunization; E78.1 Pure hyperglyceridemia; G47.00 Insomnia, unspecified; R10.31 Right lower quadrant pain; Z12.4 Encounter for screening for malignant neoplasm of cervix
CPT/HCPCS: 90471; 90686; 99396

== ENCOUNTER 2023-11-05 10:24 | Outpatient (REF) | payer OTHER, SELFPAY ==
[2023-11-05 12:10] LABS: Creatinine Urine 139.84 mg/dL; Microalbum/Creatinine Ratio Ur 11.4 ug/mg cr (<30)
[2023-11-05 12:13] LABS: Alanine Aminotransferase 13 U/L (0-31); Albumin Level 4.6 g/dL (3.5-5.0); Alkaline Phosphatase 71 U/L (39-117); Anion Gap 12 (12-20); Aspartate Amino Transferase 14 U/L (5-31); Bilirubin Total 0.3 mg/dL (0.0-1.0); Blood Urea Nitrogen 14 mg/dL (9-16); Calcium 9.9 mg/dL (8.4-10.2); Carbon Dioxide 27 mmol/L (22-29); Chloride 104 mmol/L (96-108); Cholesterol 250 mg/dL (<200); Estimated Glomerular Filt Rate > 60; Glucose Fasting 94 mg/dL (60-99); HDL Cholesterol 72 mg/dL (>40); LDL Cholesterol Calculated 131 mg/dL (<100); Potassium 3.9 mmol/L (3.3-5.1); Sodium 139 mmol/L (135-145); Total Protein 8.2 g/dL (6.5-8.0); Triglycerides 239 mg/dL (<150)
== END 2023-11-05 10:25 | disposition home or self-care (01) ==
LOC: HO.LAB 10:24
PROVIDERS: PCP Physician Assistant; Visit Provider Physician Assistant
DX: I10 Essential (primary) hypertension (principal); E78.1 Pure hyperglyceridemia
CPT/HCPCS: 36415; 80053; 80061; 82043; 82570

== ENCOUNTER 2024-01-01 09:34 | Emergency (ER) | payer OTHER, SELFPAY ==
--- NOTE | ~2024-01-01 | XR_ITS ---
EXAMINATION: XR CHEST CLINICAL INFORMATION: Cough. Shortness of breath. COMPARISON: Previous chest x-ray June 2023 TECHNIQUE: 2 views of the chest were obtained. FINDINGS: No significant abnormality is noted involving the heart, lungs, mediastinum, bony thorax or soft tissues. XR/XR chest 2V IMPRESSION: Unremarkable examination.
[2024-01-01 10:55] VITALS: BP 176/86; PULSE 85; RESP 18; TEMP 37; O2SAT 96; BMI 28.0
[2024-01-01 12:15] LABS: Influenza A PCR NEGATIVE (Negative); Influenza B PCR NEGATIVE (Negative); Resp Syncy Virus RNA Qual PCR NEGATIVE (Negative); SARS COV2 PCR INHOUSE NEGATIVE (Negative)
--- NOTE | 2024-01-01 12:44 | ED.URI ---
HPI - URI/Sore Throat General Chief Complaint: Upper Respiratory Symptoms Stated Complaint: Not Feeling Well Time Seen by Provider: 01/01/24 12:44 Source: patient Mode of arrival: ambulatory Limitations: no limitations History of Present Illness HPI Narrative: Patient is a 53-year-old female who presents emergency department for evaluation of a productive cough for 5 days, progressive shortness of breath, bilateral ear pain. In addition she is also reports an episode of white /clear vaginal discharge 3 days ago when using the bathroom. Denies any further episodes. Denies any itching or burning sensation. Denies urinary frequency/ urgency /hesitancy. Denies fevers, chills, headache, dizziness, neck pain, neck stiffness, chest pain, cough, sore throat, nausea, vomiting, abdominal pain, numbness or tingling of the extremities. Related Data Home Medications ?Medication ?Instructions ?Recorded ?Confirmed ascorbic acid (vitamin C) 500 mg 500 mg PO DAILY 07/16/22 10/26/23 capsule cholecalciferol (vitamin D3) 25 25 mcg PO DAILY 07/16/22 10/26/23 mcg (1,000 unit) capsule multivitamin 1 tab PO DAILY 07/16/22 10/26/23 multivitamin with minerals 1 tab PO DAILY 07/16/22 10/26/23 (Hair,Skin and Nails tablet) Previous Rx's ?Medication ?Instructions ?Recorded albuterol sulfate 90 mcg/actuation 1 puff inhalation QID PRN for 02/24/23 aerosol inhaler (Ventolin HFA) wheezing #18 ea cyclobenzaprine 5 mg tablet 5 mg PO TID PRN muscle spasm #10 07/22/23 tabs ibuprofen 600 mg tablet 600 mg PO Q8H PRN pain 30 days #90 07/22/23 tabs loratadine 10 mg tablet 10 mg PO DAILY 90 days #90 tabs 07/22/23 triamcinolone acetonide 0.1 % 1 appl topical DAILY 7 days #30 07/22/23 topical cream grams omeprazole 20 mg capsule,delayed 20 mg PO DAILY 30 days #30 caps 09/14/23 release losartan 25 mg tablet 25 mg PO DAILY 90 days #90 tabs 10/26/23 magnesium oxide 250 mg PO BEDTIME 30 days #30 tabs 10/26/23 trazodone 100 mg tablet 200 mg (2 x 100 mg) PO DAILY 90 11/02/23 days #180 tabs azithromycin 250 mg tablet See Rx Instructions PO .COMPLEX #6 01/01/24 tabs Allergies Allergy/AdvReac Type Severity Reaction Status Date / Time diphtheria,pertussis Allergy Severe Swelling Verified 01/01/24 11:00 (acellular),te [From Adacel(Tdap Adolesn/Adult)(PF)] codeine Allergy Intermediate hives Verified 01/01/24 11:00 Influenza Virus Vaccines Allergy Intermediate arm Verified 01/01/24 11:00 swelling morphine Allergy Intermediate hives Verified 01/01/24 11:00 penicillin G [Penicillin G] Allergy Mild ITCH,HIVES Verified 01/01/24 11:00 doxepin AdvReac Intermediate urinary Verified 01/01/24 11:00 frequency lisinopril AdvReac Intermediate Cough Verified 01/01/24 11:00 amlodipine AdvReac Mild dizziness Verified 01/01/24 11:00 Review of Systems Review of Systems: Yes all other systems are reviewed and are negative PMFSH Past Medical History Attestation statement: The following information was validated with the patient. Source: old records reviewed Medical History COPD (chronic obstructive pulmonary disease) Osteoarthritis HTN (hypertension) Hypertriglyceridemia Anemia Pancreatitis GERD (gastroesophageal reflux disease) Trigeminal neuralgia of right side of face UTI (urinary tract infection) History of Clostridioides difficile colitis Surgical History Hx of arthroscopy of left knee H/O breast biopsy History of laparoscopic cholecystectomy Family History Family History Father Colon cancer Mother No problems noted. Sister No problems noted. 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 No acute distress.?Normal affect. Eyes: Pupils equal, round and reactive to light.? ENT: TM On the left is erythematous and bulging with opacity, TM on the right is mildly erythematous, intact bilaterally. Pharynx mildly erythematous, no exudates. Uvula midline. No trismus. No drooling. Neck: Normal inspection.? Neck supple.??No cervical adenopathy CVS: Heart sounds normal. Normal heart rate and rhythm.? Pulses normal.?? Respiratory: No respiratory distress.? Lung sounds clear to auscultation bilaterally?? Abdomen: Soft and non-tender. Normoactive bowel sounds. Skin: Skin warm and dry.? Normal skin color.? ? Extremities: No lower extremity edema.? Neuro: Moves all extremities spontaneously. Sensation intact bilaterally. No motor deficits. Ambulates with normal steady gait. Medical Decision Making Medical Decision Making MDM Narrative: Patient is a 53-year-old female past medical history of COPD, osteoporosis, hypertension, GERD, urinary tract infection, presenting for evaluation of upper respiratory symptoms and a single episode of vaginal discharge as per HPI. COVID-19 /influenza/RSV testing is negative. Examination is consistent with acute otitis media on the left, notable productive cough at the time of evaluation. At this time history and physical exam not consistent with ACS/PE. CXR was obtained For further evaluation, no acute cardiopulmonary abnormality, with increased cough, concern for COPD exacerbation. given allergy to penicillin; hives, will treat with azithromycin to cover acute otitis media and COPD exacerbation. Well-appearing, nontoxic, afebrile, no tachycardia or tachypnea/hypoxia. Speaking clear full sentences, ambulatory with steady gait. single episode of abnormal discharge, no further symptoms, urinalysis reveals no evidence of infection. Discussed conservative treatment including rest, hydration, Tylenol/ibuprofen as needed for fever and body aches, saline nasal spray, humidifier, [id number] cold medication. Advised to follow-up with primary care provider as needed, discussed reasons to return back to the emergency department. All questions were answered. Patient discharged home in stable condition. Differential Diagnosis Differential Diagnoses: The differential diagnosis associated with the presentation includes ( See narrative above) Admission/Observation Consideration of admission/observation: Escalation of care including admission/observation considered ( see narrative above) Lab Data MDM Lab Attestation statement: I reviewed the patient's lab results. ( see narrative above) Labs: Lab Results 01/01/24 01/01/24 Range/Units 11:17 14:53 Urine Color Yellow Urine Appearance Clear Urine pH 6.0 (5.0-9.0) Ur Specific [place] 1.010 (1.005-1.025) Urine Protein Negative (Neg-Trace) mg/dL Urine Glucose (UA) Negative (Negative) mg/dL Urine Ketones Negative (Negative) mg/dL Urine Blood Negative (Negative) Urine Nitrite Negative (Negative) Ur Leukocyte Esterase Small (1+) H (Negative) Urine RBC 0-2 (0-2) /HPF Urine WBC 0-5 (0-5) /HPF Ur Squamous Epith Cells 3-5 (0-2) /HPF Urine Bacteria None Seen (None Seen) Hyaline Casts 0-2 (0-2) /LPF Influenza Type A (PCR) NEGATIVE (Negative) Influenza Type B (PCR) NEGATIVE (Negative) RSV RNA Qual (PCR) NEGATIVE (Negative) SARS-CoV-2 RNA (RT-PCR) NEGATIVE (Negative) Independent Interpretation I performed an independent interpretation of an: Plain X-Ray ( no pneumonia) Radiology Impression Discussion of test interpretation with radiology: I have reviewed the radiologist's reading. Radiologist Impression: XR/XR chest 2V IMPRESSION: Unremarkable examination. External Record Review External record reviewed: Outpatient record Prescription Management I considered prescription management with: Pain Medication ( acetaminophen/ibuprofen) and Antibiotic Discharge Plan Discharge Clinical Impression: Acute otitis media, COPD exacerbation Patient Disposition: Home, Self-Care Instructions: Ear Infection (ED), COPD (Chronic Obstructive Pulmonary Disease) (ED) Additional Instructions: complete the entire course of antibiotics as prescribed. Contact your primary care provider to arrange for a follow-up visit. Return back to emergency department any new or worsening symptoms or concerns. Prescriptions: New azithromycin 250 mg tablet See Rx Instructions .ROUTE .COMPLEX Qty: 6 0RF Rx Instructions: For 250 mg dose pack: take 500 mg today (day 1), then 250 mg for 4 days (days 2-5) No Action albuterol sulfate [Ventolin HFA] 90 mcg/actuation HFA aerosol inhaler 1 puff inhalation QID PRN (Reason: for wheezing) Qty: 18 2RF omeprazole 20 mg capsule,delayed release(DR/EC) 20 mg PO DAILY 30 Days Qty: 30 3RF trazodone 100 mg tablet 200 mg PO DAILY 90 Days Qty: 180 1RF cyclobenzaprine 5 mg tablet 5 mg PO TID PRN (Reason: muscle spasm) Qty: 10 0RF ibuprofen 600 mg tablet 600 mg PO Q8H PRN (Reason: pain) 30 Days Qty: 90 2RF loratadine 10 mg tablet 10 mg PO DAILY 90 Days Qty: 90 2RF triamcinolone acetonide 0.1 % cream 1 appl topical DAILY 7 Days Qty: 30 0RF losartan 25 mg tablet 25 mg PO DAILY 90 Days Qty: 90 2RF magnesium oxide 250 mg magnesium tablet 250 mg PO BEDTIME 30 Days Qty: 30 4RF multivitamin Tablet 1 tab PO DAILY Hair,Skin and Nails Tablet 1 tab PO DAILY cholecalciferol (vitamin D3) 25 mcg (1,000 unit) capsule 25 mcg PO DAILY ascorbic acid (vitamin C) 500 mg capsule 500 mg PO DAILY Referrals: Angel Heard PA-C [Primary Care Provider] - Stand Alone Forms: Work/School Release Interventions: ED Discharge Assessment Last Done: 01/01/24 15:17 Discharge Date/Time: 01/01/24 15:18 Print Language: Lithuanian
[2024-01-01 15:00] LABS: Appearance Urine Clear; Color Urine Yellow; Glucose Urine UA Negative (Negative); Leukocyte Esterase Urine Small (1+) (Negative); Nitrite Urine Negative (Negative); UMIC TRIGGER UACC YES; Urine Blood Negative (Negative); Urine Ketones Negative (Negative); Urine Protein Negative (Neg-Trace)
[2024-01-01 15:13] LABS: Bacteria Urine None Seen (None Seen); Hyaline Casts Urine 0-2 /LPF (0-2); RBC Urine 0-2 /HPF (0-2); UACC Culture Trigger YES; WBC Urine 0-5 /HPF (0-5)
[2024-01-01 15:17] VITALS: BP 140/83; PULSE 101; RESP 20; TEMP 36.8; O2SAT 96
== END 2024-01-01 15:18 | disposition home or self-care (01) ==
PROVIDERS: Nurse Practitioner Family; Physician Assistant Medical; Emergency Provider Emergency Medicine; PCP Physician Assistant
DX: J44.1 Chronic obstructive pulmonary disease with (acute) exacerbation (principal); H66.92 Otitis media, unspecified, left ear; I10 Essential (primary) hypertension; Z88.0 Allergy status to penicillin; Z88.5 Allergy status to narcotic agent; Z88.8 Allergy status to other drugs, medicaments and biological substances
CPT/HCPCS: 0241U; 71046; 81001; 81003; 87086; 87147; 99282; 99283

== ENCOUNTER 2024-02-01 10:48 | Outpatient (AMB) | payer OTHER, SELFPAY ==
--- NOTE | 2024-02-01 11:13 | A.OFFPC_ITS ---
Vital Signs 02/01/24 11:15 Height 5 ft 1 in Weight 155 lb 2 oz BMI 29.3 BP 140/62 H Blood Pressure Location Lt brachial Position Sitting Pulse 68 Pulse Source Pulse Oximeter Pulse Oximetry (%) 97 Oxygen Delivery Method Room Air Intake Visit Reasons: f/u HTN/ LABS Intake Note: Patient is here to follow up on HTN, Lab result. 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 Accompanied by: Self / Same As Patient Allergies diphtheria,pertussis (acellular),te [From Adacel(Tdap Adolesn/Adult)(PF)] Allergy (Severe, Verified 02/01/24 11:40) Swelling codeine Allergy (Intermediate, Verified 02/01/24 11:40) hives Influenza Virus Vaccines Allergy (Intermediate, Verified 02/01/24 11:40) arm swelling morphine Allergy (Intermediate, Verified 02/01/24 11:40) hives penicillin G [Penicillin G] Allergy (Mild, Verified 02/01/24 11:40) ITCH,HIVES doxepin Adverse Reaction (Intermediate, Verified 02/01/24 11:40) urinary frequency lisinopril Adverse Reaction (Intermediate, Verified 02/01/24 11:40) Cough amlodipine Adverse Reaction (Mild, Verified 02/01/24 11:40) dizziness Medication List - Last Reconciled 02/01/24 by Agnel Heard PA-C albuterol sulfate 90 mcg/actuation (Ventolin HFA) 1 puff inhalation QID PRN ascorbic acid (vitamin C) 500 mg PO DAILY cholecalciferol (vitamin D3) 25 mcg PO DAILY ibuprofen 600 mg PO Q8H PRN 30 days loratadine 10 mg PO DAILY 90 days losartan 25 mg PO DAILY 90 days magnesium oxide 250 mg PO BEDTIME 30 days multivitamin 1 tab PO DAILY multivitamin with minerals (Hair,Skin and Nails tablet) 1 tab PO DAILY omeprazole 20 mg PO DAILY trazodone 200 mg (2 x 100 mg) PO DAILY 90 days triamcinolone acetonide 0.1% 1 appl topical DAILY 7 days Tobacco use date assessed: 02/01/24 Dental Screening Dental Screen Date: 10/26/23 HPI f/u HTN/ LABS HPI Details Patient is a 53-year-old female here today for a follow-up visit.? Patient has a past medical history significant for hypertension, migraines, spastic bladder, osteoarthritis. . Concern--> she does report at times f eeling some midsternal chest pain that only is a parent for few minutes. PLAN: Due to patient's history of high blood pressure and high cholesterol will send for cardiac stress testing to evaluate for cardiac ischemia .. Insomnia: Patient continues on trazodone 200 mg at night before bed with good effect.? She would like to continue this current dose.? Unfortunately still having trouble sleeping even with high dose of trazodone. Will add on magnesium before bed to help sleep. Hypertension:? Blood pressure slightly elevated today in office. She has not been taking losartan for some unclear reason. ? Otherwise denies any headaches, chest discomfort, vision issues of shortness of breath. ? promises to consistently take her amlodipine for better blood pressure control.? .. Hyperlipidemia: Most recent lipid panel showing elevated total cholesterol patient does admit to dietary indiscretion. She is now willing to start low- dose statin therapy to reduce her cardiovascular risk. Laboratory Tests 05/21/23 07/11/23 11/05/23 10:24 13:03 10:44 Hgb 11.6 L Triglycerides 145 239 H Cholesterol 246 H 250 H [facility] Medical History COPD (chronic obstructive pulmonary disease) Osteoarthritis HTN (hypertension) Hypertriglyceridemia Anemia Pancreatitis GERD (gastroesophageal reflux disease) Trigeminal neuralgia of right side of face UTI (urinary tract infection) History of Clostridioides difficile colitis Surgical History Hx of arthroscopy of left knee H/O breast biopsy History of laparoscopic cholecystectomy Family History Father Colon cancer Mother No problems noted. Sister No problems noted. 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 Russ Armstrong, Chantelle Kent, Jason Lilly and colleagues, with an educational billy from [employer]. ACT Questionnaire In the past 4 weeks, how much of the time did your asthma keep you from getting as much done at work, school or at home?: None of the time During the past 4 weeks, how often have you had shortness of breath?: Not at all During the past 4 weeks, how often did your asthma symptoms wake you up at night or earlier than usual in the morning?: Not at all During the past 4 weeks, how often have you had to use your rescue inhaler or nebulizer medication?: Once a week or less How would you rate your asthma control during the past 4 weeks?: Completely controlled ACT Interpretation: Negative Score: 24 Review of Systems Const Denies headache(s) Eyes Denies loss of vision ENT Denies vertigo, Denies dizziness, Denies headache(s) and Denies sore throat Card Denies chest pain, Denies leg edema and Denies lightheadedness Resp Denies cough, Denies hemoptysis and Denies wheezing GI Denies abdominal pain, Denies melena, Denies constipation, Denies diarrhea and Denies vomiting Denies urinary frequency, Denies dysuria and Denies urinary urgency Musc Denies arthralgias, Denies joint swelling, Denies numbness and Denies tingling Neuro Denies Abnormal speech present, Denies behavioral changes, Denies vertigo, Denies dizziness, Denies headache(s), Denies loss of vision, Denies memory loss, Denies numbness and Denies tingling Psych Denies anxiety, Denies behavioral changes, Denies depression, Denies memory loss and Denies panic attacks Gaetano/Lymph Denies easy bleeding and Denies easy bruising Aller/Immun Denies wheezing Physical exam (Primary Care) Vital Signs: Last Vital Signs Pulse 68 02/01/24 11:15 BP 140/62 H 02/01/24 11:15 Pulse Ox 97 02/01/24 11:15 Oxygen Delivery Method Room Air 02/01/24 11:15 BMI result Body Mass Index 29.3 Tobacco/Smoking Status: Tobacco use Status Tobacco use date assessed 02/01/24 02/01/24 11:23 Patient Tobacco Use Status Never used Tobacco 02/01/24 11:14 e-Cigarette/Vaping Use Never Used 02/01/24 11:14 Thrive Assessment: Date of Thrive Assessment Date Thrive assessed 10/26/23 02/01/24 11:14 Const General: healthy appearing, no acute distress, alert and awake Nutritional Appearance: well nourished Orientation/consciousness: oriented to person, oriented to place and oriented to time HENMT Ears: TM's normal bilaterally General nose exam: Normal nasal mucous membranes and turbinates present Eyes Conjunctivae: conjunctivae normal Sclerae: sclerae normal Pupils: Equal, round and reactive pupils present Neck Neck: Yes no lymphadenopathy and Yes no JVD Thyroid: Thyroid normal Carotids: no bruits Resp Effort & Inspection: normal respiratory effort and not tachypneic Auscultation: no crackles, no rales, no rhonchi and no wheezes Cardio Rate: regular rate Rhythm: regular rhythm Heart sounds: no murmurs and normal S1 and S2 GI Palpation (GI): Soft to palpation, nontender, no hepatomegaly and no splenomegaly Auscultation: normal bowel sounds Skin General skin exam: no rashes or lesions noted and dry skin Neuro General: oriented to person, oriented to place and oriented to time Cranial nerves: Yes Equal, round and reactive pupils present Speech: No Abnormal speech present Gait exam (Neuro): Normal gait present Motor exam (neuro): no tremor noted Extrem Right upper extremity: full ROM Left upper extremity: full ROM Right lower extremity: full ROM; no edema Left lower extremity: full ROM; no edema Psych Mental Status: mental status grossly normal Speech and movement: Normal speech and movement present Affect: normal affect Attitude: cooperative Thought process: Normal thought process present Assessment and Plan Assessment & Plan (1) HTN (hypertension): Code(s): I10 - Essential (primary) hypertension Qualifiers: Hypertension type: primary hypertension Qualified Code(s): I10 - Essential (primary) hypertension Plan: Blood pressure slightly elevated today in office.. Will restart losartan 25 mg. 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 Advised to monitor blood pressure at home. Goal below 140/90 (2) Asthma: Code(s): J45.909 - Unspecified asthma, uncomplicated Qualifiers: Asthma complication type: uncomplicated Asthma persistence: intermittent Asthma severity: mild Qualified Code(s): J45.20 - Mild intermittent asthma, uncomplicated Plan: Patient reports his asthma has been fairly well controlled with only p.r.n. use of her albuterol inhaler. Otherwise denies any nighttime awakenings with asthma symptoms. (3) Hypertriglyceridemia: Code(s): E78.1 - Pure hyperglyceridemia Plan: Patient's most recent lipid panel showing elevated total cholesterol . Will start low-dose statin therapy. Will recheck lipid panel in 4 months to ensure normalization.. Goal LDL is to be below 130, goal total cholesterol to be below 230. She will continue working on lifestyle modifications to reduce her high cholesterol foods in her diet. (4) Insomnia: Code(s): G47.00 - Insomnia, unspecified Qualifiers: Insomnia type: unspecified Qualified Code(s): G47.00 - Insomnia, unspecified Plan: Patient reports trazodone to 200 mg at night before bed which has not been working well for sleep as of late. Will add on magnesium 250mg. Will like to continue this dose of trazodone. Of note has been on Ambien, doxepin though has side effects, . Melatonin was not effective (5) Chest pain: Code(s): R07.9 - Chest pain, unspecified Qualifiers: Chest pain type: intercostal pain Qualified Code(s): R07.82 - Intercostal pain Plan: Patient reports intermittent episodes of midsternal chest pain. Due to patient's history of hypertension and high cholesterol will send for cardiac stress test to rule out ischemic heart disease. Orders: Orders CA stress test Today R07.82 - Intercostal pain Complete Blood Count no Diff Today I10 - Essential (primary) hypertension Lipid Panel Today E78.1 - Pure hyperglyceridemia Comprehensive [place]. Panel Fast Today I10 - Essential (primary) hypertension Microalbumin, Random (w Creat) Today I10 - Essential (primary) hypertension Medications: New simvastatin 10 mg PO DAILY 90 tabs 1RF E78.1 - Pure hyperglyceridemia Refilled magnesium oxide 250 mg PO BEDTIME 30 tabs 4RF 30 days F51.01 - Primary insomnia, R51.9 - Headache, unspecified triamcinolone acetonide 0.1% 1 appl topical DAILY 30 grams 0RF 7 days L30.9 - Dermatitis, unspecified albuterol sulfate 90 mcg/actuation (Ventolin HFA) 1 puff inhalation QID PRN 18 ea 2RF for wheezing J30.9 - Allergic rhinitis, unspecified, J45.909 - Unspecified asthma, uncomplicated ibuprofen 600 mg PO Q8H PRN 90 tabs 2RF pain 30 days M77.11 - Lateral epicondylitis, right elbow loratadine 10 mg PO DAILY 90 tabs 2RF 90 days J30.9 - Allergic rhinitis, unspecified trazodone 200 mg (2 x 100 mg) PO DAILY 180 tabs 1RF 90 days F51.01 - Primary insomnia losartan 25 mg PO DAILY 90 tabs 2RF 90 days I10 - Essential (primary) hypertension Coding Level of Care Code Est Pt Level 4 (87870) Diagnoses Primary hypertension I10 Hypertension type: primary hypertension Mild intermittent asthma without complication J45.20 Asthma complication type: uncomplicated Asthma persistence: intermittent Asthma severity: mild Hypertriglyceridemia E78.1 Insomnia, unspecified type G47.00 Insomnia type: unspecified Intercostal pain R07.82 Chest pain type: intercostal pain
[2024-02-01 11:15] VITALS: BP 140/62; PULSE 68; O2SAT 97; BMI 29.3
== END 2024-02-01 11:58 | disposition home or self-care (01) ==
PROVIDERS: PCP Physician Assistant; Visit Provider Physician Assistant
DX: I10 Essential (primary) hypertension (principal); J45.20 Mild intermittent asthma, uncomplicated; E78.1 Pure hyperglyceridemia; G47.00 Insomnia, unspecified; R07.82 Intercostal pain
CPT/HCPCS: 99214

== ENCOUNTER → 2024-02-09 09:26 | Outpatient (REF) | payer OTHER, SELFPAY ==
--- NOTE | 2024-02-09 09:31 | CA_ITS ---
Acquisition Time: 2024-02-09 10:10:34 Total Exercise Time: 00:05:50 Test Indications: COPD Medications: SEE H Protocol: DEVIN Max HR: 144 BPM 85% of Pred: 168 BPM Max BP: 162/090 mmHG Max Work Load: 7.0 METS Exericse stress test exercise 5 min 50 sec of Devin protocol achieving 85% MPHR, with 4/10 chest pain at baseline mid sternal at baseline without change in intesity, with mild SOB, without arrhythmias, with normotensive response to exercise, without EKG changes. Test reviewed with Dr. Moffett Patient reports she did not take blood pressure medication this morning but did take analgesic medication this morning. Referred By: Angel Heard Overread By: Vanessa Lawson
== END ==
LOC: HO.CARD 09:26
PROVIDERS: PCP Physician Assistant; Visit Provider Physician Assistant
DX: R07.82 Intercostal pain (principal)
CPT/HCPCS: 93017

== ENCOUNTER → 2024-02-09 09:31 | Outpatient (BNV) | payer OTHER, SELFPAY | PROVIDERS: PCP Physician Assistant; Visit Provider Nurse Practitioner | DX: R07.9 Chest pain, unspecified (principal) | CPT/HCPCS: 93016; 93018 ==

== ENCOUNTER 2024-06-07 10:33 | Outpatient (AMB) | payer OTHER, SELFPAY ==
[2024-06-07 11:13] VITALS: BP 122/78; PULSE 72; O2SAT 98
--- NOTE | 2024-06-07 11:13 | MHC.PC.OV ---
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 Accompanied by: Self / Same As Patient Allergies diphtheria,pertussis (acellular),te [From Adacel(Tdap Adolesn/Adult)(PF)] Allergy (Severe, Verified 06/07/24 11:35) Swelling codeine Allergy (Intermediate, Verified 06/07/24 11:35) hives Influenza Virus Vaccines Allergy (Intermediate, Verified 06/07/24 11:35) arm swelling morphine Allergy (Intermediate, Verified 06/07/24 11:35) hives penicillin G [Penicillin G] Allergy (Mild, Verified 06/07/24 11:35) ITCH,HIVES doxepin Adverse Reaction (Intermediate, Verified 06/07/24 11:35) urinary frequency lisinopril Adverse Reaction (Intermediate, Verified 06/07/24 11:35) Cough amlodipine Adverse Reaction (Mild, Verified 06/07/24 11:35) dizziness Medication List - Last Reconciled 06/07/24 by Angel Heard PA-C albuterol sulfate 90 mcg/actuation (Ventolin HFA) 1 puff inhalation QID PRN ascorbic acid (vitamin C) 500 mg PO DAILY cholecalciferol (vitamin D3) 25 mcg PO DAILY ibuprofen 600 mg PO Q8H PRN 30 days loratadine 10 mg PO DAILY 90 days losartan 25 mg PO DAILY 90 days multivitamin 1 tab PO DAILY multivitamin with minerals (Hair,Skin and Nails tablet) 1 tab PO DAILY omeprazole 20 mg PO DAILY simvastatin 10 mg PO DAILY trazodone 200 mg (2 x 100 mg) PO DAILY 90 days triamcinolone acetonide 0.1% 1 appl topical DAILY 7 days Tobacco use date assessed: 02/01/24 Dental Screening Dental Screen Date: 10/26/23 HPI f/u HLD / HTN HPI Details Patient is a 53-year-old female here today for a follow-up visit.? Patient has a past medical history significant for hypertension, migraines, spastic bladder, osteoarthritis. .. Insomnia: Patient continues on trazodone 200 mg at night before bed with good effect.? She would like to continue this current dose.? Unfortunately still having trouble sleeping even with high dose of trazodone. She has tried magnesium though felt it was not effective. Melatonin past was not effective though is interested in trying it again. Hypertension:? Blood pressure today in office acceptable . She has not been taking losartan for some unclear reason. ? Otherwise denies any headaches, chest discomfort, vision issues of shortness of breath. ? promises to consistently take her amlodipine for better blood pressure control.? .. Hyperlipidemia: Most recent lipid panel showing elevated total cholesterol patient does admit to dietary indiscretion. She is now willing to start low-dose statin therapy to reduce her cardiovascular risk. Laboratory Tests 05/21/23 11/05/23 10:24 10:44 Cholesterol 246 H 250 H LDL Cholesterol, C alc 146 H 131 H PFSH Medical History COPD (chronic obstructive pulmonary disease) Osteoarthritis HTN (hypertension) Hypertriglyceridemia Anemia Pancreatitis GERD (gastroesophageal reflux disease) Trigeminal neuralgia of right side of face UTI (urinary tract infection) History of Clostridioides difficile colitis Surgical History Hx of arthroscopy of left knee H/O breast biopsy History of laparoscopic cholecystectomy Family History Father Colon cancer Mother No problems noted. Sister No problems noted. 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 Russ Armstrong, Chantelle Kent, Jason Lilly and colleagues, with an educational billy from [employer]. Review of Systems Const Denies headache(s) Eyes Denies loss of vision ENT Denies vertigo, Denies dizziness, Denies headache(s) and Denies sore throat Card Denies chest pain, Denies leg edema and Denies lightheadedness Resp Denies cough, Denies hemoptysis and Denies wheezing GI Denies abdominal pain, Denies melena, Denies constipation, Denies diarrhea and Denies vomiting Denies urinary frequency, Denies dysuria and Denies urinary urgency Musc Denies arthralgias, Denies joint swelling, Denies numbness and Denies tingling Neuro Denies Abnormal speech present, Denies behavioral changes, Denies vertigo, Denies dizziness, Denies headache(s), Denies loss of vision, Denies memory loss, Denies numbness and Denies tingling Psych Denies anxiety, Denies behavioral changes, Denies depression, Denies memory loss and Denies panic attacks Gaetano/Lymph Denies easy bleeding and Denies easy bruising Aller/Immun Denies wheezing Physical exam (Primary Care) Vital Signs: Last Vital Signs Pulse 72 06/07/24 11:13 BP 122/78 06/07/24 11:13 Pulse Ox 98 06/07/24 11:13 Oxygen Delivery Method Room Air 06/07/24 11:13 BMI result Body Mass Index 30.0 Tobacco/Smoking Status: Tobacco use Status Tobacco use date assessed 02/01/24 06/07/24 11:15 Patient Tobacco Use Status Never used Tobacco 06/07/24 11:15 e-Cigarette/Vaping Use Never Used 06/07/24 11:15 Thrive Assessment: Date of Thrive Assessment Date Thrive assessed 10/26/23 06/07/24 11:15 Const General: healthy appearing, no acute distress, alert and awake Nutritional Appearance: well nourished Orientation/consciousness: oriented to person, oriented to place and oriented to time HENMT Ears: TM's normal bilaterally General nose exam: Normal nasal mucous membranes and turbinates present Eyes Conjunctivae: conjunctivae normal Sclerae: sclerae normal Pupils: Equal, round and reactive pupils present Neck Neck: Yes no lymphadenopathy and Yes no JVD Thyroid: Thyroid normal Carotids: no bruits Resp Effort & Inspection: normal respiratory effort and not tachypneic Auscultation: no crackles, no rales, no rhonchi and no wheezes Cardio Rate: regular rate Rhythm: regular rhythm Heart sounds: no murmurs and normal S1 and S2 GI Palpation (GI): Soft to palpation, nontender, no hepatomegaly and no splenomegaly Auscultation: normal bowel sounds Skin General skin exam: no rashes or lesions noted and dry skin Neuro General: oriented to person, oriented to place and oriented to time Cranial nerves: Yes Equal, round and reactive pupils present Speech: No Abnormal speech present Gait exam (Neuro): Normal gait present Motor exam (neuro): no tremor noted Extrem Right upper extremity: full ROM Left upper extremity: full ROM Right lower extremity: full ROM; no edema Left lower extremity: full ROM; no edema Psych Mental Status: mental status grossly normal Speech and movement: Normal speech and movement present Affect: normal affect Attitude: cooperative Thought process: Normal thought process present Assessment and Plan Assessment & Plan (1) HTN (hypertension): Code(s): I10 - Essential (primary) hypertension Qualifiers: Hypertension type: primary hypertension Qualified Code(s): I10 - Essential (primary) hypertension Plan: Patient's blood pressure acceptable today in office. She has not been using she feels he does not to monitor blood pressure at home. Advised to monitor blood pressure at home. Goal below 140/90 (2) Asthma: Code(s): J45.909 - Unspecified asthma, uncomplicated Qualifiers: Asthma severity: mild Asthma persistence: intermittent Asthma complication type: uncomplicated Qualified Code(s): J45.20 - Mild intermittent asthma, uncomplicated Plan: Patient reports his asthma has been fairly well controlled with only p.r.n. use of her albuterol inhaler. Otherwise denies any nighttime awakenings with asthma symptoms. (3) Hypertriglyceridemia: Code(s): E78.1 - Pure hyperglyceridemia Plan: Patient's most recent lipid panel showing elevated total cholesterol . She is not consistent with the use of statin therapy for some unclear reason Will recheck lipid panel in 4 months to ensure normalization.. Goal LDL is to be below 130, goal total cholesterol to be below 230. She will continue working on lifestyle modifications to reduce her high cholesterol foods in her diet. (4) Insomnia: Code(s): G47.00 - Insomnia, unspecified Qualifiers: Insomnia type: unspecified Qualified Code(s): G47.00 - Insomnia, unspecified Plan: Patient reports trazodone to 200 mg at night before bed which has not been working well for sleep as of late. Will like to continue this dose of trazodone for now. She reports trazodone makes her eat more does she has gained weight. He is interested in trying melatonin again for sleep Of note has been on Ambien, doxepin though has side effects, . Medications: Refilled trazodone 200 mg (2 x 100 mg) PO DAILY 90 days 180 tabs 2RF F51.01 - Primary insomnia Coding Level of Care Code Est Pt Level 4 (64530) Diagnoses Primary hypertension I10 Hypertension type: primary hypertension Mild intermittent asthma without complication J45.20 Asthma severity: mild Asthma persistence: intermittent Asthma complication type: uncomplicated Hypertriglyceridemia E78.1 Insomnia, unspecified type G47.00 Insomnia type: unspecified
== END 2024-06-07 11:52 | disposition home or self-care (01) ==
PROVIDERS: PCP Physician Assistant; Visit Provider Physician Assistant
DX: I10 Essential (primary) hypertension (principal); J45.20 Mild intermittent asthma, uncomplicated; E78.1 Pure hyperglyceridemia; G47.00 Insomnia, unspecified
CPT/HCPCS: 99214

== ENCOUNTER 2024-06-09 09:11 | Outpatient (REF) | payer OTHER, SELFPAY ==
[2024-06-09 09:54] LABS: Hematocrit 37.5 % (37.0-47.0); Hemoglobin 11.9 g/dl (12.0-16.0); Mean Corpuscular HGB Conc 31.7 g/dl (31.0-35.0); Mean Corpuscular Hemoglobin 27.9 pg (27.0-33.0); Mean Corpuscular Volume 87.8 fL (80.0-98.0); Mean Platelet Volume 10.6 fL (9.4-12.3); Platelet Count 326 X10*3/uL (160-400); Red Blood Count 4.27 X10*6/uL (4.20-5.50); Red Cell Distribution Width 11.9 % (11.0-16.0); White Blood Count 5.9 X10*3/uL (4.8-10.8)
[2024-06-09 10:45] LABS: Alanine Aminotransferase 14 U/L (0-31); Albumin Level 4.5 g/dL (3.5-5.0); Alkaline Phosphatase 77 U/L (39-117); Anion Gap 12 (12-20); Aspartate Amino Transferase 15 U/L (5-31); Bilirubin Total 0.3 mg/dL (0.0-1.0); Blood Urea Nitrogen 15 mg/dL (9-16); Calcium 9.6 mg/dL (8.4-10.2); Carbon Dioxide 26 mmol/L (22-29); Chloride 107 mmol/L (96-108); Cholesterol 266 mg/dL (<200); Estimated Glomerular Filt Rate > 60; Glucose Fasting 99 mg/dL (60-99); HDL Cholesterol 70 mg/dL (>40); LDL Cholesterol Calculated 165 mg/dL (<100); Potassium 4.5 mmol/L (3.3-5.1); Sodium 140 mmol/L (135-145); Total Protein 7.8 g/dL (6.5-8.0); Triglycerides 157 mg/dL (<150)
[2024-06-09 11:45] LABS: Creatinine Urine 130.73 mg/dL; Microalbum/Creatinine Ratio Ur 6.1 ug/mg cr (<30)
== END 2024-06-09 09:12 | disposition home or self-care (01) ==
LOC: HO.LAB 09:11
PROVIDERS: PCP Physician Assistant; Visit Provider Physician Assistant
DX: I10 Essential (primary) hypertension (principal); E78.1 Pure hyperglyceridemia
CPT/HCPCS: 36415; 80053; 80061; 82043; 82570; 85027

== ENCOUNTER 2024-06-10 10:34 | Outpatient (REF) | payer OTHER, SELFPAY ==
--- NOTE | ~2024-06-10 | MM_ITS ---
EXAMINATION: MM SCREENING DIGITAL BREAST TOMOSYNTHESIS, BILATERAL CLINICAL INFORMATION: Screening. Asymptomatic. COMPARISON: Mammography: Comparison is made with available priors TECHNIQUE: Digital breast mammography with tomosynthesis is performed in both the craniocaudal and mediolateral oblique views along with computer-aided detection (CAD). FINDINGS: There are scattered areas of fibroglandular density (ACR BI-RADS breast composition Category b). Marker clip in the right breast from previous needle core biopsy. There are no significant masses, abnormal calcifications, or other abnormalities. MM/MM tomosynthesis screening BI IMPRESSION: No mammographic evidence of malignancy. ASSESSMENT: BI-RADS BI-RADS 2 - Benign Findings RECOMMENDATION: Routine annual mammography screening. 1 year F/U This examination should not preclude the clinical evaluation of a suspicious palpable abnormality. This patient's information was entered into a reminder system with a target due date for their next mammogram. Electronically signed by: Merari Barrios DO 06/23/2024 08:16 PM EDT
== END 2024-06-10 10:35 | disposition home or self-care (01) ==
LOC: HO.MAMMO 10:34
PROVIDERS: PCP Physician Assistant; Visit Provider Physician Assistant
DX: Z12.31 Encounter for screening mammogram for malignant neoplasm of breast (principal)
CPT/HCPCS: 77063; 77067

== ENCOUNTER → 2024-06-10 10:45 | Outpatient (BNV) | payer OTHER, SELFPAY | PROVIDERS: PCP Physician Assistant; Visit Provider Internal Medicine | DX: Z12.31 Encounter for screening mammogram for malignant neoplasm of breast (principal) | CPT/HCPCS: 77063; 77067 ==

== ENCOUNTER 2024-12-06 | Outpatient (REF) | payer OTHER, SELFPAY ==
--- OUTSIDE RECORDS SUMMARY | 2025-01-31 13:22 | XMS_ITS | Clinical Summary ---
Author Organization [employer] [facility] ity Address [address] [place] [address] Care Team Providers Care Account Assistant Name Role Phone Mag Lerma MD Primary Care Provider [phone] Social History Tobacco Use Types Packs/Day Years [...] - 2023-2 5 season) 2024 Influenza Vaccine (Season Ended) 2025 HIB Vaccines Aged Out No longer eligi [...] age to complete this topic Meningococcal B Vaccine Aged Out No l onger eligible based on patient's age to complete [...] age to complete this topic Care Teams Account Assistant Relationship Specialty Start Date End Date Mag Lerma MD [address] [place] [address] , [address] [facility] D/B/A: [facility] PADMA Hitchcock PCP - General Internal Medicine 07/01/14
== END 2024-12-06 00:01 | disposition home or self-care (01) ==
LOC: CF
PROVIDERS: Visit Provider Physician Assistant
DX: Z00.00 Encounter for general adult medical examination without abnormal findings (principal); I10 Essential (primary) hypertension; E78.1 Pure hyperglyceridemia; E66.811 Obesity, class 1; H90.3 Sensorineural hearing loss, bilateral; H72.92 Unspecified perforation of tympanic membrane, left ear
CPT/HCPCS: 96127; 99396

== ENCOUNTER → 2024-12-06 10:08 | Outpatient (BNVA) | payer OTHER, SELFPAY | PROVIDERS: PCP Physician Assistant; Visit Provider Physician Assistant Medical | DX: Z00.01 Encounter for general adult medical examination with abnormal findings (principal); F51.01 Primary insomnia; E78.1 Pure hyperglyceridemia; E66.811 Obesity, class 1; Z68.31 Body mass index [BMI] 31.0-31.9, adult; H90.3 Sensorineural hearing loss, bilateral; F41.9 Anxiety disorder, unspecified; Z86.69 Personal history of other diseases of the nervous system and sense organs; Z91.410 Personal history of adult physical and sexual abuse; Z87.828 Personal history of other (healed) physical injury and trauma; Z79.899 Other long term (current) drug therapy | CPT/HCPCS: 96127; 99396 ==

== ENCOUNTER 2024-12-06 14:48 | Outpatient (AMB) | payer OTHER, SELFPAY ==
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
[2024-12-06 14:55] VITALS: BP 130/72; PULSE 87; O2SAT 97; BMI 31.0
--- OUTSIDE RECORDS SUMMARY | 2024-12-06 18:10 | XMS_ITS | Clinical Summary ---
Author Organization [employer] [facility] ity Address [address] [place] [address] Care Team Providers Care Pot Washer Name Role Phone Mag Lerma MD Primary Care Provider [phone] Social History Tobacco Use Types Packs/Day Years Used Date Smoking Tobacco: Never Assessed Comments Unknown Sex and Gender Information Value Date Recorded Sex Assigned at Not on file Legal Sex Female 9:50 AM EST Gender Identity Not on file Sexual Orientation Not on file Plan of Treatment Health Maintenance Due Date Last Done Comments Breast Cancer Screening 1971 DTaP,Tdap,and Td Vaccines (1 - Tdap) 1990 Hepatitis B Vaccines (1 of 3 - 19+ 3-dose series) 1990 Cervical Cancer Screening: P ap Smear 1992 Pneumococcal Vaccine: 50+ Ye ars (1 of 1 - PCV) 2021 Zoster Vaccines (1 of 2) 2021 COVID-19 Vaccine ( - 2023-2 5 season) 2024 Influenza Vaccine (#1) 2024 HIB Vaccines Aged Out No longer eligi ble based on patient's age to complete this topic HPV Vaccines Aged Out No longer eligi ble based on patient's age to complete this topic Hepatitis A Vaccines Aged Out No long er eligible based on patient's age to complete this topic IPV Vaccines Aged Out No longer eligi ble based on patient's age to complete this topic MMR Vaccines Aged Out No longer eligi ble based on patient's age to complete this topic Meningococcal ACWY Vaccine Aged Out N o longer eligible based on patient's age to complete this topic Meningococcal B Vacine Aged Out No lo nger eligible based on patient's age to complete this topic Pneumococcal Vaccine: Pediat rics (0 to 5 Years) and At-Risk Patients (6 to 64 Years) Aged Out No longer eligible b ased on patient's age to complete this topic RSV Immunization Patients Un kwadwo 20 months Aged Out No longer eligible b ased on patient's age to complete this topic Varicella Vaccines Aged Out No longer eligible based on patient's age to complete this topic Care Teams Pot Washer Relationship Specialty Start Date End Date Mag Lerma MD [address] [place] [address] , [address] [facility] D/B/A: [facility] PADMA Hitchcock PCP - General Internal Medicine 07/01/14
== END 2024-12-06 15:50 | disposition home or self-care (01) ==
LOC: HO.HMCH 14:48
PROVIDERS: PCP Physician Assistant; Visit Provider Physician Assistant
DX: Z00.00 Encounter for general adult medical examination without abnormal findings (principal); I10 Essential (primary) hypertension; E66.811 Obesity, class 1; Z68.31 Body mass index [BMI] 31.0-31.9, adult; E78.1 Pure hyperglyceridemia; H72.92 Unspecified perforation of tympanic membrane, left ear; H90.3 Sensorineural hearing loss, bilateral

== ENCOUNTER 2024-12-22 08:06 | Outpatient (REF) | payer OTHER, SELFPAY ==
[2024-12-22 08:35] LABS: Hematocrit 35.8 % (37.0-47.0); Hemoglobin 11.5 g/dl (12.0-16.0); Mean Corpuscular HGB Conc 32.1 g/dl (31.0-35.0); Mean Corpuscular Hemoglobin 27.6 pg (27.0-33.0); Mean Corpuscular Volume 85.9 fL (80.0-98.0); Mean Platelet Volume 10.5 fL (9.4-12.3); Platelet Count 337 X10*3/uL (160-400); Red Blood Count 4.17 X10*6/uL (4.20-5.50); Red Cell Distribution Width 12.3 % (11.0-16.0); White Blood Count 6.4 X10*3/uL (4.8-10.8)
[2024-12-22 09:00] LABS: Alanine Aminotransferase 21 U/L (0-31); Albumin Level 4.3 g/dL (3.5-5.0); Alkaline Phosphatase 78 U/L (39-117); Anion Gap 9 (12-20); Aspartate Amino Transferase 19 U/L (5-31); Bilirubin Total 0.3 mg/dL (0.0-1.0); Blood Urea Nitrogen 14 mg/dL (9-16); Calcium 9.4 mg/dL (8.4-10.2); Carbon Dioxide 26 mmol/L (22-29); Chloride 111 mmol/L (96-108); Cholesterol 220 mg/dL (<200); Estimated Glomerular Filt Rate > 60; Glucose Fasting 103 mg/dL (60-99); HDL Cholesterol 60 mg/dL (>40); LDL Cholesterol Calculated 108 mg/dL (<100); Potassium 4.3 mmol/L (3.3-5.1); Sodium 142 mmol/L (135-145); Total Protein 7.6 g/dL (6.5-8.0); Triglycerides 260 mg/dL (<150)
[2024-12-22 09:12] LABS: Creatinine Urine 112.45 mg/dL; Microalbum/Creatinine Ratio Ur 5.3 ug/mg cr (<30)
== END 2024-12-22 08:07 | disposition home or self-care (01) ==
LOC: HO.LAB 08:06
PROVIDERS: PCP Physician Assistant; Visit Provider Physician Assistant
DX: I10 Essential (primary) hypertension (principal); E78.1 Pure hyperglyceridemia
CPT/HCPCS: 36415; 80053; 80061; 82043; 82570; 85027

== ENCOUNTER 2025-02-27 13:58 | Outpatient (REF) | payer OTHER, SELFPAY ==
[2025-02-27 16:00] LABS: Hematocrit 37.8 % (37.0-47.0); Hemoglobin 11.8 g/dl (12.0-16.0); Mean Corpuscular HGB Conc 31.2 g/dl (31.0-35.0); Mean Corpuscular Hemoglobin 27.3 pg (27.0-33.0); Mean Corpuscular Volume 87.5 fL (80.0-98.0); Mean Platelet Volume 10.6 fL (9.4-12.3); NRBC Pct Auto 0.4 /100WBC (0.0-0.2); Platelet Count 343 X10*3/uL (160-400); Red Blood Count 4.32 X10*6/uL (4.20-5.50); Red Cell Distribution Width 11.6 % (11.0-16.0); White Blood Count 7.2 X10*3/uL (4.8-10.8)
[2025-02-27 16:44] LABS: Alanine Aminotransferase 39 U/L (0-31); Albumin Level 4.7 g/dL (3.5-5.0); Alkaline Phosphatase 83 U/L (39-117); Anion Gap 15 (12-20); Aspartate Amino Transferase 30 U/L (5-31); Bilirubin Total 0.4 mg/dL (0.0-1.0); Blood Urea Nitrogen 16 mg/dL (9-16); Calcium 9.8 mg/dL (8.4-10.2); Carbon Dioxide 25 mmol/L (22-29); Chloride 106 mmol/L (96-108); Cholesterol 243 mg/dL (<200); Estimated Glomerular Filt Rate > 60; Glucose Fasting 90 mg/dL (60-99); HDL Cholesterol 73 mg/dL (>40); LDL Cholesterol Calculated 134 mg/dL (<100); Potassium 4.9 mmol/L (3.3-5.1); Sodium 141 mmol/L (135-145); Total Protein 7.9 g/dL (6.5-8.0); Triglycerides 184 mg/dL (<150)
[2025-02-27 17:47] LABS: Urine Cytology See Pathology rpt
[2025-02-27 17:57] LABS: Appearance Urine Clear; Color Urine Yellow; Glucose Urine UA Negative (Negative); Leukocyte Esterase Urine Small (1+) (Negative); Nitrite Urine Negative (Negative); PH 5.5 (5.0-9.0); Specific Gravity - Urine 1.025 (1.005-1.025); UMIC TRIGGER UACC YES; Urine Blood Negative (Negative); Urine Ketones Trace mg/dL (Negative); Urine Protein Negative (Neg-Trace)
[2025-02-27 18:00] LABS: Bacteria Urine None Seen (None Seen); Hyaline Casts Urine 0-2 /LPF (0-2); RBC Urine 0-2 /HPF (0-2); UACC Culture Trigger YES
== END 2025-02-27 13:59 | disposition home or self-care (01) ==
LOC: HO.LAB 13:58
PROVIDERS: PCP Physician Assistant; Visit Provider Physician Assistant
DX: I10 Essential (primary) hypertension (principal); R31.29 Other microscopic hematuria; E78.1 Pure hyperglyceridemia; R30.0 Dysuria; L60.0 Ingrowing nail; F51.01 Primary insomnia
CPT/HCPCS: 36415; 80053; 80061; 81001; 85027; 87086; 88112; 99212

== ENCOUNTER 2025-02-27 13:58 | Outpatient (AMB) | payer OTHER, SELFPAY ==
--- NOTE | 2025-02-27 14:04 | MHC.PC.OV ---
Vital Signs 02/27/25 14:05 Height 5 ft 1 in Weight 161 lb 4 oz BMI 30.5 BP 112/56 L Blood Pressure Location Lt brachial Position Sitting Pulse 65 Pulse Source Pulse Oximeter Temp 97.1 F Temp Source Temporal Artery Scan Pulse Oximetry (%) 100 Oxygen Delivery Method Room Air Intake Visit Reasons: Ingrown toenails ( both feet) Intake Note: Patient is here to follow up on Ingrown toenails both feet. 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 Steel Handling: Not Required per policy Accompanied by: Self / Same As Patient Allergies diphtheria,pertussis (acellular),te [From Adacel(Tdap Adolesn/Adult)(PF)] Allergy (Severe, Verified 02/27/25 14:15) Swelling codeine Allergy (Intermediate, Verified 02/27/25 14:15) hives Influenza Virus Vaccines Allergy (Intermediate, Verified 02/27/25 14:15) arm swelling morphine Allergy (Intermediate, Verified 02/27/25 14:15) hives penicillin G [Penicillin G] Allergy (Mild, Verified 02/27/25 14:15) ITCH,HIVES doxepin Adverse Reaction (Intermediate, Verified 02/27/25 14:15) urinary frequency lisinopril Adverse Reaction (Intermediate, Verified 02/27/25 14:15) Cough amlodipine Adverse Reaction (Mild, Verified 02/27/25 14:15) dizziness Medication List - Last Reconciled 02/27/25 by Angel Haerd PA-C albuterol sulfate 90 mcg/actuation (Ventolin HFA) 1 puff inhalation QID PRN ascorbic acid (vitamin C) 500 mg PO DAILY cholecalciferol (vitamin D3) 25 mcg PO DAILY ibuprofen 600 mg PO Q8H PRN 30 days loratadine 10 mg PO DAILY 90 days lorazepam 0.5 mg PO DAILY PRN 4 days losartan 25 mg PO DAILY 90 days multivitamin 1 tab PO DAILY multivitamin with minerals (Hair,Skin and Nails tablet) 1 tab PO DAILY omeprazole 20 mg PO DAILY simvastatin 10 mg PO DAILY 90 days trazodone 200 mg (2 x 100 mg) PO DAILY 90 days triamcinolone acetonide 0.1% 1 appl topical DAILY 7 days Tobacco use date assessed: 02/27/25 Dental Screening Dental Screen Date: 12/06/24 HPI Ingrown toenails ( both feet) HPI Details The patient is a 54-year-old female presenting with complaints related to bilateral ingrown toenails and trace hematuria identified in a recent urinalysis. She describes moderate to severe pain associated with the toenails, particularly during nighttime, and attributes the situation to pressure from certain footwear. Home remedy attempts have been ineffective. The trace hematuria was an incidental finding, not associated with any urinary symptoms or menstruation, and is without prior occurrence. Additionally, the patient has a history of insomnia, with current treatment using trazodone failing to yield satisfactory results. [facility] Medical History COPD (chronic obstructive pulmonary disease) Osteoarthritis HTN (hypertension) Hypertriglyceridemia Anemia Pancreatitis GERD (gastroesophageal reflux disease) Trigeminal neuralgia of right side of face UTI (urinary tract infection) History of Clostridioides difficile colitis Surgical History Hx of arthroscopy of left knee H/O breast biopsy History of laparoscopic cholecystectomy Family History Father Colon cancer Mother No problems noted. Sister No problems noted. 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 Current occupational exposures/hazards: No Cognitive needs: No Hearing needs: Yes Vision needs: Yes (reading glasses) Questionnaire Thrive Questionnaire Date Thrive assessed: 12/06/24 I am a: Patient What is your living situation today?: I have a steady place to live Within the past 12 months, did the food you bought not last and you didn't have the money to get more?: I choose not to answer this question Within the past 12 months, did you worry whether your food would run out before you got money to buy more?: I choose not to answer this question Do you have trouble paying for medicines?: No Do you have trouble getting transportation to medical appointments?: No Do you have trouble paying your heating and electricity bill?: No Do you have trouble taking care of your child, family member or friend?: No Do you have trouble with day-to-day activities such as bathing, preparing meals, shopping, managing finances, etc.?: No Are you currently unemployed and looking for a job?: No Are you interested in more education?: No Please select the resources that you would like help with: None Currently or been in a relationship where the following occur: I choose not to answer THRIVE Score: 0 AUDIT C Alcohol Use Questionnaire (AUDIT-C) 1. How often do you have a drink containing alcohol?: Never Total Score: 0 CHIDI-7 AMB Questionnaire CHIDI-7 Date CHIDI - 7 assessed: 12/06/24 Feeling nervous, anxious, or on edge: 0 = Not at all Not being able to stop or control worryin = Not at all Worrying too much about different things: 3 = Nearly every day Trouble relaxin = Not at all Being so restless that it is hard to sit still: 0 = Not at all Becoming easily annoyed or irritable: 0 = Not at all Feeling afraid as if something awful might happen: 0 = Not at all Total CHIDI-7 score (0-4 normal; 5-9 mild; 10-14 moderate; 15-21 severe): 3 Source: Developed by Drs. Russ Armstrong, Chantelle Kent, Jason Lilly and colleagues, with an educational billy from [employer]. Review of Systems Const Denies headache(s) Eyes Denies loss of vision ENT Denies vertigo, Denies dizziness, Denies headache(s) and Denies sore throat Card Denies chest pain, Denies leg edema and Denies lightheadedness Resp Denies cough, Denies hemoptysis and Denies wheezing GI Denies abdominal pain, Denies melena, Denies constipation, Denies diarrhea and Denies vomiting Denies urinary frequency, Denies dysuria and Denies urinary urgency Musc Denies arthralgias, Denies joint swelling, Denies numbness and Denies tingling Neuro Denies Abnormal speech present, Denies behavioral changes, Denies vertigo, Denies dizziness, Denies headache(s), Denies loss of vision, Denies memory loss, Denies numbness and Denies tingling Psych Denies anxiety, Denies behavioral changes, Denies depression, Denies memory loss and Denies panic attacks Gaetano/Lymph Denies easy bleeding and Denies easy bruising Aller/Immun Denies wheezing Physical exam (Primary Care) Vital Signs: Last Vital Signs Temp 97.1 F 02/27/25 14:05 Pulse 65 02/27/25 14:05 BP 112/56 L 02/27/25 14:05 Pulse Ox 100 02/27/25 14:05 Oxygen Delivery Method Room Air 02/27/25 14:05 BMI result Body Mass Index 30.5 Tobacco/Smoking Status: Tobacco use Status Tobacco use date assessed 02/27/25 02/27/25 14:10 Patient Tobacco Use Status Never used Tobacco 02/27/25 14:10 e-Cigarette/Vaping Use Never Used 02/27/25 14:10 Thrive Assessment: Date of Thrive Assessment Date Thrive assessed 12/06/24 02/27/25 14:10 Currently or been in a relationship where the following occur: I choose not to answer Const General: healthy appearing, no acute distress, alert and awake Nutritional Appearance: well nourished Orientation/consciousness: oriented to person, oriented to place and oriented to time HENMT Ears: TM's normal bilaterally General nose exam: Normal nasal mucous membranes and turbinates present Eyes Conjunctivae: conjunctivae normal Sclerae: sclerae normal Pupils: Equal, round and reactive pupils present Neck Neck: Yes no lymphadenopathy and Yes no JVD Thyroid: Thyroid normal Carotids: no bruits Resp Effort & Inspection: normal respiratory effort and not tachypneic Auscultation: no crackles, no rales, no rhonchi and no wheezes Cardio Rate: regular rate Rhythm: regular rhythm Heart sounds: no murmurs and normal S1 and S2 GI Palpation (GI): Soft to palpation, nontender, no hepatomegaly and no splenomegaly Auscultation: normal bowel sounds Skin General skin exam: no rashes or lesions noted and dry skin Neuro General: oriented to person, oriented to place and oriented to time Cranial nerves: Yes Equal, round and reactive pupils present Speech: No Abnormal speech present Gait exam (Neuro): Normal gait present Motor exam (neuro): no tremor noted Extrem Right upper extremity: full ROM Left upper extremity: full ROM Right lower extremity: full ROM; no edema Left lower extremity: full ROM; no edema Psych Mental Status: mental status grossly normal Speech and movement: Normal speech and movement present Affect: normal affect Attitude: cooperative Thought process: Normal thought process present Results AMB Urinalysis Automated WC UR Glucose Negative Last Edit by Mattie Denise RN on 02/27/25 13:34 UR Ketone Negative Last Edit by Mattie Denise RN on 02/27/25 13:34 UR Specific [place] 1.030 Last Edit by Mattie Denise RN on 02/27/25 13:34 UR Blood Trace Last Edit by Mattie Denise RN on 02/27/25 13:34 UR Ph 5.5 Last Edit by Mattie Denise RN on 02/27/25 13:34 UR Protein Negative Last Edit by Mattie Denise RN on 02/27/25 13:34 UR Nitrite Negative Last Edit by Mattie Denise RN on 02/27/25 13:34 UR Leukocytes Small Last Edit by Mattie Denise RN on 02/27/25 13:34 Coding Level of Care Code Est Pt Level 4 (21279) Diagnoses Ingrown nail L60.0 Microscopic hematuria R31.29 Assessment & Plan Assessment & Plan (1) Ingrown nail: Code(s): L60.0 - Ingrowing nail Category: Medical Plan: Due to persistent painful bilateral ingrown toenails negatively impacting daily activities and shoe choice, a podiatry referral was arranged to address this condition before the patient's new job starts. (2) Microscopic hematuria: Code(s): R31.29 - Other microscopic hematuria Category: Medical Plan: We plan to repeat urinalysis with urine cytology to thoroughly investigate the trace hematuria noted in the recent urinalysis, considering there are no related urinary symptoms. Orders: Orders UA CC w/rflx Micro + Cult Today R30.0 - Dysuria, R31.29 - Other microscopic hematuria Complete Blood Count no Diff Today I10 - Essential (primary) hypertension Urine Cytology Today R31.29 - Other microscopic hematuria Comprehensive Adkins. Panel Fast Today I10 - Essential (primary) hypertension Lipid Panel Today E78.1 - Pure hyperglyceridemia, I10 - Essential (primary) hypertension Referrals Neurology Referral F51.01 - Primary insomnia Podiatry Referral L60.0 - Ingrowing nail Medications: New quetiapine (Seroquel) 50 mg PO BEDTIME 30 days 30 tabs 1RF F51.01 - Primary insomnia On Hold trazodone Hold Comment: Doctor's Order 200 mg (2 x 100 mg) PO DAILY 90 days 180 tabs 2RF F51.01 - Primary insomnia
[2025-02-27 14:05] VITALS: BP 112/56; PULSE 65; TEMP 36.2; O2SAT 100; BMI 30.5
--- OUTSIDE RECORDS SUMMARY | 2025-02-27 15:15 | XMS_ITS | Clinical Summary ---
Author Organization [facility] ity Address [address] [place] [address] Care Team Providers Care Stone Layer Name Role Phone Mag Lerma MD Primary Care Provider [phone] Social History Tobacco Use Types Packs/Day Years [...] age to complete this topic Care Teams Stone Layer Relationship Specialty Start Date End Date Mag Lerma MD [address] [place] [address] , [address] [facility] D[facility] PADMA Hitchcock PCP - General Internal Medicine 07/01/14
== END 2025-02-27 14:29 | disposition home or self-care (01) ==
LOC: HO.HMCH 13:59
PROVIDERS: PCP Physician Assistant; Visit Provider Physician Assistant
DX: L60.0 Ingrowing nail (principal); R31.29 Other microscopic hematuria

== ENCOUNTER 2025-03-01 08:59 | Outpatient (REF) | payer OTHER, SELFPAY ==
--- NOTE | 2025-03-01 10:35 | MHC.AU.HA1 ---
Hearing Aid Evaluation Date of Visit: 03/01/25 Historical Information: Description of Hearing: Moderately severe sensorineural hearing loss bilaterally Current personal amplification information, if applicable: Has not worn HAs in several years Summary: Kait is here for updated evaluation and hearing aid selection. States one of her hearing aids broke a few years ago and she was not comfortable wearing only 1. Hearing stable (see audiogram). Discussed options for current technology- previously wore RICs with slim tips, would like to stay with same style with rechargeable batteries and connection to her Android phone. Impressions taken without incident. Selected Phonak Audeo i50 R in sand beige, #1 receivers with cshells. Will request medical clearance and order device once received, will call patient when devices arrive. Hearing Aid Prescription: Based on the individual?s shared listening needs, communication environments, dexterity, desire for connectivity, and personal preferences, the following prescription for amplification has been made: Right ear: Make, Model, Color: Phonak Audeo I50 R, sand beige Battery Size: Rechargeable Blown Film Extrusion Operator/Slim Tube: 1P Type of Earmold/Dome/CShell/SlimTip: canal cshell Left ear: Left ear prescription to be same as Right Hearing Aid above: Make, Model, Color: Phonak Audeo I50 R, sand beige Battery Size: 13 Blown Film Extrusion Operator/Slim Tube: 1P Type of Earmold/Dome/CShell/SlimTip: canal cshell Accessories/Assistive Technology Recommended: recharger Plan of Care: Patient wishes to purchase hearing aids as prescribed Action Taken/Action Needed: Earmold Impressions Taken Medical Clearance to be requested from PCP/ENT Hearing Instrument Fitting to be scheduled when materials arrive Primary Diagnosis: H90.3 Bilateral Sensorineural Hearing Loss Signature: Provider: Bernie Duvall, CCC-A
--- NOTE | 2025-03-01 10:38 | MHC.AU.MED ---
Addendum entered and electronically signed by Bernie Duvall, CCC-A 03/01/25 10:39: PLEASE HAVE SIGNED BY , CANNOT ACCEPT PA/MACHINIST SUPERVISOR OUTSIDE SIGNATURE Original Note: Medical Clearance for Hearing Instrumentation Date: 03/01/25 Patient Name: Kait Mar Date of : 1970 Referring Provider: Angel Heard PA-C We have seen your patient on 03/01/25 and have determined that they are a candidate for amplification (See accompanying report). Specifically, they would benefit from: Hearing aid use in both ears There is a statute that addresses Medical Evaluation Requirements prior to fitting a patient with a hearing aid. According to [place] statute 265 CMR:6.03(1), (a) General. Except as provided in 265 CMR 6.03(1)(b), a speech and hearing clinic director shall not sell a hearing aid unless the prospective user has presented to the speech and hearing clinic director a written statement signed by a licensed physician that states that the patient's hearing loss has been medically evaluated and the patient may be considered a candidate for a hearing aid. The medical evaluation must have taken place within the preceding six months. Please note: Due to the [place] Statute referenced above, we cannot accept a signature other than that of a licensed physician. MACHINIST SUPERVISOR OUTSIDE and PA signatures cannot be accepted. I am in agreement with the above recommendation. There is no medical contraindication for hearing instrumentation. Physician Signature Date Physician Name (Printed)
== END 2025-03-01 09:00 | disposition home or self-care (01) ==
LOC: HO.SH 08:59
PROVIDERS: Visit Provider Physician Assistant
DX: Z01.118 Encounter for examination of ears and hearing with other abnormal findings (principal); Z46.1 Encounter for fitting and adjustment of hearing aid; H90.3 Sensorineural hearing loss, bilateral
CPT/HCPCS: 92557; 92591; V5275

== ENCOUNTER 2025-04-25 15:12 | Outpatient (AMB) | payer OTHER, SELFPAY ==
--- OUTSIDE RECORDS SUMMARY | 2025-04-25 16:04 | XMS_ITS | Clinical Summary ---
Author Organization [address] [place] [address] Address [address] [place] [address] Phone Care Team Providers Care Cold Meat Chef Name Role Phone Angel Heard Primary Care Provider [phone] Social History Tobacco Use Types Packs/Day Years Used Date Smoking Tobacco: Never Assessed Comments Unknown Sex and Gender Information Value Date Recorded Sex Assigned at Not on file Legal Sex Female 9:50 AM EST Gender Identity Not on file Sexual Orientation Not on file Plan of Treatment Upcoming Encounters Date Type Department Care Team ([facility] Contact Info) Description 05/17/2025 10:30 AM EDT Consult Orthopedic Surgery - [place] [address] [id number] Jose Jack DPM [address] [address] Health Maintenance Due Date Last Done Comments Breast Cancer Screening 1970 DTaP,Tdap,and Td Vaccines (1 - Tdap) 1990 Hepatitis B Vaccines (1 of 3 - 19+ 3-dose series) 1990 Cervical Cancer Screening: P ap Smear 1992 Pneumococcal Vaccine: 50+ Ye ars (1 of 1 - PCV) 2021 Zoster Vaccines (1 of 2) 2021 COVID-19 Vaccine ( - 2023-2 5 season) 2024 Depression Screening 09/28/2024 Colorectal Cancer Screening: Colonoscopy 03/01/2025 HIV Screening 03/01/2025 Hepatitis C Screening 03/01/2025 Social Influencers of Health Screening 03/01/2025 Influenza Vaccine (#1) 2025 HIB Vaccines Aged Out No longer [...] on patient's age to complete this topic Insurance [facility] - [place] Care Teams Cold Meat Chef Relationship Specialty Start Date End Date Angel Heard PA [address] [place] [address] PCP - General Physician Sealing And Canceling Machine Operator 03/01/25
[2025-04-25 16:08] VITALS: PULSE 70; TEMP 36.7; O2SAT 96; BMI 31.4
--- NOTE | 2025-04-25 16:08 | AM.OFFWIN_ITS ---
Intake Vital Signs 04/25/25 16:08 Height 5 ft 1 in Weight 166 lb BMI 31.4 Pulse 70 Pulse Source Pulse Oximeter Temp 98.0 F Temp Source Oral Pulse Oximetry (%) 96 Oxygen Delivery Method Room Air Intake Visit Reasons: EP Rash Patient Tobacco Use Status: Never used Tobacco Microcomputer Support Specialist Required: No Allergies diphtheria,pertussis (acellular),te (From Adacel(Tdap Adolesn/Adult)(PF)) Allergy (Severe, Verified 04/25/25 16:10) Swelling codeine Allergy (Intermediate, Verified 04/25/25 16:10) hives Influenza Virus Vaccines Allergy (Intermediate, Verified 04/25/25 16:10) arm swelling morphine Allergy (Intermediate, Verified 04/25/25 16:10) hives penicillin G (Penicillin G) Allergy (Mild, Verified 04/25/25 16:10) ITCH,HIVES doxepin Adverse Reaction (Intermediate, Verified 04/25/25 16:10) urinary frequency lisinopril Adverse Reaction (Intermediate, Verified 04/25/25 16:10) Cough amlodipine Adverse Reaction (Mild, Verified 04/25/25 16:10) dizziness Do you need a note to return to daycare/school/sports/work: Yes HPI HPI Comments History of Present Illness Details History - The patient is a 54-year-old female pr esenting with rash and itching. - Rash began two days ago, accompanied b y itching and ear pain. - No new products or medications used. - Rash worsens with cream application, s pecific cream unknown. - Rash is red, itchy, and widespread. - Right ear pain with no pain on bone be hind ear, no drainage, pain below the ear - no fevers, - Recent detergent change to Sawitel, po tential allergen. Physical Exam General: Cooperative, healthy appearing, comfortable, no acute distress and well developed Orientation: Patient oriented x3 Limitations: No limitations Head: Normal to inspection Ears: Hearing grossly normal bilaterally,TM with scant fluid on right, left TM is normal Nose: Normal External nose present Face and sinus: Normal facial exam Mouth: Normal, moist oral mucosa Eyes: Appearance normal, both eyes and all related structures Neck: Normal visual inspection and Yes full ROM Respiratory: Normal respiratory effort and able to speak in complete sentences. Skin: left lower abdomen with 2cm x 2cm patch of raised erythema with papules. no warmth, no drainage. Neuro: Patient oriented x3 Extremities: Moving all extremities normally [facility] Medical History COPD (chronic obstructive pulmonary disease) Osteoarthritis HTN (hypertension) Hypertriglyceridemia Anemia Pancreatitis GERD (gastroesophageal reflux disease) Trigeminal neuralgia of right side of face UTI (urinary tract infection) History of Clostridioides difficile colitis Surgical History Hx of arthroscopy of left knee H/O breast biopsy History of laparoscopic cholecystectomy Family History Father Colon cancer Mother No problems noted. Sister No problems noted. 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 Contact Dermatitis - Prescribed steroid cream for 7-10 days. - Advised hypoallergenic detergent use. 2. Ear Fluid Accumulation - Increase fluid intake for drainage. - Monitor for infection signs. - Can use Flonase BID x7 days (2) Contact dermatitis: Code(s): L25.9 - Unspecified contact dermatitis, unspecified cause Qualifiers: Contact dermatitis type: allergic Contact dermatitis trigger: other chemical product Qualified Code(s): L23.5 - Allergic contact dermatitis due to other chemical products Plan: as above Medications: New triamcinolone acetonide 0.1% 1 appl topical BID 30 grams 0RF Coding Level of Care Code Est Pt Level 4 (28030) Diagnoses Non-recurrent acute serous otitis media of right ear H65.01 Recurrence: non-recurrent Allergic dermatitis due to other chemical product L23.5 Contact dermatitis type: allergic Contact dermatitis trigger: other chemical product
== END 2025-04-25 16:32 | disposition home or self-care (01) ==
PROVIDERS: PCP Internal Medicine; Visit Provider Physician Assistant
DX: H65.01 Acute serous otitis media, right ear (principal); L23.5 Allergic contact dermatitis due to other chemical products

== ENCOUNTER → 2025-04-25 15:12 | Outpatient (BNVA) | payer OTHER, SELFPAY | PROVIDERS: PCP Internal Medicine; Visit Provider Physician Assistant | DX: H65.01 Acute serous otitis media, right ear (principal); L23.5 Allergic contact dermatitis due to other chemical products | CPT/HCPCS: 99212 ==

== ENCOUNTER 2025-05-02 12:23 | Outpatient (AMB) | payer OTHER, SELFPAY ==
[2025-05-02 12:41] VITALS: BP 132/78; PULSE 87; TEMP 36.7; O2SAT 99; BMI 31.6
--- NOTE | 2025-05-02 12:41 | AM.OFFWIN_ITS ---
Intake Vital Signs 05/02/25 12:41 Height 5 ft 1 in Weight 167 lb BMI 31.6 BP 132/78 Blood Pressure Location Rt brachial Position Sitting Pulse 87 Pulse Source Pulse Oximeter Temp 98.1 F Temp Source Oral Pulse Oximetry (%) 99 Intake Visit Reasons: EP Rash is getting worse, UTI? 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 Required: No Is last menstrual period known: Yes Last menstrual period: 11/14/24 Post menopausal: No Patient : No Allergies diphtheria,pertussis (acellular),te (From Adacel(Tdap Adolesn/Adult)(PF)) Allergy (Severe, Verified 05/02/25 12:52) Swelling codeine Allergy (Intermediate, Verified 05/02/25 12:52) hives Influenza Virus Vaccines Allergy (Intermediate, Verified 05/02/25 12:52) arm swelling morphine Allergy (Intermediate, Verified 05/02/25 12:52) hives penicillin G (Penicillin G) Allergy (Mild, Verified 05/02/25 12:52) ITCH,HIVES doxepin Adverse Reaction (Intermediate, Verified 05/02/25 12:52) urinary frequency lisinopril Adverse Reaction (Intermediate, Verified 05/02/25 12:52) Cough amlodipine Adverse Reaction (Mild, Verified 05/02/25 12:52) dizziness Do you need a note to return to daycare/school/sports/work: Yes HPI HPI Comments History of Present Illness Details History - The patient is a 54-year-old female pr esenting with a rash on the abdomen. - Initial treatment with triamcinolone c ream and Benadryl was ineffective. - Rash progressed to become warm and ten kwadwo. - does not inject any medications in thi s area - Reports urinary tract infection sympto ms: burning urination, malodorous urine. - No fever or blood in her urine reporte d. - Allergy to penicillin antibiotics Physical Exam General: Cooperative, healthy appearing, comfortable, no acute distress and well developed Orientation: Patient oriented x3 Limitations: No limitations Head: Normal to inspection Ears: Hearing grossly normal bilaterally Nose: Normal External nose present Face and sinus: Normal facial exam Mouth: normal, moist oral mucosa Eyes: Appearance normal, both eyes and all related structures Neck: Normal visual inspection and Yes full ROM Respiratory: Normal respiratory effort and able to speak in complete sentences. Skin: warm and erythematous raised confluent 4cm x 3cm area on the LLQ of the lower abdomen Neuro: Patient oriented x3 Extremities: moving all extremities normally PFSH Medical History COPD (chronic obstructive pulmonary disease) Osteoarthritis HTN (hypertension) Hypertriglyceridemia Anemia Pancreatitis GERD (gastroesophageal reflux disease) Trigeminal neuralgia of right side of face UTI (urinary tract infection) History of Clostridioides difficile colitis Surgical History Hx of arthroscopy of left knee H/O breast biopsy History of laparoscopic cholecystectomy Family History Father Colon cancer Mother No problems noted. Sister No problems noted. 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 Current occupational exposures/hazards: No Cognitive needs: No Hearing needs: Yes Vision needs: Yes (reading glasses) Female Reproductive History Menstrual Date of last menstrual period: 11/14/24 Review of Systems Const All systems reviewed & are unremarkable except as noted in HPI and below Physical Exam Vital Signs: Last Vital Signs Temp 98.1 F 05/02/25 12:41 Pulse 87 05/02/25 12:41 BP 132/78 05/02/25 12:41 Pulse Ox 99 05/02/25 12:41 BMI result Body Mass Index 31.6 Results AMB Urinalysis, Automated UA Leukoctes 70 Chuy/uL Last Edit by Yuliana Garcia MA on 05/02/25 13:06 UA Nitrite Negative Last Edit by Yuliana Garcia MA on 05/02/25 13:06 UA Urobilinogen 0.2 mg/dL Last Edit by Yuliana Garica MA on 05/02/25 13:06 UA Protein 0 mg/dL Last Edit by Yuliana Garcia MA on 05/02/25 13:06 UA pH 5.5 Last Edit by Yuliana Garcia MA on 05/02/25 13:06 UA Blood 0 Douglas/uL Last Edit by Yuliana Garcia MA on 05/02/25 13:06 UA Specific [place] 1.020 Last Edit by Yuliana Garcia MA on 05/02/25 13:06 UA Ketone Negative Last Edit by Yuliana Garcia MA on 05/02/25 13:06 UA Bilirubin 0 mg/dL Last Edit by Yuliana Garcia MA on 05/02/25 13:06 UA Glucose 0 mg/dL Last Edit by Yuliana Garcia MA on 05/02/25 13:06 Results Reviewed Results Reviewed: Laboratory Last Values Urine pH (Auto) 5.5 05/02/25 12:57 Specific [place] (Auto) 1.020 05/02/25 12:57 Urine Protein (Auto) 0 mg/dL 05/02/25 12:57 Glucose (UA)(Auto) 0 mg/dL 05/02/25 12:57 Urine Ketones (Auto) Negative 05/02/25 12:57 Urine Blood (Auto) 0 Douglas/uL 05/02/25 12:57 Urine Nitrite (Auto) Negative 05/02/25 12:57 Urine Bilirubin (Auto) 0 mg/dL 05/02/25 12:57 Urine Urobilinogen (Auto) 0.2 mg/dL 05/02/25 12:57 Leukocyte Esterase (Auto) 70 Chuy/uL 05/02/25 12:57 Assessment & Plan Assessment & Plan (1) UTI (urinary tract infection): Code(s): N39.0 - Urinary tract infection, site not specified Qualifiers: Urinary tract infection type: site unspecified Hematuria presence: without hematuria Qualified Code(s): N39.0 - Urinary tract infection, site not specified Plan: Plan Patient was informed and verbally consented to the use of an ambient scribe for clinic note documentation during this visit Urinary Tract Infection - Keflex prescribed for UTI, urine culture to confirm efficacy. - Monitor symptoms, await potential antibiotic adjustment. (2) Cellulitis: Code(s): L03.90 - Cellulitis, unspecified Qualifiers: Site of cellulitis: other site Qualified Code(s): L03.818 - Cellulitis of other sites Plan: Cellulitis - Keflex prescribed for cellulitis of the lower abdomen, every six hours for one week. - Continue triamcinolone cream on unaffected areas only. Orders: Orders Urine Culture Today Rosina Chamberlain PA-C N39.0 - Urinary tract infection, site not specified AMB Urinalysis Automated Today Piper Lopez PA-C Z13.9 - Encounter for screening, unspecified Medications: New cephalexin 500 mg PO Q6H 28 caps 0RF Rosina Chamberlain PA-C Coding Level of Care Code Est Pt Level 4 (83224) Diagnoses Urinary tract infection without hematuria, site unspecified N39.0 Urinary tract infection type: site unspecified Hematuria presence: without hematuria Cellulitis of other specified site L03.818 Site of cellulitis: other site
--- OUTSIDE RECORDS SUMMARY | 2025-05-02 13:00 | XMS_ITS | Clinical Summary ---
Author Organization [address] [place] [address] Address [address] [place] [address] Phone Care Team Providers Care President Of [place] Name Role Phone Angel Heard Primary Care Provider Social History Tobacco Use Types Packs/Day Years Used Date Smoking Tobacco: Never Assessed Comments Unknown Sex and Gender Information Value Date Recorded Sex Assigned at Not on file Legal Sex Female 9:50 AM EST Gender Identity Not on file Sexual Orientation Not on file Plan of Treatment Upcoming Encounters Date Type Department Care Team ([facility] Contact Info) Description 05/17/2025 10:30 AM EDT Consult Orthopedic Surgery - [place] [id number] [phone] Jose Jack DPM [address] [address] Health Maintenance Due Date Last Done Comments [...] patient's age to complete this topic Insurance [facility] MEDICAID - [place] Care Teams President Of [place] Relationship Specialty Start Date End Date Angel Heard PA [address] [place] [address] PCP - General Physician Melter Clerk 03/01/25
== END 2025-05-02 14:19 | disposition home or self-care (01) ==
PROVIDERS: PCP Internal Medicine; Visit Provider Physician Assistant
DX: N39.0 Urinary tract infection, site not specified (principal); L03.818 Cellulitis of other sites; Z13.9 Encounter for screening, unspecified

== ENCOUNTER 2025-05-02 12:23 | Outpatient (REF) | payer OTHER, SELFPAY | END 2025-05-02 12:24 | disposition home or self-care (01) | LOC: HO.LAB 12:23 | PROVIDERS: Physician Assistant; PCP Internal Medicine | DX: L03.311 Cellulitis of abdominal wall (principal); N39.0 Urinary tract infection, site not specified | CPT/HCPCS: 81003; 87086; 99212 ==

== ENCOUNTER 2025-05-23 13:00 | Outpatient (REF) | payer OTHER, SELFPAY ==
--- OUTSIDE RECORDS SUMMARY | 2025-05-23 13:46 | XMS_ITS | Clinical Summary ---
Author Organization [address] [facility] Address [address] [place] [address] Phone Care Team Providers Care Security Assurance Specialist Name Role Phone Angel Heard Primary Care Provider [phone] Allergies Active Allergy Reactions Criticality Noted Date Comments Penicillin Rash 05/04/2025 Medications albuterol HFA (PROAIR HFA ; PROVENTIL HFA ; VENTOLIN HFA) 90 mcg/actuation inhaler Inhale 2 puffs by mouth every 6 (six) hours if needed for wheezing. Active ascorbic acid (VITAMIN C) 250 mg tablet Take 2 tablets (500 mg total) by mouth 1 (one) time each day. Active cholecalcifero l (VITAMIN D-3) 1,250 mcg (50,000 unit) capsule Take 1 capsule (50,000 Units total) by mouth 1 (one) time per week. Active ibuprofen (ADVIL,MOTRIN) 600 mg tablet Take by mouth. A ctive loratadine (CLARITIN) 10 mg tablet Take 1 tablet (10 mg total) by mouth 1 (one) time each day. Active LORazepam (ATIVAN) 0.5 mg tablet Take 1 tablet (0.5 mg total) by mouth every 6 (six) hours if needed for anxiety. Max Daily Amount: 2 mg Active losartan (COZAAR) 25 mg tablet Take 1 tablet (25 mg total) by mouth 1 (one) time each day. Active multivitamin with minerals tablet Take 1 tablet by mouth 1 (one) time each day. Active omeprazole (PriLOSEC) [address] capsule Take 1 capsule (20 mg total) by mouth 1 (one) time each day. Do not crush or chew. Active simvastatin (ZOCOR) 10 mg tablet Take 1 tablet (10 mg total) by mouth at bedtime. Active traZODone (DESYREL) 150 mg tablet Take 200 mg by mouth at bedtime. Active triamcinolone (KENALOG) 0.1 % cream Apply topically 2 (two) times a day. Active ketoconazole (NIZORAL) 2 % cream Apply topically 2 (two) times a day for 10 days. Apply to affected area after mixing with the triamcinolone 30 g 5 025 triamcinolone (KENALOG) 0.1 % cream Apply topically 2 (two) times a day for 10 days. Apply to affected area twice daily after mixing with the ketoconazole cream in the palm of your hand 30 g 5 025 Active Problems Problem Noted Date Diagnosed Date COPD (chronic obstructive pu lmonary disease) ([facility] V24, [facility] V28) 05/16/2025 Osteoarthritis 05/16/2025 Hypertension 05/16/2025 Hypertriglyceridemia 05/16/2025 Anemia 05/16/2025 Pancreatitis 05/16/2025 GERD (gastroesophageal reflux disease) Trigeminal neuralgia of right side of face 05/16 UTI (urinary tract infection) 05/16/2025 History of Clostridioides difficile colitis 04/28 Encounters Date Type Department Care Team Description 05/04/2025 2:43 PM EDT - 05/04/2025 3:[address] [facility] Emergency [address] [place] [address] Eczema, unspecified type (Primary Dx); Tinea Discharge Disposition: Home or Self Care from Last 3 Months Medical History Medical History Date Comments Hypertension High cholesterol Social History Tobacco Use Types Packs/Day Years Used Date Smoking Tobacco: Never Assessed Comments Unknown Sex and Gender Information Value Date Recorded Sex Assigned at Not on file Legal Sex Female 9:50 AM EST Gender Identity Not on file Sexual Orientation Not on file Obstetrics History Last Filed Vital Signs Vital Sign Reading Time Taken Comments Blood Pressure 169/99 05/04/2025 2:47 PM EDT Pulse 90 05/04/2025 2:47 PM EDT Temperature 36.6 C (97.8 F) 05/04/2025 2:47 PM EDT Respiratory Rate 18 05/04/2025 2:47 PM EDT Oxygen Saturation 99% 05/04/2025 2:47 PM EDT Inhaled Oxygen Concentration - - Weight 75.8 kg (167 lb) 05/04/2025 2:47 PM EDT Height 154.9 cm (5' 1 ) 05/04/2025 2:47 PM EDT Body Mass Index 31.55 05/04/2025 2:47 PM EDT Plan of Treatment Health Maintenance Due Date Last Done Comments Breast Cancer Screening 1971 Hepatitis B Vaccines (1 of 3 - 19+ 3-dose series) 1990 Pneumococcal Vaccine: 50+ Years (1 of 2 - PCV) 1990 Cervical Cancer Screening: Pap Smear 1992 Zoster Vaccines (2 of 2) 09/04/2023 07/10/2023 COVID-19 Vaccine ( season) 2024 09/12/2021, 12/21/2020, 11/30/2020 Depression Screening 09/28/2024 Cholesterol Screening (Lipid Panel) 03/01/2025 Colorectal Cancer Screening: Colonoscopy 03/01/2025 HIV Screening 03/01/2025 Hepatitis C Screening 03/01/2025 Social Influencers of Health Screening 03/01/2025 Hypertension/CHF/CAD Annual BMP Blood Test 05/16/2025 Influenza Vaccine (#1) 2025 4, 07/10/2022, 07/04/2021, Additional history exists DTaP,Tdap,and Td Vaccines (2 - Td or Tdap) 03/28/2030 03/28/2020 HIB Vaccines Aged Out No longer eligi [...] to complete this topic RSV Immunization Patients Under 20 months Aged Out No longer eligible based on patient's age to complete this topic Varicella Vaccines Aged Out No longer eligible based on patient's age to complete this topic Insurance [facility] Care Teams Security Assurance Specialist Relationship Specialty Start Date End Date nAgel Heard PA [address] [place] [phone] PCP - General Physician Laborer Pole Crew 03/01/25
--- NOTE | 2025-05-23 14:15 | MHC.AU.HA2 ---
Hearing Instrument Fitting- Adult- Binaural Date of Visit: 05/23/25 Hearing Instruments Dispensed: Right Ear: Make, Model, Color, Serial Number: Wu Fuenteso [id number] SN: [id number] Color: Sand Beige Staff Interpreter Repair Warranty: 05/17/2028 Staff Interpreter Loss and Damage Warranty: 05/17/2028 [facility] Service Plan: 05/23/2026 Battery Size: Rechargeable [employer] Floorperson/Slim Tube: 1P Earmold/Dome/CShell/SlimTip: Canal cshell SN: [id number] Adam: 08/15/2025 Type of Wax Guard: CeruStop Left Ear: Joshua, Model, Color, Serial Number: Wu Fuenteso [id number] SN: [id number] Color: Sand Beige Staff Interpreter Repair Warranty: 05/17/2028 Staff Interpreter Loss and Damage Warranty: 05/17/2028 [facility] Service Plan: 05/23/2026 Battery Size: Rechargeable [employer] Floorperson/Slim Tube: 1P Earmold/Dome/CShell/SlimTip: Canal cshell SN: [id number] Adam: 08/15/2025 Type of Wax Guard: CeruStop Accessories/Assistive Technology: Phonak Internet Programmer ANTON SN: [id number] Summary of Fitting: Could not run real ear measures due to equipment malfunction - will complete at follow up. Ran feedback investments manager. Too loud at initial fit settings, decreased to 80% gain level for comfort. Discussed acclimatization period and importance of daily, consistent use, as it has been a long time since wearing HAs consistently. Reviewed care, use, and rechargeability including manually turning on/off, VC use, changing wax guard. Practiced insertion and removal. No interest in bluetooth at this time. Recommendations: A hearing instrument follow-up was scheduled. Diagnosis Code(s): Primary Diagnosis: H90.3 Bilateral Sensorineural Hearing Loss Signature: Provider: Parker Mcdonough, [facility]
== END 2025-05-23 13:01 | disposition home or self-care (01) ==
LOC: HO.HAP 13:00
PROVIDERS: Visit Provider Internal Medicine
DX: Z46.1 Encounter for fitting and adjustment of hearing aid (principal); H90.3 Sensorineural hearing loss, bilateral
CPT/HCPCS: V5011; V5160; V5261; V5264

== ENCOUNTER 2025-06-08 10:45 | Outpatient (AMB) | payer OTHER, SELFPAY ==
[2025-06-08 10:56] VITALS: BP 120/74; PULSE 68; TEMP 36.4; O2SAT 99; BMI 31.3
--- NOTE | 2025-06-08 10:56 | MHC.PC.OV ---
Vital Signs 06/08/25 10:56 Height 5 ft 1 in Weight 165 lb 8 oz BMI 31.3 BP 120/74 Blood Pressure Location Lt brachial Position Sitting Pulse 68 Pulse Source Pulse Oximeter Temp 97.5 F Temp Source Temporal Artery Scan Pulse Oximetry (%) 99 Oxygen Delivery Method Room Air Intake Visit Reasons: f/u HLD /HTN Allergies diphtheria,pertussis (acellular),te (From Adacel(Tdap Adolesn/Adult)(PF)) Allergy (Severe, Verified 06/08/25 11:26) Swelling codeine Allergy (Intermediate, Verified 06/08/25 11:26) hives Influenza Virus Vaccines Allergy (Intermediate, Verified 06/08/25 11:26) arm swelling morphine Allergy (Intermediate, Verified 06/08/25 11:) hives penicillin G (Penicillin G) Allergy (Mild, Verified 06/08/25 11:26) ITCH,HIVES doxepin Adverse Reaction (Intermediate, Verified 06/08/25 11:26) urinary frequency lisinopril Adverse Reaction (Intermediate, Verified 06/08/25 11:26) Cough amlodipine Adverse Reaction (Mild, Verified 06/08/25 11:26) dizziness Medication List - Last Reconciled 06/08/25 by Angel Heard PA-C albuterol sulfate 90 mcg/actuation (Ventolin HFA) 1 puff inhalation QID PRN ascorbic acid (vitamin C) 500 mg PO DAILY cholecalciferol (vitamin D3) 25 mcg PO DAILY ibuprofen 600 mg PO Q8H PRN 30 days ketoconazole 2% appl topical loratadine 10 mg PO DAILY 90 days lorazepam 0.5 mg PO DAILY PRN 4 days losartan 25 mg PO DAILY 90 days multivitamin 1 tab PO DAILY multivitamin with minerals (Hair,Skin and Nails tablet) 1 tab PO DAILY omeprazole 20 mg PO DAILY quetiapine (Seroquel) 50 mg PO BEDTIME 30 days simvastatin 20 mg PO BEDTIME trazodone 200 mg (2 x 100 mg) PO DAILY 90 days Held on 02/27/25. Instructions: Doctor's Order triamcinolone acetonide 0.1% 1 appl topical BID Tobacco use date assessed: 06/08/25 Dental Screening Dental Screen Date: 06/08/25 Did you have a dental visit in the last 12 months?: Yes Did you have a dental problem in the last 6 months where you did not have access to dental care?: No Was dental information given to patient?: Patient has dentist HPI f/u HLD /HTN HPI Details Patient is a 54-year-old female here today for a follow-up visit.? Patient has a past medical history significant for hypertension, migraines, spastic bladder, osteoarthritis. Concern--> The patient reports experiencing hot flashes and excessive sweating, particularly at night, which she associates with menopause. She has not had menstruation since July, indicating she may be perimenopausal. The patient has been advised to consider supplemental estrogen and was informed about the [id number] supplement black cohosh. .. Class 1 obesity: The patient is concerned about her weight, which has remained stable at around 165 pounds despite engaging in regular exercise and maintaining a healthy diet. She is interested in consulting a e commerce analyst to assist with weight management and cholesterol issues. .. Hypertension:? Blood pressure today in office acceptable . She continues with losartan ? Otherwise denies any headaches, chest discomfort, vision issues of shortness of breath. ? promises to consistently take her amlodipine for better blood pressure control.? .. Hyperlipidemia: Most recent lipid panel showing elevated total cholesterol patient does admit to dietary indiscretion. She is now willing to start low-dose statin therapy to reduce her cardiovascular risk. [facility] Medical History COPD (chronic obstructive pulmonary disease) Osteoarthritis HTN (hypertension) Hypertriglyceridemia Anemia Pancreatitis GERD (gastroesophageal reflux disease) Trigeminal neuralgia of right side of face UTI (urinary tract infection) History of Clostridioides difficile colitis Surgical History Hx of arthroscopy of left knee H/O breast biopsy History of laparoscopic cholecystectomy Family History Father Colon cancer Mother No problems noted. Sister No problems noted. 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 1. Little interest or pleasure in doing things: not at all 2. Feeling down, depressed, or hopeless: not at all 3. Trouble falling or staying asleep, or sleeping too much: several days 4. Feeling tired or having little energy: not at all 5. Poor appetite or overeating: not at all 6. Feeling bad about yourself - or that you are a failure or have let yourself or your family down: not at all 7. Trouble concentrating on things, such as reading the newspaper or watching television: not at all 8. Moving or speaking so slowly that other people could have noticed. Or the opposite - being so fidgety or restless that you have been moving around a lot more than usual: not at all 9. Thoughts that you would be better off or of hurting yourself in some way: not at all Total score: 1 Depression Screening Interpretation: Negative Depression Screening Done: Yes 77616 - PHQ-9 Billing: Yes Source: Developed by Drs. Russ Armstrong, Chantelle Kent, Jason Lilly and colleagues, with an educational billy from [employer]. Thrive Questionnaire Date Thrive assessed: 12/06/24 I am a: Patient What is your living situation today?: I have a steady place to live Within the past 12 months, did the food you bought not last and you didn't have the money to get more?: I choose not to answer this question Within the past 12 months, did you worry whether your food would run out before you got money to buy more?: I choose not to answer this question Do you have trouble paying for medicines?: No Do you have trouble getting transportation to medical appointments?: No Do you have trouble paying your heating and electricity bill?: No Do you have trouble taking care of your child, family member or friend?: No Do you have trouble with day-to-day activities such as bathing, preparing meals, shopping, managing finances, etc.?: No Are you currently unemployed and looking for a job?: No Are you interested in more education?: No Please select the resources that you would like help with: None Currently or been in a relationship where the following occur: I choose not to answer THRIVE Score: 0 AUDIT C Alcohol Use Questionnaire (AUDIT-C) 1. How often do you have a drink containing alcohol?: Monthly or less 2. How many drinks containing alcohol do you have on a typical day when you are drinking?: 1 or 2 3. How often do you have six or more drinks on one occasion?: Never Total Score: 1 CHIDI-7 AMB Questionnaire CHIDI-7 Date CHIDI - 7 assessed: 12/06/24 Feeling nervous, anxious, or on edge: 0 = Not at all Not being able to stop or control worryin = Not at all Worrying too much about different things: 3 = Nearly every day Trouble relaxin = Not at all Being so restless that it is hard to sit still: 0 = Not at all Becoming easily annoyed or irritable: 0 = Not at all Feeling afraid as if something awful might happen: 0 = Not at all Total CHIDI-7 score (0-4 normal; 5-9 mild; 10-14 moderate; 15-21 severe): 3 Source: Developed by Drs. Russ Armstrong, Chantelle Kent, Jason Lilly and colleagues, with an educational billy from [employer]. Review of Systems Const Denies headache(s) Eyes Denies loss of vision ENT Denies vertigo, Denies dizziness, Denies headache(s) and Denies sore throat Card Denies chest pain, Denies leg edema and Denies lightheadedness Resp Denies cough, Denies hemoptysis and Denies wheezing GI Denies abdominal pain, Denies melena, Denies constipation, Denies diarrhea and Denies vomiting Denies urinary frequency, Denies dysuria and Denies urinary urgency Musc Denies arthralgias, Denies joint swelling, Denies numbness and Denies tingling Neuro Denies Abnormal speech present, Denies behavioral changes, Denies vertigo, Denies dizziness, Denies headache(s), Denies loss of vision, Denies memory loss, Denies numbness and Denies tingling Psych Denies anxiety, Denies behavioral changes, Denies depression, Denies memory loss and Denies panic attacks Gaetano/Lymph Denies easy bleeding and Denies easy bruising Aller/Immun Denies wheezing Physical exam (Primary Care) Vital Signs: Last Vital Signs Temp 97.5 F 06/08/25 10:56 Pulse 68 06/08/25 10:56 BP 120/74 06/08/25 10:56 Pulse Ox 99 06/08/25 10:56 Oxygen Delivery Method Room Air 06/08/25 10:56 BMI result Body Mass Index 31.3 BMI Assessment/Plan discussion: High BMI High, discussed plan: lifestyle, weight reduction, dietary and physical activity Tobacco/Smoking Status: Tobacco use Status Tobacco use date assessed 06/08/25 06/08/25 11:01 Patient Tobacco Use Status Never used Tobacco 06/08/25 11:01 e-Cigarette/Vaping Use Never Used 06/08/25 11:01 PHQ-9: PHQ-9 Score PHQ-9: Total score 1 06/08/25 11:01 Depression Screening Interpretation: Negative Thrive Assessment: Date of Thrive Assessment Date Thrive assessed 12/06/24 06/08/25 11:01 Currently or been in a relationship where the following occur: I choose not to answer Const Other: OBESE General: healthy appearing, no acute distress, alert and awake Nutritional Appearance: well nourished Orientation/consciousness: oriented to person, oriented to place and oriented to time HENMT Ears: TM's normal bilaterally General nose exam: Normal nasal mucous membranes and turbinates present Eyes Conjunctivae: conjunctivae normal Sclerae: sclerae normal Pupils: Equal, round and reactive pupils present Neck Neck: Yes no lymphadenopathy and Yes no JVD Thyroid: Thyroid normal Carotids: no bruits Resp Effort & Inspection: normal respiratory effort and not tachypneic Auscultation: no crackles, no rales, no rhonchi and no wheezes Cardio Rate: regular rate Rhythm: regular rhythm Heart sounds: no murmurs and normal S1 and S2 GI Palpation (GI): Soft to palpation, nontender, no hepatomegaly and no splenomegaly Auscultation: normal bowel sounds Skin General skin exam: no rashes or lesions noted and dry skin Neuro General: oriented to person, oriented to place and oriented to time Cranial nerves: Yes Equal, round and reactive pupils present Speech: No Abnormal speech present Gait exam (Neuro): Normal gait present Motor exam (neuro): no tremor noted Extrem Right upper extremity: full ROM Left upper extremity: full ROM Right lower extremity: full ROM; no edema Left lower extremity: full ROM; no edema Psych Mental Status: mental status grossly normal Speech and movement: Normal speech and movement present Affect: normal affect Attitude: cooperative Thought process: Normal thought process present Coding Level of Care Code Est Pt Level 4 (39066) Diagnoses Primary hypertension I10 Hypertension type: primary hypertension Hypertriglyceridemia E78.1 Fungal dermatitis B36.9 Menopausal symptom N95.1 Class 1 obesity E66.811 Additional Codes PHQ-9 - 79025 - PHQ-9 Billing: Yes ([id number]) Assessment & Plan Assessment & Plan (1) HTN (hypertension): Code(s): I10 - Essential (primary) hypertension Category: Medical Qualifiers: Hypertension type: primary hypertension Qualified Code(s): I10 - Essential (primary) hypertension Plan: Patient's blood pressure acceptable today in office. Will continue her current dose of antihypertensive medication with goal blood pressure to be below 140/90 (2) Hypertriglyceridemia: Code(s): E78.1 - Pure hyperglyceridemia Category: Medical Plan: Patient has a history of hyperlipidemia particularly hypertriglyceridemia. She is interested in speaking with the dietitian about a low triglyceride diet and a diet plan. She continues with the use of simvastatin 20 mg. Will recheck fasting lipids to ensure stable cholesterol panel. Goal total cholesterol to be below 100, LDL to be below 130 and triglycerides to be below 150 (3) Fungal dermatitis: Code(s): B36.9 - Superficial mycosis, unspecified Category: Medical Plan: Was noted to have fungal dermatitis over her lower abdomen, was started on ketoconazole topical treatment. Needs a refill on ketoconazole topical treatment (4) Menopausal symptom: Code(s): N95.1 - Menopausal and female climacteric states Category: Medical Plan: The patient reports hot flashes and excessive sweating, particularly at night, and has not menstruated since July, suggesting perimenopause. Discussion included the potential use of supplemental estrogen and the [id number] supplement black cohosh to manage symptoms. A referral to a farm service consultant for further management was recommended. (5) Class 1 obesity: Code(s): E66.811 - Obesity, class 1 Category: Medical Plan: Patient does understand her BMI is over 30 will work on being more physically active and adapting to better eating habits to reduce her weight. Orders: Orders Follicle Stimulating Hormone Today N95.1 - Menopausal and female climacteric states Lipid Panel Today E78.1 - Pure hyperglyceridemia Comprehensive [place]. Panel Fast Today I10 - Essential (primary) hypertension Complete Blood Count no Diff Today I10 - Essential (primary) hypertension Referrals Nutrition/Dietitian Referral E78.1 - Pure hyperglyceridemia Medications: New ketoconazole 2% 1 appl topical BID 60 grams 1RF 4 weeks B36.9 - Superficial mycosis, unspecified Refilled albuterol sulfate 90 mcg/actuation (Ventolin HFA) 1 puff inhalation QID PRN 18 ea 2RF for wheezing J30.9 - Allergic rhinitis, unspecified, J45.909 - Unspecified asthma, uncomplicated loratadine 10 mg PO DAILY 90 tabs 2RF 90 days J30.9 - Allergic rhinitis, unspecified omeprazole 20 mg PO DAILY 90 caps 1RF K21.9 - Gastro-esophageal reflux disease without esophagitis quetiapine (Seroquel) 50 mg PO BEDTIME 30 tabs 3RF 30 days F51.01 - Primary insomnia simvastatin 20 mg PO BEDTIME 90 tabs 1RF E78.1 - Pure hyperglyceridemia triamcinolone acetonide 0.1% 1 appl topical BID 30 grams 0RF losartan 25 mg PO DAILY 90 tabs 2RF 90 days I10 - Essential (primary) hypertension
== END 2025-06-08 11:47 | disposition home or self-care (01) ==
LOC: HO.HMCH 10:46
PROVIDERS: PCP Physician Assistant; Visit Provider Physician Assistant
DX: I10 Essential (primary) hypertension (principal); E78.1 Pure hyperglyceridemia; E66.811 Obesity, class 1; Z68.31 Body mass index [BMI] 31.0-31.9, adult; B36.9 Superficial mycosis, unspecified; N95.1 Menopausal and female climacteric states

== ENCOUNTER → 2025-06-08 10:45 | Outpatient (BNVA) | payer OTHER, SELFPAY | PROVIDERS: PCP Physician Assistant; Visit Provider Physician Assistant | DX: I10 Essential (primary) hypertension (principal); E78.1 Pure hyperglyceridemia; B36.9 Superficial mycosis, unspecified; N95.1 Menopausal and female climacteric states; E66.811 Obesity, class 1; Z68.31 Body mass index [BMI] 31.0-31.9, adult; Z79.899 Other long term (current) drug therapy; Z13.31 Encounter for screening for depression | CPT/HCPCS: 96127; 99212 ==

== ENCOUNTER 2025-06-16 10:23 | Outpatient (AMB) | payer OTHER, SELFPAY ==
--- NOTE | 2025-06-16 10:34 | AM.OFFVISNUR ---
Intake Visit Reasons: TB Implant Allergies diphtheria,pertussis (acellular),te (From Adacel(Tdap Adolesn/Adult)(PF)) Allergy (Severe, Verified 06/08/25 11:26) Swelling codeine Allergy (Intermediate, Verified 06/08/25 11:26) hives Influenza Virus Vaccines Allergy (Intermediate, Verified 06/08/25 11:26) arm swelling morphine Allergy (Intermediate, Verified 06/08/25 11:26) hives penicillin G (Penicillin G) Allergy (Mild, Verified 06/08/25 11:26) ITCH,HIVES doxepin Adverse Reaction (Intermediate, Verified 06/08/25 11:26) urinary frequency lisinopril Adverse Reaction (Intermediate, Verified 06/08/25 11:26) Cough amlodipine Adverse Reaction (Mild, Verified 06/08/25 11:26) dizziness Office Meds tuberculin PPD 5 tub. unit/0.1 mL intradermal injection solution Performing Provider: Angel Heard PA-C [facility] Administered by: Lisset Rivera LPN on 06/16/25 10:35 Dose Route Admin Location Dispensed Lot Number Expiration Date [facility] Retort Engineer 0.1 mL intradermal left forearm 0.1 mL [id number] 11/25/27 09252-758-79 [employer] Total Dispensed Waste 0.1 mL 0 % Assessment & Plan Assessment & Plan Orders: Orders AMB PPD Planted Today Z11.1 - Encounter for screening for respiratory tuberculosis Coding
--- OUTSIDE RECORDS SUMMARY | 2025-06-16 10:58 | XMS_ITS | Clinical Summary ---
Author Organization [address] [facility] Address [address] [place] [address] Phone Care Team Providers Care Liaison Engineer Name Role Phone Angel Heard Primary Care Provider [phone] Allergies Active Allergy Reactions Criticality Noted Date Comments Penicillin Rash 05/04/2025 Medications albuterol HFA (PROAIR HFA ; PROVENTIL HFA ; VENTOLIN HFA) 90 mcg/actuation inhaler Inhale 2 puffs by mouth every 6 (six) hours if needed for wheezing. Active ascorbic acid (VITAMIN C) 250 mg tablet Take 2 tablets (500 mg total) by mouth 1 (one) time each day. Active cholecalciferol (VITAMIN D-3) 1,250 mcg (50,000 unit) capsule [...] topically 2 (two) times a day. Active Active Problems Problem Noted Date Diagnosed Date COPD (chronic obstructive pu lmonary disease) ([facility] V24, [facility] V28) 05/16/2025 Osteoarthritis 05/16/2025 Hypertension 05/16/2025 Hypertriglyceridemia 05/16/2025 Anemia 05/16/2025 Pancreatitis 05/16/2025 GERD (gastroesophageal reflux disease) Trigeminal neuralgia of right side of face 05/16 UTI (urinary tract infection) 05/16/2025 History of Clostridioides difficile colitis 04/28 Encounters Date Type Department Care Team Description 05/04/2025 2:43 PM EDT - 05/04/2025 3:11 PM EDT Emergency [facility] Emergency [address] [place] [address] Eczema, unspecified type (Primary Dx); [...] Zoster Vaccines (2 of 2) 09/04/2023 07/10/2023 Depression Screening 09/28/2024 Cholesterol Screening (Lipid Panel) 03/01/2025 Colorectal Cancer Screening: Colonoscopy 03/01/2025 HIV Screening 03/01/2025 Hepatitis C Screening 03/01/2025 Social Influencers of Health Screening 03/01/2025 Hypertension/CHF/CAD Annual BMP Blood Test 05/16/2025 COVID-19 Vaccine (4 - season) 2025 09/12/2021, 12/21/2020, 11/30/2020 Influenza Vaccine (#1) 2025 4, 07/10/2022, 07/04/2021, [...] patient's age to complete [place] [id number] [facility] [address] Care Teams Liaison Engineer Relationship Specialty Start Date End Date Angel Heard PA [address] [place] [address] PCP - General Physician Lead Nitrate Processor 03/01/25
== END 2025-06-16 10:36 | disposition home or self-care (01) ==
LOC: HO.HMCH 10:24
PROVIDERS: PCP Physician Assistant; Visit Provider Physician Assistant
DX: Z11.1 Encounter for screening for respiratory tuberculosis (principal)

== ENCOUNTER 2025-06-16 10:36 | Outpatient (REF) | payer OTHER, SELFPAY ==
--- NOTE | ~2025-06-16 | MM_ITS ---
EXAMINATION: MM SCREENING DIGITAL BREAST TOMOSYNTHESIS, BILATERAL CLINICAL INFORMATION: Screening. Asymptomatic. COMPARISON: Comparison made to multiple prior, most recent June 10, 2024, and most remote December 07, 2019. TECHNIQUE: Digital breast tomosynthesis is performed in mediolateral oblique and craniocaudal views along with computer-aided detection (CAD). Synthesized 2D images are generated from the tomosynthesis. FINDINGS: BREAST COMPOSITION: There are scattered areas of fibroglandular density (ACR BI-RADS breast composition Category b). RIGHT BREAST: Tissue marker from previous needle core biopsy. No significant masses, suspicious calcifications or other abnormalities are seen. LEFT BREAST: No significant masses, suspicious calcifications or other abnormalities are seen. MM/MM tomosynthesis screening BI IMPRESSION: BILATERAL BREASTS: Benign, no mammographic evidence of malignancy. Normal interval follow-up is recommended in 12 months. ASSESSMENT: BI-RADS 2 - Benign Findings RECOMMENDATION: Routine annual mammography screening. FOLLOW-UP: 1 year F/U This examination should not preclude the clinical evaluation of a suspicious palpable abnormality. This patient's information was entered into a reminder system with a target due date for their next mammogram. Electronically signed by: Darwin Kim MD 06/20/2025 08:09 AM EDT
== END 2025-06-16 10:37 | disposition home or self-care (01) ==
LOC: HO.MAMMO 10:36
PROVIDERS: PCP Physician Assistant; Visit Provider Physician Assistant
DX: Z12.31 Encounter for screening mammogram for malignant neoplasm of breast (principal)
CPT/HCPCS: 77063; 77067; 86580

== ENCOUNTER → 2025-06-16 11:00 | Outpatient (BNV) | payer OTHER, SELFPAY | PROVIDERS: PCP Physician Assistant; Visit Provider Radiology Body Imaging | DX: Z12.31 Encounter for screening mammogram for malignant neoplasm of breast (principal) | CPT/HCPCS: 77063; 77067 ==

== ENCOUNTER → 2025-08-18 10:42 | Outpatient (BNVA) | payer SELFPAY | PROVIDERS: PCP Physician Assistant; Visit Provider Physician Assistant | DX: Z02.79 Encounter for issue of other medical certificate (principal) ==

== ENCOUNTER 2025-08-23 11:38 | Outpatient (REF) | payer OTHER, SELFPAY ==
--- NOTE | ~2025-08-23 | CT_ITS ---
EXAMINATION: CT HEAD WITHOUT CONTRAST CLINICAL INFORMATION: R51.9 - Headache, unspecified COMPARISON: None available. TECHNIQUE: Contiguous axial imaging was performed from the skull base to vertex without intravenous administration of contrast. This CT examination was performed using dose optimization techniques as appropriate, variously including the following: *Automated exposure control *Adjustment of mA and/or kV according to patient size (this includes techniques or standardized protocols for targeted exams where dose is matched to indication/reason for exam; i.e. extremities or head) *Use of iterative reconstruction technique FINDINGS: There is no acute ischemic change. There is no intracranial hemorrhage. There is no mass-effect or midline shift. Basal cisterns and ventricles are within normal limits for age/cerebral volume. Orbits are symmetrical and unremarkable. Paranasal sinuses and mastoid air cells are pneumatized. The volume of mastoid air cells is decreased on the left. There are no bony abnormalities. CT/CT head/brain wo IV con IMPRESSION: No acute intracranial abnormality. Electronically signed by: Nahid Espinoza MD 08/23/2025 12:11 PM [facility]
--- OUTSIDE RECORDS SUMMARY | 2025-08-23 14:45 | XMS_ITS | Clinical Summary ---
Author Organization [address] [facility] Address [address] [place] [address] Phone Care Team Providers Care Shoe Shanker Name Role Phone Angel Heard Primary Care Provider [phone] Allergies Active Allergy Reactions Criticality Noted Date [...] Date COPD (chronic obstructive pu lmonary disease) ([facility] V24, [facility] V28) 05/16/2025 Osteoarthritis 05/16/2025 Hypertension 05/16/2025 Hypertriglyceridemia 05/16/2025 Anemia 05/16/2025 Pancreatitis 05/16/2025 GERD (gastroesophageal reflux disease) Trigeminal neuralgia of right side of face 05/16 UTI (urinary tract infection) 05/16/2025 History of Clostridioides difficile colitis 04/28 Medical History Medical History Date Comments Hypertension [...] Last Done Comments Breast Cancer Screening 1971 Colorectal Cancer Screening: Colonoscopy 1971 Hepatitis B Vaccines (1 of 3 - 19+ 3-dose series) 1990 Pneumococcal Vaccine: 50+ Years (1 of 2 - PCV) 1990 Cervical Cancer Screening: Pap Smear 1992 RSV Immunization Adult Patients (1 - Risk 50-74 years 1-dose series) 2021 Zoster Vaccines (2 of 2) 09/04/2023 07/10/2023 Depression Screening 09/28/2024 Cholesterol Screening (Lipid Panel) 03/01/2025 HIV Screening 03/01/2025 Hepatitis C Screening [...] patient's age to complete this topic Insurance [facility] [address] Care Teams Shoe Shanker Relationship Specialty Start Date End Date Angel Heard PA [address] [place] [address] PCP - General Physician Plant Superintendent 03/01/25
== END 2025-08-23 11:39 | disposition home or self-care (01) ==
LOC: HO.CT 11:38
PROVIDERS: PCP Physician Assistant; Visit Provider Student in an Organized Health Care Education/Training Program
DX: R51.9 Headache, unspecified (principal)
CPT/HCPCS: 70450

== ENCOUNTER → 2025-08-23 11:40 | Outpatient (BNV) | payer OTHER, SELFPAY | PROVIDERS: PCP Physician Assistant; Visit Provider Radiology Diagnostic Radiology | DX: R51.9 Headache, unspecified (principal) | CPT/HCPCS: 70450 ==